=== PATIENT | male | born 1945 | race Hispanic/Latino ===

== ENCOUNTER 2018-06-22 05:44 | Emergency (ER) | payer MEDICARE ==
[2018-06-22] MEDS ORDERED: XYLOCAINE 1%/ EPI 1:100,000 INFILTRATI NR (07:00)
--- NOTE | 2018-06-22 07:22 | XRay Report ---
PROCEDURE: LEFT FOREARM TECHNIQUE: LEFT forearm radiographs, AP and lateral views. CPT 36489 HISTORY: Pain COMPARISONS: None . FINDINGS: Fracture (s) and/or Dislocation(s): None . Joint space(s): Normal . Soft tissues: There is generalized soft tissue swelling. . Bone mineralization: Normal . Foreign bodies: None . IMPRESSION: There is no fracture or malalignment. There is generalized soft tissue swelling. . This document is electronically signed by Francisco J Lugo MD., June 22 2018 07:20:38 AM ET
[2018-06-22] MEDS ORDERED: ZOFRAN ODT PO ONE (07:30)
[2018-06-22] MEDS ORDERED: ZOFRAN ODT ONE (07:33)
[2018-06-22] MEDS ORDERED: TRIPLE ANTIBIOTIC TP ONE ×2 (07:50→07:51)
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
[2018-06-22 09:03] VITALS: BP 101/56
== END 2018-06-22 09:05 | disposition home or self-care (01) ==
LOC: ED 05:44
DX: S61.522A Laceration with foreign body of left wrist, initial encounter (principal); I10 Essential (primary) hypertension; E11.9 Type 2 diabetes mellitus without complications; F17.200 Nicotine dependence, unspecified, uncomplicated; X99.1XXA Assault by knife, initial encounter; Y93.89 Activity, other specified; Y92.89 Other specified places as the place of occurrence of the external cause; Y99.8 Other external cause status
CPT/HCPCS: A6250; Q0162

== ENCOUNTER 2020-06-11 21:26 | Emergency (ER) | payer MEDICARE ==
[2020-06-11 22:38] VITALS: BP 155/77
== END 2020-06-11 22:36 | disposition left against medical advice (07) ==
LOC: ED 21:26
DX: Z53.21 Procedure and treatment not carried out due to patient leaving prior to being seen by health care provider (principal)

== ENCOUNTER 2021-11-16 12:05 | Inpatient (IN) | payer MEDICARE ==
--- NOTE | 2021-11-16 14:28 | XRay Report ---
CHEST 1 VIEW 11/16/2021 2:11 PM INDICATION / CLINICAL INFORMATION: Dyspnea. COMPARISON: 08/24/2012 FINDINGS: SUPPORT DEVICES: None. HEART / MEDIASTINUM: Cardiomediastinal silhouette is upper limits normal in size. LUNGS / PLEURA: Bibasilar opacities with mild interstitial prominence. No pneumothorax. ADDITIONAL FINDINGS: No significant additional findings. IMPRESSION: 1. Bibasilar opacities, which could represent pneumonia or atelectasis. 2. Mild interstitial prominence suggesting pulmonary edema. Signer Name: Cr Escobedo MD Signed: 11/16/2021 2:24 PM Workstation Name: [id number]
[2021-11-16] MEDS ORDERED: cefTRIAXone/NS 1 GM/50 ML 1 GM/50 ML BAG IV ONE (14:30)
[2021-11-16] MEDS ORDERED: AZITHROMYCIN/NS 500 MG/250 ML 500 MG/250 ML BAG IV ONE (14:30)
--- NOTE | 2021-11-16 14:37 | Emergency Department Report ---
ED Shortness of Breath HPI - General Chief Complaint: Dyspnea/Respdistress Stated Complaint: RAVINDER/CHEST PAIN Time Seen by Provider: 11/16/21 14:05 Source: patient, EMS, old records reviewed Mode of arrival: Stretcher Limitations: No Limitations - History of Present Illness Initial Comments: 76-year-old male with a past medical history of morbid obesity, hypertension, diabetes, and bipolar disorder presents to the hospital respiratory distress. Nurse reports a room air saturation of 80%. Patient required CPAP in route to the hospital with improvement in oxygenation. Patient apparently also complained of chest pain. At time my evaluation patient is currently on BiPAP and denies pain at this time. He denies home oxygen use EMS EKG reviewed and shows sinus tach with left anterior fascicular block. No STEMI - Related Data Home Medications Medication Instructions Recorded Confirmed Last Taken Aspirin EC [Halfprin EC] 81 mg PO QDAY 01/05/13 01/05/13 01/04/13 Buspirone HCl [busPIRone] 30 mg PO BID 01/05/13 01/05/13 01/04/13 atenoloL [Tenormin] 50 mg PO DAILY 01/05/13 01/05/13 01/04/13 hydroCHLOROthiazide [Hctz] 25 mg PO QDAY 01/05/13 01/05/13 01/04/13 verapamiL [Calan] 80 mg PO TID 01/05/13 01/05/13 01/04/13 Previous Rx's Medication Instructions Recorded Last Taken Type Naproxen [Naprosyn TAB] 500 mg PO BID #30 tablet 01/05/13 Unknown Rx methOCARBAMOL [Robaxin] 500 mg PO BID PRN #30 tab 01/05/13 Unknown Rx traMADoL [Ultram 50 MG tab] 50 mg PO Q6HR PRN #30 tablet 01/05/13 Unknown Rx Ibuprofen [Motrin] 800 mg PO Q8HR PRN #30 tablet 06/22/18 Unknown Rx Allergies Allergy/AdvReac Type Severity Reaction Status Date / Time Penicillins Allergy Unknown Verified 11/16/21 13:54 ED Review of Systems ROS: Stated complaint: RAVINDER/CHEST PAIN Other details as noted in HPI Comment: All other systems reviewed and negative ED Past Medical Hx - Past Medical History Hx Hypertension: Yes Hx Diabetes: Yes Hx Psychiatric Treatment: Yes (anxiety bipolar) - Social History Smoking Status: Never Smoker Substance Use Type: None - Medications Home Medications: Home Medications Medication Instructions Recorded Confirmed Last Taken Type Aspirin EC [Halfprin EC] 81 mg PO QDAY 01/05/13 01/05/13 01/04/13 History Buspirone HCl [busPIRone] 30 mg PO BID 01/05/13 01/05/13 01/04/13 History Naproxen [Naprosyn TAB] 500 mg PO BID #30 tablet 01/05/13 Unknown Rx atenoloL [Tenormin] 50 mg PO DAILY 01/05/13 01/05/13 01/04/13 History hydroCHLOROthiazide [Hctz] 25 mg PO QDAY 01/05/13 01/05/13 01/04/13 History methOCARBAMOL [Robaxin] 500 mg PO BID PRN #30 tab 01/05/13 Unknown Rx traMADoL [Ultram 50 MG tab] 50 mg PO Q6HR PRN #30 tablet 01/05/13 Unknown Rx verapamiL [Calan] 80 mg PO TID 01/05/13 01/05/13 01/04/13 History Ibuprofen [Motrin] 800 mg PO Q8HR PRN #30 tablet 06/22/18 Unknown Rx ED Physical Exam - General Limitations: No Limitations - Other Other exam information: General: Mild respiratory distress on BiPAP Head: Atraumatic Eyes: normal appearance ENT: Moist mucous membranes Neck: Normal appearance, no midline tenderness Chest: Tachypnea, diminished breath sounds bilateral CV: Regular rate and rhythm Abdomen: Soft, normal bowel sounds, nontender, nondistended, no rebound or guarding Back: Normal inspection Extremity: Significant bilateral lower extremity. Neuro: Alert, equal upper and lower extremities Psych: Appropriate behavior Skin: No rash ED Course Vital Signs 11/16/21 11/16/21 11/16/21 12:06 12:10 12:13 Temperature 98.4 F 99.4 F Pulse Rate 88 57 L 81 Respiratory 28 H 14 26 H Rate Blood Pressure 133/57 102/60 Blood Pressure 158/78 102/60 [Right] O2 Sat by Pulse 90 95 85 Oximetry 11/16/21 11/16/21 11/16/21 12:46 14:32 15:35 Temperature 97.6 F Pulse Rate 58 L 60 61 Respiratory 24 24 18 Rate Blood Pressure Blood Pressure 138/57 142/59 144/77 [Right] O2 Sat by Pulse 95 93 94 Oximetry ED Medical Decision Making - Lab Data Result diagrams: 11/16/21 15:30 11/16/21 15:30 Lab Results 11/16/21 11/16/21 11/16/21 Range/Units 14:40 15:30 15:30 WBC 15.7 H (4.5-11.0) K/mm3 RBC 4.72 (3.65-5.03) M/mm3 Hgb 13.9 (11.8-15.2) gm/dl Hct 44.1 (35.5-45.6) % MCV 94 (84-94) fl MCH 30 (28-32) pg MCHC 32 (32-34) % RDW 16.4 H (13.2-15.2) % Plt Count 252 (140-440) K/mm3 PT 13.6 (12.2-14.9) Sec. INR 0.92 (0.87-1.13) APTT 30.4 (24.2-36.6) Sec. ABG pH 7.200 L (7.350-7.450) pH Units ABG pCO2 95.2 mm Hg ABG pO2 69.5 L (80.0-90.0) mm Hg ABG HCO3 36.4 H (20.0-26.0) mmol/L ABG O2 Saturation 90.0 L (95.0-99.0) % ABG O2 Content 16.2 (0.0-44) ABG Base Excess 5.2 H (-2.0-3.0) mmol/L ABG Hemoglobin 13.1 L (14.0-18.0) gm/dl ABG Carboxyhemoglobin 1.9 (0.0-5.0) % ABG Methemoglobin 0.4 (0.0-1.5) % Oxyhemoglobin 87.9 L (95.0-99.0) % FiO2 45 % Sodium (137-145) mmol/L Potassium (3.6-5.0) mmol/L Chloride (98-107) mmol/L Carbon Dioxide (22-30) mmol/L Anion Gap mmol/L BUN (9-20) mg/dL Creatinine (0.8-1.3) mg/dL Estimated GFR ml/min BUN/Creatinine Ratio % Glucose (75-100) mg/dL Calcium (8.4-10.2) mg/dL Total Bilirubin (0.1-1.2) mg/dL AST (5-40) units/L ALT (7-56) units/L Alkaline Phosphatase (35-129) units/L Troponin T (0.00-0.029) ng/mL Total Protein (6.3-8.2) g/dL Albumin (3.9-5) g/dL Albumin/Globulin Ratio % 11/16/21 Range/Units 15:30 WBC (4.5-11.0) K/mm3 RBC (3.65-5.03) M/mm3 Hgb (11.8-15.2) gm/dl Hct (35.5-45.6) % MCV (84-94) fl MCH (28-32) pg MCHC (32-34) % RDW (13.2-15.2) % Plt Count (140-440) K/mm3 PT (12.2-14.9) Sec. INR (0.87-1.13) APTT (24.2-36.6) Sec. ABG pH (7.350-7.450) pH Units ABG pCO2 mm Hg ABG pO2 (80.0-90.0) mm Hg ABG HCO3 (20.0-26.0) mmol/L ABG O2 Saturation (95.0-99.0) % ABG O2 Content (0.0-44) ABG Base Excess (-2.0-3.0) mmol/L ABG Hemoglobin (14.0-18.0) gm/dl ABG Carboxyhemoglobin (0.0-5.0) % ABG Methemoglobin (0.0-1.5) % Oxyhemoglobin (95.0-99.0) % FiO2 % Sodium 133 L (137-145) mmol/L Potassium 5.1 H (3.6-5.0) mmol/L Chloride 92.1 L (98-107) mmol/L Carbon Dioxide 32 H (22-30) mmol/L Anion Gap 14 mmol/L BUN 15 (9-20) mg/dL Creatinine 0.8 (0.8-1.3) mg/dL Estimated GFR > 60 ml/min BUN/Creatinine Ratio 19 % Glucose 126 H (75-100) mg/dL Calcium 8.7 (8.4-10.2) mg/dL Total Bilirubin 0.20 (0.1-1.2) mg/dL AST 54 H (5-40) units/L ALT 43 (7-56) units/L Alkaline Phosphatase 79 (35-129) units/L Troponin T < 0.010 (0.00-0.029) ng/mL Total Protein 6.5 (6.3-8.2) g/dL Albumin 3.5 L (3.9-5) g/dL Albumin/Globulin Ratio 1.2 % - EKG Data -: EKG Interpreted by Me EKG shows normal: sinus rhythm, ST-T waves (no stemi, rbbb, lpfb) Rate: normal (67) - EKG Data When compared to previous EKG there are: previous EKG unavailable - Radiology Data Radiology results: report reviewed CHEST 1 VIEW 11/16/2021 2:11 PM INDICATION / CLINICAL INFORMATION: Dyspnea. COMPARISON: 08/24/2012 FINDINGS: SUPPORT DEVICES: None. HEART / MEDIASTINUM: Cardiomediastinal silhouette is upper limits normal in size. LUNGS / PLEURA: Bibasilar opacities with mild interstitial prominence. No pneumothorax. ADDITIONAL FINDINGS: No significant additional findings. IMPRESSION: 1. Bibasilar opacities, which could represent pneumonia or atelectasis. 2. Mild interstitial prominence suggesting pulmonary edema. - Medical Decision Making 42-[id number]-old male presents to the hospital respiratory distress requiring BiPAP support. Patient also had hypoxia and hypercapnia noted with respiratory acidosis on ABG results. Patient on BiPAP support. Pulmonology consult ordered. EKG without acute ST elevation [place]. Patient does have signs of a right bundle branch block without previous EKG for comparison. Troponin negative. Chest x-ray differential includes infiltrate versus pulmonary edema. Elevated BNP noted as well as leukocytosis. Blood cultures ordered. Patient treated with antibiotics for community-acquired pneumonia as well as IV Lasix for CHF. He will need admission to the hospital for further management. Case discussed with hospitalist Dr. Child Critical Care Time: Yes Critical care time in (mins) excluding proc time.: 65 Critical care attestation.: If time is entered above; I have spent that time in minutes in the direct care of this critically ill patient, excluding procedure time. Critical Care Time: 65 Minutes of critical care time excluding procedures were used in the care of the patient. Patient placed on BiPAP immediately upon ED arrival required continuous BiPAP support for acute respiratory failure with hypoxia and hypercapnia. I reviewed electronic record. Patient required multiple interventions and reassessments. ED Disposition Clinical Impression: Acute respiratory failure with hypoxia and hypercapnia, Opacities of both lungs present on chest x-ray Disposition: ADMITTED INPATIENT Is pt being admited?: Yes Condition: Stable Time of Disposition: 17:20
[2021-11-16 15:47] LABS: Hematocrit 44.1 % (35.5-45.6); Hemoglobin 13.9 gm/dl (11.8-15.2); Mean Corpuscular HGB Conc 32 % (32-34); Mean Corpuscular Volume 94 fl (84-94); Platelet Count 252 K/mm3 (140-440); Red Blood Count 4.72 M/mm3 (3.65-5.03); Red Cell Distribution Width 16.4 % (13.2-15.2)
[2021-11-16 15:56] LABS: INR 0.92 (0.87-1.13)
[2021-11-16 15:58] LABS: Partial Thromboplastin Time 30.4 Sec. (24.2-36.6)
[2021-11-16 16:55] LABS: ABG Base Excess 5.2 mmol/L (-2.0-3.0); ABG HCO3 36.4 mmol/L (20.0-26.0); ABG Methemoglobin 0.4 % (0.0-1.5); ABG PCO2 95.2 mm Hg; ABG PH 7.2 pH Units (7.350-7.450); ABG PO2 69.5 mm Hg (80.0-90.0)
[2021-11-16 17:11] LABS: Alanine Aminotransferase 43 units/L (7-56); Albumin 3.5 g/dL (3.9-5); BUN/Creatinine Ratio 19; Blood Urea Nitrogen 15 mg/dL (9-20); Calcium 8.7 mg/dL (8.4-10.2); Hemolysis Index 29
[2021-11-16] MEDS ORDERED: FUROSEMIDE 40 MG/4 ML INJ IV ONE (17:20)
[2021-11-16] MEDS ORDERED: oxyCODONE /ACETAMINOPHEN 5-325MG TAB PO PRN (17:41)
[2021-11-16] MEDS ORDERED: ONDANSETRON 4 MG/2 ML INJ IV PRN (17:41)
[2021-11-16] MEDS ORDERED: HYDROmorphone 0.5 MG/0.5 ML INJ IV PRN (17:41)
[2021-11-16] MEDS ORDERED: ACETAMINOPHEN 325 MG TAB PO PRN (17:41)
[2021-11-16] MEDS ORDERED: ALBUTEROL 2.5 MG/3 ML NEBU IH PRN (17:41)
--- NOTE | 2021-11-16 17:41 | History and Physical Report ---
History of Present Illness Chief complaint: I cannot breathe and my chest feels tight History of present illness: 76 YO Male with Vascular Dementia, Cerebral Atherosclerosis, HTN, DM, Obesity Hypoventilation Syndrome, Metabolic Syndrome, Bipolar Disorder presents ED for evaluation. Patient reports "it is hard to breathe and I do not feel well". Patient states that he has experienced generalized weakness, chest tightness, dry cough over the past 1 week with persistent and worsening symptoms over the same timeframe. Patient acknowledges increased nebulizer use without relief. EMS was notified and upon arrival the patient was found to be in distress and subsequent transported to [facility] for further care and evaluation of the aforementioned symptoms. Patient knowledges decreased exercise tolerance, dyspnea on exertion, dyspnea at rest, 9 pound weight gain over the past week, leg edema. The patient was seen and evaluated in the emergency department. All lab and imaging studies reviewed. Patient found to have a pulse oximetry of 80% on room air which is consistent with acute hypoxemic respiratory failure as well as clinical symptoms consistent with CHF decompensation. Chest x-ray reveals bilateral pneumonia. Patient admitted to telemetry due to increased risk of worsening symptoms and for medical stabilization. Patient initiated on pneumonia protocol as well as CHF protocol. Patient treated with supplemental oxygen and nebulizer therapy without significant improvement in symptoms. Patient subsequently placed on noninvasive positive pressure ventilation with mild improvement in symptoms. Patient denies fever, chills, skin rash, recent contact, known exposure to COVID-19. No prior admission for review. All medication listed at time of admission as reconciled. Advanced care planning c onducted in ED. Past History Past Medical History: diabetes, hypertension, other (See HPI) Past Surgical History: No surgical history, Other (Reviewed) Social history: . denies: smoking, alcohol abuse, prescription drug abuse Family history: diabetes, hypertension Medications and Allergies Allergies Allergy/AdvReac Type Severity Reaction Status Date / Time Penicillins Allergy Unknown Verified 11/16/21 13:54 Home Medications Medication Instructions Recorded Confirmed Last Taken Type Aspirin EC [Halfprin EC] 81 mg PO QDAY 01/05/13 01/05/13 01/04/13 History Buspirone HCl [busPIRone] 30 mg PO BID 01/05/13 01/05/13 01/04/13 History Naproxen [Naprosyn TAB] 500 mg PO BID #30 tablet 11/01/13 Unknown Rx atenoloL [Tenormin] 50 mg PO DAILY 01/05/13 01/05/13 01/04/13 History hydroCHLOROthiazide [Hctz] 25 mg PO QDAY 01/05/13 01/05/13 01/04/13 History methOCARBAMOL [Robaxin] 500 mg PO BID PRN #30 tab 01/05/13 Unknown Rx traMADoL [Ultram 50 MG tab] 50 mg PO Q6HR PRN #30 tablet 01/05/13 Unknown Rx verapamiL [Calan] 80 mg PO TID 01/05/13 01/05/13 01/04/13 History Ibuprofen [Motrin] 800 mg PO Q8HR PRN #30 tablet 06/22/18 Unknown Rx Review of Systems Constitutional: no weight loss, no weight gain, no fever, no chills Ears, nose, mouth and throat: no ear pain, no ear discharge, no decreased hearing, no nose pain, no nasal congestion Cardiovascular: orthopnea, edema, shortness of breath, dyspnea on exertion, paroxysmal nocturnal dyspnea, leg edema, decreased exercise tolerance, no chest pain Respiratory: cough, cough with sputum, shortness of breath Gastrointestinal: no abdominal pain, no nausea, no vomiting, no diarrhea Genitourinary Male: no hematuria, no flank pain, no discharge, no urinary frequency, no urinary hesitancy Musculoskeletal: no neck stiffness, no neck pain, no shooting arm pain, no arm numbness/tingling, no low back pain Integumentary: no rash, no pruritis, no redness, no sores Neurological: no head injury, no parathesias, no numbness, no seizures Psychiatric: no anxiety, no memory loss, no sleep disturbances, no hypersomnia, no change in appetite Endocrine: no cold intolerance, no heat intolerance, no polyphagia, no polyuria, no nocturia Hematologic/Lymphatic: no easy bruising Allergic/Immunologic: no urticaria, no allergic rhinitis, no wheezing Exam - Constitutional Vitals: Temp Pulse Resp BP Pulse Ox 97.6 F 61 18 144/77 94 11/16/21 14:32 11/16/21 15:35 11/16/21 15:35 11/16/21 15:35 11/16/21 15:35 General appearance: Present: mild distress, obese - EENT Eyes: Present: PERRL ENT: hearing intact, clear oral mucosa - Neck Neck: Present: supple, normal ROM - Respiratory Respiratory effort: normal Respiratory: bilateral: diminished, rales - Cardiovascular Heart Sounds: Present: S1 & S2. Absent: rub, click - Extremities Extremities: pulses symmetrical, No edema Peripheral Pulses: within normal limits - Abdominal General gastrointestinal: Present: soft, non-tender, non-distended, normal bowel sounds Male genitourinary: Present: normal - Integumentary Integumentary: Present: clear, warm, dry - Musculoskeletal Musculoskeletal: gait normal, strength equal bilaterally - Psychiatric Psychiatric: appropriate mood/affect, intact judgment & insight - Neurologic Neurologic: CNII-XII intact, moves all extremities HEART Score - HEART Score Troponin: Troponin T < 0.010 ng/mL (0.00-0.029) 11/16/21 15:30 Results - Labs CBC & Chem 7: 11/16/21 15:30 11/16/21 15:30 Labs: Abnormal lab results 11/16/21 11/16/21 11/16/21 Range/Units 14:40 15:30 15:30 WBC 15.7 H (4.5-11.0) K/mm3 RDW 16.4 H (13.2-15.2) % ABG pH 7.200 L (7.350-7.450) pH Units ABG pO2 69.5 L (80.0-90.0) mm Hg ABG HCO3 36.4 H (20.0-26.0) mmol/L ABG O2 Saturation 90.0 L (95.0-99.0) % ABG Base Excess 5.2 H (-2.0-3.0) mmol/L ABG Hemoglobin 13.1 L (14.0-18.0) gm/dl Oxyhemoglobin 87.9 L (95.0-99.0) % Sodium 133 L (137-145) mmol/L Potassium 5.1 H (3.6-5.0) mmol/L Chloride 92.1 L (98-107) mmol/L Carbon Dioxide 32 H (22-30) mmol/L Glucose 126 H (75-100) mg/dL AST 54 H (5-40) units/L NT-Pro-B Natriuret Pep (0-900) pg/mL Albumin 3.5 L (3.9-5) g/dL 11/16/21 Range/Units 15:30 WBC (4.5-11.0) K/mm3 RDW (13.2-15.2) % ABG pH (7.350-7.450) pH Units ABG pO2 (80.0-90.0) mm Hg ABG HCO3 (20.0-26.0) mmol/L ABG O2 Saturation (95.0-99.0) % ABG Base Excess (-2.0-3.0) mmol/L ABG Hemoglobin (14.0-18.0) gm/dl Oxyhemoglobin (95.0-99.0) % Sodium (137-145) mmol/L Potassium (3.6-5.0) mmol/L Chloride (98-107) mmol/L Carbon Dioxide (22-30) mmol/L Glucose (75-100) mg/dL AST (5-40) units/L NT-Pro-B Natriuret Pep 3063 H (0-900) pg/mL Albumin (3.9-5) g/dL Assessment and Plan - Patient Problems (1) Acute respiratory failure with hypoxia and hypercapnia Status: Acute Plan to address problem: Chest x-ray, supplemental oxygen, pulse oximetry, nebulizer therapy, noninvasive positive pressure ventilation as clinically indicated, pulmonary toilet, supportive care. (2) Pneumonia Status: Acute Plan to address problem: Chest x-ray, supplemental oxygen, pulse oximetry, nebulizer therapy plan, IV antibiotic therapy, (3) CHF (congestive heart failure) Status: Acute Qualifiers: Heart failure type: systolic Heart failure chronicity: acute on chronic Qualified Code(s): I50.23 - Acute on chronic systolic (congestive) heart failure Plan to address problem: CHF protocol: Strict I's/O, monitoring output every shift, daily weight, afterload reduction, blood pressure control, echocardiogram ordered and pending at time of admission, thyroid panel, magnesium level, diuresis with Lasix, cardiology team consulted. (4) SIRS (systemic inflammatory response syndrome) Status: Acute Plan to address problem: CBC, urinalysis, chest x-ray, IV antibiotic therapy, supportive care. Repeat CBC in AM. (5) Obesity hypoventilation syndrome Status: Acute Plan to address problem: Balanced diet, increase physical activity discharge, outpatient bariatric surgery evaluation. (6) Hypertension Status: Acute Qualifiers: Hypertension type: primary hypertension Qualified Code(s): I10 - Essential (primary) hypertension Plan to address problem: Monitor blood pressure every shift, continue medical management. (7) Diabetes Status: Acute Plan to address problem: Consistent carbohydrate diet, Accu-Chek, insulin protocol, hypoglycemia protocol. (8) Metabolic syndrome Status: Acute Plan to address problem: Risk factor reduction, balanced diet, weight reduction, blood glucose control, (9) Vascular dementia Status: Acute Qualifiers: Dementia behavioral disturbance: without behavioral disturbance Qualified Code(s): F01.50 - Vascular dementia without behavioral disturbance Plan to address problem: Verbal prompting, verbal redirection, benzodiazepine therapy as clinically indicated. (10) Cerebral atherosclerosis Status: Acute Plan to address problem: Antiplatelet therapy as clinically indicated, supportive care. (11) DVT prophylaxis Status: Acute Plan to address problem: SCD to bilateral lower extremities while in bed (12) Advance care planning Status: Acute Plan to address problem: Disease education data, care plan discussed, diagnoses discussed, prognosis discussed, patient is full code. Patient knowledges understanding and agreement with care plan, +30 minutes. (13) Preventative health care Status: Acute Plan to address problem: Patient counseled regarding risk factor reduction, meal planning, weight reduction, outpatient follow-up with primary care physician for all age and risk factor appropriate screening test. +30 minutes.
[2021-11-16 18:56] LABS: Basophils % (Manual) 0 % (0.0-1.8); Myelocytes # (Manual) 0.3 K/mm3; Platelet Estimate Consistent w Auto; Stomatocytes 1+; Target Cells 1+; Total Cells Counted 100
[2021-11-16] MEDS ORDERED: VERAPAMIL 80 MG TAB PO SCH (20:00)
[2021-11-16] MEDS ORDERED: BUSPIRONE HCL 30 MG PO SCH (22:00)
[2021-11-16] MEDS: FUROSEMIDE 20 MG/2 ML INJ IV SCH (23:28)
[2021-11-17 08:36] LABS: Hemoglobin 13.4 gm/dl (11.8-15.2); Mean Corpuscular HGB Conc 32 % (32-34); Mean Corpuscular Volume 94 fl (84-94); Platelet Count 219 K/mm3 (140-440); Red Blood Count 4.44 M/mm3 (3.65-5.03); Red Cell Distribution Width 16.2 % (13.2-15.2)
[2021-11-17 08:59] LABS: BUN/Creatinine Ratio 19; Blood Urea Nitrogen 15 mg/dL (9-20); Calcium 8.6 mg/dL (8.4-10.2); Hemolysis Index 9
[2021-11-17 09:18] LABS: Band Neutrophils # (Manual) 0.3 K/mm3; Basophils % (Manual) 0 % (0.0-1.8); Eosinophils % (Manual) 0 % (0.0-4.3); Platelet Estimate Consistent w Auto; RBC Morphology Normal; Total Cells Counted 100
[2021-11-17] MEDS: levoFLOXacin 750 MG TAB PO SCH (09:18)
[2021-11-17] MEDS: ASPIRIN EC 81 MG TAB PO SCH (09:19)
[2021-11-17] MEDS ORDERED: hydroCHLOROthiazide 25 MG TAB PO SCH (10:00)
[2021-11-17] MEDS: busPIRone 10 MG TAB PO SCH ×2 (11:11→21:56)
[2021-11-17] MEDS: NAPROXEN 500 MG TAB PO SCH ×2 (11:11→21:55)
[2021-11-17] MEDS ORDERED: METOPROLOL SUCCINATE XL 50 MG TAB PO SCH (12:00)
[2021-11-17] MEDS: FUROSEMIDE 20 MG/2 ML INJ IV SCH ×4 (12:15→18:29)
--- NOTE | 2021-11-17 12:41 | Consultation ---
History of Present Illness Consult date: 11/17/21 Requesting physician: SYBIL ELLISON Consult reason: congestive heart failure History of present illness: Patient is a 76-year-old male with a reported past medical history of hypertension, diabetes, obesity, and bipolar disorder presented to the ED in respiratory distress. History is taken from chart and patient as patient is a poor historian and when asked reports he is unsure why he came to the hospital. Per documentation patient had O2 sat of 80% on room air. Per documentation patient required CPAP with improved O2. At time of interview patient on room air and reporting that he has been having shortness of breath and dyspnea on exertion for at least a week. He reports that he has had weight gain over several months but states that he has been eating more and been eating more TV dinners. He also reports that he has been having some chills and fevers. In the ED patient was found to have leukocytosis, and CXR showed bilateral pneumonia versus atelectasis, patient was also found to have elevated BNP. Patient denies chest pain, nausea, vomiting, diaphoresis. Patient is previously unknown to our practice. Cardiology is consulted for CHF Past History Past Medical History: diabetes, hypertension, hyperlipidemia, other (See HPI) Past Surgical History: No surgical history, Other (Reviewed) Social history: . denies: smoking, alcohol abuse, prescription drug abuse Family history: diabetes, hypertension Medications and Allergies Allergies Allergy/AdvReac Type Severity Reaction Status Date / Time Penicillins Allergy Unknown Verified 11/16/21 13:54 Home Medications Medication Instructions Recorded Confirmed Last Taken Type Aspirin EC [Halfprin EC] 81 mg PO QDAY 01/05/13 01/05/13 01/04/13 History Buspirone HCl [busPIRone] 30 mg PO BID 01/05/13 01/05/13 01/04/13 History Naproxen [Naprosyn TAB] 500 mg PO BID #30 tablet 01/05/13 Unknown Rx atenoloL [Tenormin] 50 mg PO DAILY 01/05/13 01/05/13 01/04/13 History hydroCHLOROthiazide [Hctz] 25 mg PO QDAY 01/05/13 01/05/13 01/04/13 History methOCARBAMOL [Robaxin] 500 mg PO BID PRN #30 tab 01/05/13 Unknown Rx traMADoL [Ultram 50 MG tab] 50 mg PO Q6HR PRN #30 tablet 01/05/13 Unknown Rx verapamiL [Calan] 80 mg PO TID 01/05/13 01/05/13 01/04/13 History Ibuprofen [Motrin] 800 mg PO Q8HR PRN #30 tablet 06/22/18 Unknown Rx Active Meds: Active Medications Acetaminophen (Acetaminophen 325 Mg Tab) 650 mg PO Q4H PRN PRN Reason: Pain MILD(1-3)/Fever >100.5/VILLELA Albuterol (Albuterol 2.5 Mg/3 Ml Nebu) 2.5 mg IH Q4HRT PRN PRN Reason: Shortness Of Breath Aspirin (Aspirin Ec 81 Mg Tab) 81 mg PO QDAY [facility] Last Admin: 11/17/21 09:19 Dose: 81 mg Buspirone HCl (Buspirone 10 Mg Tab) 30 mg PO BID [facility] Last Admin: 11/17/21 11:11 Dose: 30 mg Furosemide (Furosemide 40 Mg Tab) 40 mg PO QDAY [facility] Furosemide (Furosemide 20 Mg/2 Ml Inj) 40 mg IV BID@0600,1800 [facility] Stop: 11/17/21 19:00 Last Admin: 11/17/21 12:19 Dose: 40 mg Hydrochlorothiazide (Hydrochlorothiazide 25 Mg Tab) 25 mg PO QDAY [facility] Hydromorphone HCl (Hydromorphone 0.5 Mg/0.5 Ml Inj) 0.5 mg IV Q13H PRN PRN Reason: Pain , Severe (7-10) Levofloxacin (Levofloxacin 750 Mg Tab) 750 mg PO Q24HR [facility]; Protocol Last Admin: 11/17/21 09:18 Dose: 750 mg Methocarbamol (Methocarbamol 500 Mg Tab) 500 mg PO BID PRN PRN Reason: Muscle Spasm Naproxen (Naproxen 500 Mg Tab) 500 mg PO BID [facility] Last Admin: 11/17/21 11:11 Dose: 500 mg Ondansetron HCl (Ondansetron 4 Mg/2 Ml Inj) 4 mg IV Q8H PRN PRN Reason: Nausea And Vomiting Oxycodone/Acetaminophen (Oxycodone /Acetaminophen 5-325mg Tab) 1 tab PO Q6H PRN PRN Reason: Pain, Moderate (4-6) Sodium Chloride (Sodium Chloride 0.9% 10 Ml Flush Syringe) 10 ml IV BID [facility] Last Admin: 11/17/21 09:20 Dose: 10 ml Sodium Chloride (Sodium Chloride 0.9% 10 Ml Flush Syringe) 10 ml IV PRN PRN PRN Reason: LINE FLUSH Verapamil HCl (Verapamil 80 Mg Tab) 80 mg PO Q8HR [facility] Review of Systems Constitutional: fever, chills Ears, nose, mouth and throat: no sinus pressure, no sinus pain Cardiovascular: edema, shortness of breath, dyspnea on exertion, no chest pain Respiratory: shortness of breath, dyspnea on exertion Gastrointestinal: no abdominal pain, no nausea, no vomiting Musculoskeletal: no neck stiffness, no neck pain Integumentary: no rash, no pruritis, no redness Neurological: no head injury, no transient paralysis Psychiatric: no anxiety, no memory loss Endocrine: no cold intolerance, no heat intolerance Physical Examination Vital Signs Temp Pulse Resp BP Pulse Ox 98.4 F 88 28 H 158/78 90 11/16/21 12:06 11/16/21 12:06 11/16/21 12:06 11/16/21 12:06 11/16/21 12:06 General appearance: no acute distress HEENT: Positive: PERRL Neck: Positive: trachea midline Cardiac: Positive: Reg Rate and Rhythm Lungs: Positive: Decreased Breath Sounds Neuro: Positive: Grossly Intact Abdomen: Positive: Soft Skin: Negative: Rash, Suspicious Lesions, Ulceration Extremities: Present: upper extr. pulses, pedal edema Results 11/17/21 08:28 11/17/21 08:28 Cardiac Enzymes 11/16/21 Range/Units 15:30 AST 54 H (5-40) units/L Coagulation 11/16/21 Range/Units 15:30 PT 13.6 (12.2-14.9) Sec. INR 0.92 (0.87-1.13) APTT 30.4 (24.2-36.6) Sec. CBC 11/16/21 11/17/21 Range/Units 15:30 08:28 WBC 15.7 H 14.9 H (4.5-11.0) K/mm3 RBC 4.72 4.44 (3.65-5.03) M/mm3 Hgb 13.9 13.4 (11.8-15.2) gm/dl Hct 44.1 42.0 (35.5-45.6) % Plt Count 252 219 (140-440) K/mm3 Comprehensive Metabolic Panel 11/16/21 11/17/21 Range/Units 15:30 08:28 Sodium 133 L 133 L (137-145) mmol/L Potassium 5.1 H 4.9 (3.6-5.0) mmol/L Chloride 92.1 L 93.0 L (98-107) mmol/L Carbon Dioxide 32 H 38 H (22-30) mmol/L BUN 15 15 (9-20) mg/dL Creatinine 0.8 0.8 (0.8-1.3) mg/dL Glucose 126 H 113 H (75-100) mg/dL Calcium 8.7 8.6 (8.4-10.2) mg/dL AST 54 H (5-40) units/L ALT 43 (7-56) units/L Alkaline Phosphatase 79 (35-129) units/L Total Protein 6.5 (6.3-8.2) g/dL Albumin 3.5 L (3.9-5) g/dL - Imaging and Cardiology Echo: report reviewed EKG: report reviewed, image reviewed EKG interpretations - Telemetry EKG Rhythm: Sinus Tachycardia - EKG Sinus rhythms and dysrhythmias: sinus tachycardia Repolarization changes or abnormalities: nonspecific abnormality, ST segment, an d/or T wave Assessment and Plan Patient is a 76-year-old male with a reported past medical history of hypertension, diabetes, obesity, and bipolar disorder presented to the ED in respiratory distress who reports SOB for at least 1 week Acute respiratory failure Acute HFpEF Obesity hypoventilation syndrome Pneumonia? Hypertension Morbid obesity Diabetes next Echo 11/16/2021- Technically difficult study. EF 50 to 55%. Right ventricular systolic function is normal. No aortic regurgitation is present. Mild mitral regurgitation noted. Plan: EKG shows sinus tach with nonspecific T abnormalities no acute ischemic changes. Troponins negative x2. Patient denies any complaint of chest pain. AMI ruled out BNP noted to be elevated and patient was short of breath while increased to one- time dose of Lasix 40 mg IV for this evening. Will convert to Lasix 40 mg p.o. daily in the a.m. Strict I&O's, daily weights, repeat BMP in the a.m. close monitoring renal function Echo results noted above Patient currently on hydrochlorothiazide, verapamil, Due to patient's size and weight unable to perform ischemic eval Patient seen in conjunction with Dr. Sage who agrees with this plan of care - Patient Problems (1) Acute heart failure with preserved ejection fraction (HFpEF) Current Visit: Yes Status: Acute (2) Acute respiratory failure with hypoxia and hypercapnia Current Visit: Yes Status: Acute (3) Opacities of both lungs present on chest x-ray Current Visit: Yes Status: Acute (4) Diabetes Current Visit: No Status: Acute (5) Hypertension Current Visit: No Status: Acute Qualifiers: Hypertension type: primary hypertension Qualified Code(s): I10 - Essential (primary) hypertension (6) Obesity hypoventilation syndrome Current Visit: No Status: Acute (7) Pneumonia Current Visit: No Status: Acute
--- NOTE | 2021-11-17 13:04 | Event Note ---
Date: 11/17/21 Full not to follow: Morbidly obese male admitted with hypoxic respiratory failure and chest pain. Per chart weaned to room air. Will see patient later this afternoon after clinic but request the following: If truly on room air please perform ABG Agree with diuresis Suggest walk test prior to discharge Needs outpatient PSG
--- NOTE | 2021-11-17 13:05 | Consultation ---
History of Present Illness Consult date: 11/17/21 Reason for consult: hypoxemia History of present illness: 76 y/o male admitted with hypercapnic, hypoxic respiratory failure. Current smoker, obese. Denies chest pain but has noticed significant weight gain and swelling. Past History Past Medical History: diabetes, hypertension, hyperlipidemia, other (See HPI) Past Surgical History: No surgical history, Other (Reviewed) Social history: , smoking (smoker, current and has smoked for approximeat syed 30 years). denies: alcohol abuse, prescription drug abuse Family history: diabetes, hypertension Medications and Allergies Allergies Allergy/AdvReac Type Severity Reaction Status Date / Time Penicillins Allergy Unknown Verified 11/16/21 13:54 Home Medications Medication Instructions Recorded Confirmed Last Taken Type Aspirin EC [Halfprin EC] 81 mg PO QDAY 01/05/13 01/05/13 01/04/13 History Buspirone HCl [busPIRone] 30 mg PO BID 01/05/13 01/05/13 01/04/13 History Naproxen [Naprosyn TAB] 500 mg PO BID #30 tablet 01/05/13 Unknown Rx atenoloL [Tenormin] 50 mg PO DAILY 01/05/13 01/05/13 01/04/13 History hydroCHLOROthiazide [Hctz] 25 mg PO QDAY 01/05/13 01/05/13 01/04/13 History methOCARBAMOL [Robaxin] 500 mg PO BID PRN #30 tab 01/05/13 Unknown Rx traMADoL [Ultram 50 MG tab] 50 mg PO Q6HR PRN #30 tablet 01/05/13 Unknown Rx verapamiL [Calan] 80 mg PO TID 01/05/13 01/05/13 01/04/13 History Ibuprofen [Motrin] 800 mg PO Q8HR PRN #30 tablet 06/22/18 Unknown Rx Active Meds: Active Medications Acetaminophen (Acetaminophen 325 Mg Tab) 650 mg PO Q4H PRN PRN Reason: Pain MILD(1-3)/Fever >100.5/VILLELA Albuterol (Albuterol 2.5 Mg/3 Ml Nebu) 2.5 mg IH Q4HRT PRN PRN Reason: Shortness Of Breath Aspirin (Aspirin Ec 81 Mg Tab) 81 mg PO QDAY [facility] Last Admin: 11/17/21 09:19 Dose: 81 mg Buspirone HCl (Buspirone 10 Mg Tab) 30 mg PO BID [facility] Last Admin: 11/17/21 11:11 Dose: 30 mg Furosemide (Furosemide 40 Mg Tab) 40 mg PO QDAY [facility] Furosemide (Furosemide 20 Mg/2 Ml Inj) 40 mg IV BID@0600,1800 [facility] Stop: 11/17/21 19:00 Last Admin: 11/17/21 12:19 Dose: 40 mg Hydrochlorothiazide (Hydrochlorothiazide 25 Mg Tab) 25 mg PO QDAY [facility] Hydromorphone HCl (Hydromorphone 0.5 Mg/0.5 Ml Inj) 0.5 mg IV Q13H PRN PRN Reason: Pain , Severe (7-10) Levofloxacin (Levofloxacin 750 Mg Tab) 750 mg PO Q24HR [facility]; Protocol Last Admin: 11/17/21 09:18 Dose: 750 mg Methocarbamol (Methocarbamol 500 Mg Tab) 500 mg PO BID PRN PRN Reason: Muscle Spasm Naproxen (Naproxen 500 Mg Tab) 500 mg PO BID [facility] Last Admin: 11/17/21 11:11 Dose: 500 mg Ondansetron HCl (Ondansetron 4 Mg/2 Ml Inj) 4 mg IV Q8H PRN PRN Reason: Nausea And Vomiting Oxycodone/Acetaminophen (Oxycodone /Acetaminophen 5-325mg Tab) 1 tab PO Q6H PRN PRN Reason: Pain, Moderate (4-6) Sodium Chloride (Sodium Chloride 0.9% 10 Ml Flush Syringe) 10 ml IV BID [facility] Last Admin: 11/17/21 09:20 Dose: 10 ml Sodium Chloride (Sodium Chloride 0.9% 10 Ml Flush Syringe) 10 ml IV PRN PRN PRN Reason: LINE FLUSH Verapamil HCl (Verapamil 80 Mg Tab) 80 mg PO Q8HR [facility] Review of Systems All systems: negative Physical Examination Vital signs: Vital Signs Temp Pulse Resp BP Pulse Ox 98.4 F 88 28 H 158/78 90 11/16/21 12:06 11/16/21 12:06 11/16/21 12:06 11/16/21 12:06 11/16/21 12:06 General appearance: alert, other (obese) Eyes: non-icteric ENT: oropharynx moist Neck: supple Effort: mildly labored Ascultation: Bilateral: rales Percussion: Bilateral: not dull Tactile fremitus: Bilateral: normal Cardiovascular: regular rate and rhythm Gastrointestinal: normoactive bowel sounds Extremities: edema, anasarca normal mental status, non-focal exam Results - Laboratory Findings CBC and BMP: 11/17/21 08:28 11/17/21 08:28 ABG ABG pH 7.200 pH Units (7.350-7.450) L 11/16/21 14:40 ABG pCO2 95.2 mm Hg 11/16/21 14:40 ABG pO2 69.5 mm Hg (80.0-90.0) L 11/16/21 14:40 ABG O2 Saturation 90.0 % (95.0-99.0) L 11/16/21 14:40 PT/INR, D-dimer PT 13.6 Sec. (12.2-14.9) 11/16/21 15:30 INR 0.92 (0.87-1.13) 11/16/21 15:30 Abnormal lab findings: Abnormal Labs 11/16/21 11/16/21 11/16/21 14:40 15:30 15:30 WBC 15.7 H RDW 16.4 H Seg Neuts % (Manual) 82.0 H Lymphocytes % (Manual) 12.0 L Seg Neutrophils # Man 12.9 H Lymphocytes # (Manual) ABG pH 7.200 L ABG pO2 69.5 L ABG HCO3 36.4 H ABG O2 Saturation 90.0 L ABG Base Excess 5.2 H ABG Hemoglobin 13.1 L Oxyhemoglobin 87.9 L Sodium 133 L Potassium 5.1 H Chloride 92.1 L Carbon Dioxide 32 H Glucose 126 H AST 54 H NT-Pro-B Natriuret Pep Albumin 3.5 L 11/16/21 11/17/21 11/17/21 15:30 08:28 08:28 WBC 14.9 H RDW 16.2 H Seg Neuts % (Manual) 88.0 H Lymphocytes % (Manual) 6.0 L Seg Neutrophils # Man 13.1 H Lymphocytes # (Manual) 0.9 L ABG pH ABG pO2 ABG HCO3 ABG O2 Saturation ABG Base Excess ABG Hemoglobin Oxyhemoglobin Sodium 133 L Potassium Chloride 93.0 L Carbon Dioxide 38 H Glucose 113 H AST NT-Pro-B Natriuret Pep 3063 H Albumin - Diagnostic Findings Chest x-ray: image reviewed Assessment and Plan 76 y/o male with obesity hypoventilation syndrome and acute respiratory failure likely from volume overload but could have component of COPD as well given smoking history. 1. Agree with diuresis 2. Hold on steroids 3. OBtain room air ABG 4. Likely will need oxygen and NIV therapy 5. Weight loss.
[2021-11-17] MEDS: VERAPAMIL 80 MG TAB PO SCH ×2 (14:46→21:56)
--- NOTE | 2021-11-17 14:54 | Progress Note ---
Assessment and Plan (1) Acute respiratory failure with hypoxia and hypercapnia Status: Acute Plan to address problem: Chest x-ray, supplemental oxygen, pulse oximetry, nebulizer therapy, noninvasive positive pressure ventilation as clinically indicated, pulmonary toilet, supportive care. (2) Pneumonia Status: Acute Plan to address problem: Chest x-ray, supplemental oxygen, pulse oximetry, nebulizer therapy plan, IV antibiotic therapy, (3) CHF (congestive heart failure) Status: Acute Qualifiers: Heart failure type: systolic Heart failure chronicity: acute on chronic Qualified Code(s): I50.23 - Acute on chronic systolic (congestive) heart failure Plan to address problem: CHF protocol: Strict I's/O, monitoring output every shift, daily weight, afterload reduction, blood pressure control, echocardiogram ordered and pending at time of admission, thyroid panel, magnesium level, diuresis with Lasix, cardiology team consulted. (4) SIRS (systemic inflammatory response syndrome) Status: Acute Plan to address problem: CBC, urinalysis, chest x-ray, IV antibiotic therapy, supportive care. Repeat CBC in AM. (5) Obesity hypoventilation syndrome Status: Acute Plan to address problem: Balanced diet, increase physical activity discharge, outpatient bariatric surgery evaluation. (6) Hypertension Status: Acute Qualifiers: Hypertension type: primary hypertension Qualified Code(s): I10 - Essential (primary) hypertension Plan to address problem: Monitor blood pressure every shift, continue medical management. (7) Diabetes Status: Acute Plan to address problem: Consistent carbohydrate diet, Accu-Chek, insulin protocol, hypoglycemia protocol. (8) Metabolic syndrome Status: Acute Plan to address problem: Risk factor reduction, balanced diet, weight reduction, blood glucose control, (9) Vascular dementia Status: Acute Qualifiers: Dementia behavioral disturbance: without behavioral disturbance Qualified Code(s): F01.50 - Vascular dementia without behavioral disturbance Plan to address problem: Verbal prompting, verbal redirection, benzodiazepine therapy as clinically indicated. (10) Cerebral atherosclerosis Status: Acute Plan to address problem: Antiplatelet therapy as clinically indicated, supportive care. (11) DVT prophylaxis Status: Acute Plan to address problem: SCD to bilateral lower extremities while in bed (12) Advance care planning Status: Acute Plan to address problem: Disease education data, care plan discussed, diagnoses discussed, prognosis discussed, patient is full code. Patient knowledges understanding and agreement with care plan, +30 minutes. (13) Preventative health care Status: Acute Plan to address problem: Patient counseled regarding risk factor reduction, meal planning, weight reduction, outpatient follow-up with primary care physician for all age and risk factor appropriate screening test. +30 minutes. Subjective Date of service: 11/17/21 Objective - Constitutional Vitals: Vital Signs - 12hr 11/17/21 11/17/21 11/17/21 04:32 08:00 08:16 Temperature 98.4 F Pulse Rate 71 65 Respiratory 24 Rate Blood Pressure 136/64 Blood Pressure [Right] O2 Sat by Pulse 98 96 96 Oximetry 11/17/21 11/17/21 11/17/21 09:05 09:49 09:50 Temperature Pulse Rate 94 H Respiratory 16 Rate Blood Pressure Blood Pressure [Right] O2 Sat by Pulse 96 95 93 Oximetry 11/17/21 11/17/21 11/17/21 10:00 10:10 10:20 Temperature Pulse Rate 93 H 92 H Respiratory 16 14 Rate Blood Pressure 143/91 144/100 130/89 Blood Pressure [Right] O2 Sat by Pulse 96 Oximetry 11/17/21 11/17/21 11/17/21 10:30 10:40 11:02 Temperature Pulse Rate 208 H Respiratory 25 H Rate Blood Pressure 130/85 135/92 126/85 Blood Pressure [Right] O2 Sat by Pulse 94 100 95 Oximetry 11/17/21 11/17/21 11/17/21 11:10 11:20 14:00 Temperature 98.1 F Pulse Rate 149 H 69 Respiratory 14 20 24 Rate Blood Pressure 130/87 125/86 Blood Pressure 103/52 [Right] O2 Sat by Pulse 95 96 90 Oximetry - Labs CBC & Chem 7: 11/17/21 08:28 11/17/21 08:28 Labs: Abnormal lab results 11/16/21 11/16/21 11/16/21 Range/Units 14:40 15:30 15:30 WBC 15.7 H (4.5-11.0) K/mm3 RDW 16.4 H (13.2-15.2) % Seg Neuts % (Manual) 82.0 H (40.0-70.0) % Lymphocytes % (Manual) 12.0 L (13.4-35.0) % Seg Neutrophils # Man 12.9 H (1.8-7.7) K/mm3 Lymphocytes # (Manual) (1.2-5.4) K/mm3 ABG pH 7.200 L (7.350-7.450) pH Units ABG pO2 69.5 L (80.0-90.0) mm Hg ABG HCO3 36.4 H (20.0-26.0) mmol/L ABG O2 Saturation 90.0 L (95.0-99.0) % ABG Base Excess 5.2 H (-2.0-3.0) mmol/L ABG Hemoglobin 13.1 L (14.0-18.0) gm/dl Oxyhemoglobin 87.9 L (95.0-99.0) % Sodium 133 L (137-145) mmol/L Potassium 5.1 H (3.6-5.0) mmol/L Chloride 92.1 L (98-107) mmol/L Carbon Dioxide 32 H (22-30) mmol/L Glucose 126 H (75-100) mg/dL AST 54 H (5-40) units/L NT-Pro-B Natriuret Pep (0-900) pg/mL Albumin 3.5 L (3.9-5) g/dL 11/16/21 11/17/21 11/17/21 Range/Units 15:30 08:28 08:28 WBC 14.9 H (4.5-11.0) K/mm3 RDW 16.2 H (13.2-15.2) % Seg Neuts % (Manual) 88.0 H (40.0-70.0) % Lymphocytes % (Manual) 6.0 L (13.4-35.0) % Seg Neutrophils # Man 13.1 H (1.8-7.7) K/mm3 Lymphocytes # (Manual) 0.9 L (1.2-5.4) K/mm3 ABG pH (7.350-7.450) pH Units ABG pO2 (80.0-90.0) mm Hg ABG HCO3 (20.0-26.0) mmol/L ABG O2 Saturation (95.0-99.0) % ABG Base Excess (-2.0-3.0) mmol/L ABG Hemoglobin (14.0-18.0) gm/dl Oxyhemoglobin (95.0-99.0) % Sodium 133 L (137-145) mmol/L Potassium (3.6-5.0) mmol/L Chloride 93.0 L (98-107) mmol/L Carbon Dioxide 38 H (22-30) mmol/L Glucose 113 H (75-100) mg/dL AST (5-40) units/L NT-Pro-B Natriuret Pep 3063 H (0-900) pg/mL Albumin (3.9-5) g/dL HEART Score - HEART Score Troponin: Troponin T < 0.010 ng/mL (0.00-0.029) 11/16/21 19:31
[2021-11-17 15:44] LABS: ABG Base Excess 10.5 mmol/L (-2.0-3.0); ABG HCO3 38.1 mmol/L (20.0-26.0); ABG Methemoglobin 0.6 % (0.0-1.5); ABG Oxygen Saturation 80.5 % (95.0-99.0); ABG PCO2 64.4 mm Hg; ABG PH 7.39 pH Units (7.350-7.450)
[2021-11-18] MEDS: VERAPAMIL 80 MG TAB PO SCH ×3 (05:35→22:12)
--- NOTE | 2021-11-18 09:40 | Electrocardiograph Report ---
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
[2021-11-18] MEDS: levoFLOXacin 750 MG TAB PO SCH (10:05)
[2021-11-18] MEDS: NAPROXEN 500 MG TAB PO SCH (10:05)
[2021-11-18] MEDS: hydroCHLOROthiazide 25 MG TAB PO SCH (10:05)
[2021-11-18] MEDS: ASPIRIN EC 81 MG TAB PO SCH (10:05)
[2021-11-18] MEDS: FUROSEMIDE 40 MG TAB PO SCH (10:05)
[2021-11-18] MEDS: busPIRone 10 MG TAB PO SCH ×3 (10:05→22:16)
--- NOTE | 2021-11-18 11:24 | Progress Note ---
Assessment and Plan Patient is a 76-year-old male with a reported past medical history of hypertension, diabetes, obesity, and bipolar disorder presented to the ED in respiratory distress who reports SOB for at least 1 week Acute respiratory failure Acute HFpEF Obesity hypoventilation syndrome Pneumonia? Hypertension Morbid obesity Diabetes next Echo 11/16/2021- Technically difficult study. EF 50 to 55%. Right ventricular systolic function is normal. No aortic regurgitation is present. Mild mitral regurgitation noted. Plan: EKG shows sinus tach with nonspecific T abnormalities no acute ischemic changes. Troponins negative x2. Patient denies any complaint of chest pain. AMI ruled out Continue Lasix 40 mg p.o. daily Strict I&O's, daily weights, repeat BMP in the a.m. close monitoring renal function Echo results noted above Patient currently on aspirin, hydrochlorothiazide, verapamil, Due to patient's size and weight unable to perform ischemic eval. May be considered as an outpatient Cardiac status otherwise stable for discharge Patient should follow with their primary care provider in 1 to 2 days discharge. Patient may also follow-up with our group, [facility] heart specialists, in 1 to 2 weeks after discharge. Phone #[phone] Patient seen in conjunction with Dr. Sage who agrees with this plan of care - Patient Problems (1) Acute heart failure with preserved ejection fraction (HFpEF) Current Visit: Yes Status: Acute (2) Acute respiratory failure with hypoxia and hypercapnia Current Visit: Yes Status: Acute (3) Opacities of both lungs present on chest x-ray Current Visit: Yes Status: Acute (4) Diabetes Current Visit: No Status: Acute (5) Hypertension Current Visit: No Status: Acute Qualifiers: Hypertension type: primary hypertension Qualified Code(s): I10 - Essential (primary) hypertension (6) Obesity hypoventilation syndrome Current Visit: No Status: Acute (7) Pneumonia Current Visit: No Status: Acute Subjective Date of service: 11/18/21 Principal diagnosis: Acute respiratory failure, obesity hypoventilation syndrome Interval history: Resting in bed in no acute distress Noncompliant with box person Objective Vital Signs Temp Pulse Resp BP BP Pulse Ox 11/18/21 08:05 98.0 F 61 16 144/70 87 11/18/21 05:35 52 L 11/18/21 00:40 52 L 16 98 11/18/21 00:18 97.5 F L 60 16 138/63 88 11/17/21 22:00 90 11/17/21 21:55 20 11/17/21 20:58 22 11/17/21 20:30 67 22 96 11/17/21 20:04 98.4 F 68 16 119/56 90 11/17/21 17:44 98.2 F 67 113/56 11/17/21 14:00 98.1 F 69 24 103/52 90 - Physical Examination General: No Apparent Distress HEENT: Positive: PERRL Neck: Positive: trachea midline Cardiac: Positive: Reg Rate and Rhythm Lungs: Positive: Decreased Breath Sounds Neuro: Positive: Grossly Intact Abdomen: Positive: Soft Skin: Negative: Rash, Suspicious Lesions, Ulceration Extremities: Present: upper extr. pulses, pedal edema - Imaging and Cardiology EKG: report reviewed, image reviewed Echo: report reviewed - EKG Sinus rhythms and dysrhythmias: sinus tachycardia Repolarization changes or abnormalities: nonspecific abnormality, ST segment, and/or T wave
--- NOTE | 2021-11-18 13:37 | Progress Note ---
Assessment and Plan 76 y/o male with obesity hypoventilation syndrome and acute respiratory failure likely from volume overload but could have component of COPD as well given smoking history. 1. May need to consider putting back on IV lasix 2. Will add BID Pulmicort and Brovana therapy 3. Hold on IV steroids unless oxygen requirement continues to increase 4. Patient is willing to use NIV at home. Spoke with CM. Will reach out to [facility]. Will also need home O2 based on room air ABG. 5. Patient requires volume ventilation and all other therapies including bipap have been considered and ruled out due to the severity of the disease state and life threatening conditions including CO2 retention. Due to increased probability of acute exacerbation, patient requires mouthpiece ventilation to be used during the day as needed in addition to QHS usage with facemask. Patient suffers from chronic respiratory failure secondary to Obesity Hypoventilation syndrome and likely COPD given his smoking history. Subjective Date of service: 11/18/21 Principal diagnosis: Acute respiratory failure, obesity hypoventilation syndrome Interval history: Sitting up on side of the bed. per patient weak and doesn't feel that he can take care of himself at home. His cousin, who is his roomate is in the hospital at [facility]. Also patient is now on oximizer at 9 liters. Comfortable. Has a full bag of urine in adam. Remainder negative. Objective Vital Signs - 12hr 11/18/21 11/18/21 11/18/21 05:35 08:05 10:24 Temperature 98.0 F Pulse Rate 52 L 61 Respiratory 16 22 Rate Blood Pressure 144/70 O2 Sat by Pulse 87 96 Oximetry 11/18/21 11:43 Temperature 98.0 F Pulse Rate 73 Respiratory 18 Rate Blood Pressure 136/60 O2 Sat by Pulse 98 Oximetry CBC and BMP: 11/17/21 08:28 11/17/21 08:28 ABG, PT/INR, D-dimer: ABG ABG pH 7.390 pH Units (7.350-7.450) 11/17/21 15:10 ABG pCO2 64.4 mm Hg 11/17/21 15:10 ABG pO2 42.0 mm Hg (80.0-90.0) L 11/17/21 15:10 ABG O2 Saturation 80.5 % (95.0-99.0) L 11/17/21 15:10 PT/INR, D-dimer PT 13.6 Sec. (12.2-14.9) 11/16/21 15:30 INR 0.92 (0.87-1.13) 11/16/21 15:30 Abnormal lab findings: Abnormal Labs 11/16/21 11/16/21 11/16/21 14:40 15:30 15:30 WBC 15.7 H RDW 16.4 H Seg Neuts % (Manual) 82.0 H Lymphocytes % (Manual) 12.0 L Seg Neutrophils # Man 12.9 H Lymphocytes # (Manual) ABG pH 7.200 L ABG pO2 69.5 L ABG HCO3 36.4 H ABG O2 Saturation 90.0 L ABG Base Excess 5.2 H ABG Hemoglobin 13.1 L Oxyhemoglobin 87.9 L Sodium 133 L Potassium 5.1 H Chloride 92.1 L Carbon Dioxide 32 H Glucose 126 H POC Glucose AST 54 H NT-Pro-B Natriuret Pep Albumin 3.5 L 11/16/21 11/17/21 11/17/21 15:30 08:28 08:28 WBC 14.9 H RDW 16.2 H Seg Neuts % (Manual) 88.0 H Lymphocytes % (Manual) 6.0 L Seg Neutrophils # Man 13.1 H Lymphocytes # (Manual) 0.9 L ABG pH ABG pO2 ABG HCO3 ABG O2 Saturation ABG Base Excess ABG Hemoglobin Oxyhemoglobin Sodium 133 L Potassium Chloride 93.0 L Carbon Dioxide 38 H Glucose 113 H POC Glucose AST NT-Pro-B Natriuret Pep 3063 H Albumin 11/17/21 11/18/21 15:10 11:43 WBC RDW Seg Neuts % (Manual) Lymphocytes % (Manual) Seg Neutrophils # Man Lymphocytes # (Manual) ABG pH ABG pO2 42.0 L ABG HCO3 38.1 H ABG O2 Saturation 80.5 L ABG Base Excess 10.5 H ABG Hemoglobin 13.9 L Oxyhemoglobin 78.6 L Sodium Potassium Chloride Carbon Dioxide Glucose POC Glucose 116 H AST NT-Pro-B Natriuret Pep Albumin
--- NOTE | 2021-11-18 14:43 | Progress Note ---
Assessment and Plan (1) Acute respiratory failure with hypoxia and hypercapnia Status: Acute Plan to address problem: Chest x-ray, supplemental oxygen, pulse oximetry, nebulizer therapy, noninvasive positive pressure ventilation as clinically indicated, pulmonary toilet, supportive care. Patient might have underlying COPD Today on 10 L [place] O2 BiPAP as needed Pulmonary following Clinically not stable for discharge (2) Pneumonia with mixed bacteria and COPD exacerbation Status: Acute Plan to address problem: Chest x-ray, supplemental oxygen, pulse oximetry, nebulizer therapy plan, IV antibiotic therapy, (3) CHF (congestive heart failure) Status: Acute Qualifiers: Heart failure type: systolic Heart failure chronicity: acute on chronic Qualified Code(s): I50.23 - Acute on chronic systolic (congestive) heart failure Plan to address problem: CHF protocol: Strict I's/O, monitoring output every shift, daily weight, afterload reduction, blood pressure control, echocardiogram ordered and pending at time of admission, thyroid panel, magnesium level, diuresis with Lasix, cardiology team consulted. (4) SIRS (systemic inflammatory response syndrome) Status: Acute Plan to address problem: CBC, urinalysis, chest x-ray, IV antibiotic therapy, supportive care. Repeat CBC in AM. (5) Obesity hypoventilation syndrome Status: Acute Plan to address problem: Balanced diet, increase physical activity discharge, outpatient bariatric surgery evaluation. (6) Hypertension Status: Acute Qualifiers: Hypertension type: primary hypertension Qualified Code(s): I10 - Essential (primary) hypertension Plan to address problem: Monitor blood pressure every shift, continue medical management. (7) Diabetes Status: Acute Plan to address problem: Consistent carbohydrate diet, Accu-Chek, insulin protocol, hypoglycemia protocol. (8) Metabolic syndrome Status: Acute Plan to address problem: Risk factor reduction, balanced diet, weight reduction, blood glucose control, (9) Vascular dementia Status: Acute Qualifiers: Dementia behavioral disturbance: without behavioral disturbance Qualified Code(s): F01.50 - Vascular dementia without behavioral disturbance Plan to address problem: Verbal prompting, verbal redirection, benzodiazepine therapy as clinically indicated. (10) Cerebral atherosclerosis Status: Acute Plan to address problem: Antiplatelet therapy as clinically indicated, supportive care. (11) DVT prophylaxis Status: Acute Plan to address problem: SCD to bilateral lower extremities while in bed (12) Advance care planning Status: Acute Plan to address problem: Disease education data, care plan discussed, diagnoses discussed, prognosis discussed, patient is full code. Patient knowledges understanding and agreement with care plan, +30 minutes. (13) Preventative health care Status: Acute Plan to address problem: Patient counseled regarding risk factor reduction, meal planning, weight reduction, outpatient follow-up with primary care physician for all age and risk factor appropriate screening test. +30 minutes. Subjective Date of service: 11/18/21 Principal diagnosis: Acute respiratory failure, obesity hypoventilation syndrome Objective - Constitutional Vitals: Vital Signs - 12hr 11/18/21 11/18/21 11/18/21 05:35 08:05 10:24 Temperature 98.0 F Pulse Rate 52 L 61 Respiratory 16 22 Rate Blood Pressure 144/70 O2 Sat by Pulse 87 96 Oximetry 11/18/21 11:43 Temperature 98.0 F Pulse Rate 73 Respiratory 18 Rate Blood Pressure 136/60 O2 Sat by Pulse 98 Oximetry - Labs CBC & Chem 7: 11/17/21 08:28 11/18/21 14:36 Labs: Abnormal lab results 11/17/21 11/18/21 Range/Units 15:10 11:43 ABG pO2 42.0 L (80.0-90.0) mm Hg ABG HCO3 38.1 H (20.0-26.0) mmol/L ABG O2 Saturation 80.5 L (95.0-99.0) % ABG Base Excess 10.5 H (-2.0-3.0) mmol/L ABG Hemoglobin 13.9 L (14.0-18.0) gm/dl Oxyhemoglobin 78.6 L (95.0-99.0) % POC Glucose 116 H (70-105) mg/dL HEART Score - HEART Score Troponin: Troponin T < 0.010 ng/mL (0.00-0.029) 11/16/21 19:31
[2021-11-18 16:34] LABS: BUN/Creatinine Ratio 24; Blood Urea Nitrogen 19 mg/dL (9-20); Calcium 8.3 mg/dL (8.4-10.2); Hemolysis Index 14
[2021-11-18] MEDS: ARFORMOTEROL 15 MCG/2 ML NEBU IH SCH (20:59)
[2021-11-18] MEDS: BUDESONIDE 0.5 MG/2 ML NEBU IH SCH (20:59)
[2021-11-19] MEDS: VERAPAMIL 80 MG TAB PO SCH ×3 (05:45→21:53)
[2021-11-19] MEDS: BUDESONIDE 0.5 MG/2 ML NEBU IH SCH ×2 (08:51→21:23)
[2021-11-19] MEDS: ARFORMOTEROL 15 MCG/2 ML NEBU IH SCH ×2 (08:51→21:23)
[2021-11-19] MEDS: FUROSEMIDE 40 MG TAB PO SCH (10:31)
[2021-11-19] MEDS: ASPIRIN EC 81 MG TAB PO SCH (10:31)
[2021-11-19] MEDS: busPIRone 10 MG TAB PO SCH ×2 (10:31→21:53)
[2021-11-19] MEDS: hydroCHLOROthiazide 25 MG TAB PO SCH (10:31)
[2021-11-19] MEDS: levoFLOXacin 750 MG TAB PO SCH (10:31)
--- NOTE | 2021-11-19 11:11 | Progress Note ---
Assessment and Plan 76 y/o male with obesity hypoventilation syndrome and acute respiratory failure likely from volume overload but could have component of COPD as well given smoking history. 11/19/21: Continue supplemental O2, will need walk test prior to discharge. Bipap has been tried and failed in this patient, this is the reason I am seeking help from [facility] to prevent recurrent hospitalizations. 1. May need to consider putting back on IV lasix 2. Will add BID Pulmicort and Brovana therapy 3. Hold on IV steroids unless oxygen requirement continues to increase 4. Patient is willing to use NIV at home. Spoke with CM. Will reach out to [facility] [place] [facility]. Will also need home O2 based on room air ABG. 5. Patient requires volume ventilation and all other therapies including bipap have been considered and ruled out due to the severity of the disease state and life threatening conditions including CO2 retention. Due to increased probability of acute exacerbation, patient requires mouthpiece ventilation to be used during the day as needed in addition to QHS usage with facemask. Patient suffers from chronic respiratory failure secondary to Obesity Hypoventilation syndrome and likely COPD given his smoking history. Subjective Date of service: 11/19/21 Principal diagnosis: Acute respiratory failure, obesity hypoventilation syndrome Interval history: No acute events. Now on 4 liters NC. Objective Vital Signs - 12hr 11/18/21 11/19/21 11/19/21 23:37 00:56 04:40 Temperature 97.9 F 97.7 F Pulse Rate 76 84 78 Pulse Rate [ Throughout] Respiratory 16 20 16 Rate Respiratory Rate [ Throughout] Blood Pressure 128/68 133/59 Blood Pressure [Right] O2 Sat by Pulse 95 97 91 Oximetry 11/19/21 11/19/21 11/19/21 04:50 07:50 08:51 Temperature 98.2 F Pulse Rate 75 Pulse Rate [ 82 Throughout] Respiratory 16 Rate Respiratory 20 Rate [ Throughout] Blood Pressure Blood Pressure 123/63 [Right] O2 Sat by Pulse 90 89 Oximetry 11/19/21 08:56 Temperature Pulse Rate Pulse Rate [ Throughout] Respiratory Rate Respiratory Rate [ Throughout] Blood Pressure Blood Pressure [Right] O2 Sat by Pulse 95 Oximetry Constitutional: alert, other (obese) Eyes: non-icteric ENT: oropharynx moist Neck: supple Effort: mildly labored Ascultation: Bilateral: rales Percussion: Bilateral: not dull Tactile fremitus: Bilateral: normal Cardiovascular: regular rate and rhythm Gastrointestinal: normoactive bowel sounds Extremities: edema, anasarca Neurologic: normal mental status, non-focal exam CBC and BMP: 11/17/21 08:28 11/18/21 14:36 ABG, PT/INR, D-dimer: ABG ABG pH 7.390 pH Units (7.350-7.450) 11/17/21 15:10 ABG pCO2 64.4 mm Hg 11/17/21 15:10 ABG pO2 42.0 mm Hg (80.0-90.0) L 11/17/21 15:10 ABG O2 Saturation 80.5 % (95.0-99.0) L 11/17/21 15:10 PT/INR, D-dimer PT 13.6 Sec. (12.2-14.9) 11/16/21 15:30 INR 0.92 (0.87-1.13) 11/16/21 15:30 Abnormal lab findings: Abnormal Labs 11/16/21 11/16/21 11/16/21 14:40 15:30 15:30 WBC 15.7 H RDW 16.4 H Seg Neuts % (Manual) 82.0 H Lymphocytes % (Manual) 12.0 L Seg Neutrophils # Man 12.9 H Lymphocytes # (Manual) ABG pH 7.200 L ABG pO2 69.5 L ABG HCO3 36.4 H ABG O2 Saturation 90.0 L ABG Base Excess 5.2 H ABG Hemoglobin 13.1 L Oxyhemoglobin 87.9 L Sodium 133 L Potassium 5.1 H Chloride 92.1 L Carbon Dioxide 32 H Glucose 126 H POC Glucose Calcium AST 54 H NT-Pro-B Natriuret Pep Albumin 3.5 L 11/16/21 11/17/21 11/17/21 15:30 08:28 08:28 WBC 14.9 H RDW 16.2 H Seg Neuts % (Manual) 88.0 H Lymphocytes % (Manual) 6.0 L Seg Neutrophils # Man 13.1 H Lymphocytes # (Manual) 0.9 L ABG pH ABG pO2 ABG HCO3 ABG O2 Saturation ABG Base Excess ABG Hemoglobin Oxyhemoglobin Sodium 133 L Potassium Chloride 93.0 L Carbon Dioxide 38 H Glucose 113 H POC Glucose Calcium AST NT-Pro-B Natriuret Pep 3063 H Albumin 11/17/21 11/18/21 11/18/21 15:10 11:43 14:36 WBC RDW Seg Neuts % (Manual) Lymphocytes % (Manual) Seg Neutrophils # Man Lymphocytes # (Manual) ABG pH ABG pO2 42.0 L ABG HCO3 38.1 H ABG O2 Saturation 80.5 L ABG Base Excess 10.5 H ABG Hemoglobin 13.9 L Oxyhemoglobin 78.6 L Sodium 135 L Potassium Chloride 85.9 L Carbon Dioxide 40 H Glucose 115 H POC Glucose 116 H Calcium 8.3 L AST NT-Pro-B Natriuret Pep Albumin 11/18/21 14:54 WBC RDW Seg Neuts % (Manual) Lymphocytes % (Manual) Seg Neutrophils # Man Lymphocytes # (Manual) ABG pH ABG pO2 ABG HCO3 ABG O2 Saturation ABG Base Excess ABG Hemoglobin Oxyhemoglobin Sodium Potassium Chloride Carbon Dioxide Glucose POC Glucose 145 H Calcium AST NT-Pro-B Natriuret Pep Albumin
[2021-11-19 17:25] LABS: BUN/Creatinine Ratio 17; Blood Urea Nitrogen 15 mg/dL (9-20); Calcium 8.5 mg/dL (8.4-10.2); Hemolysis Index 106
--- NOTE | 2021-11-19 23:51 | Progress Note ---
Assessment and Plan (1) Acute on possibly chronic respiratory failure with hypoxia and hypercapnia Status: Acute Plan to address problem: Chest x-ray, supplemental oxygen, pulse oximetry, nebulizer therapy, noninvasive positive pressure ventilation as clinically indicated, pulmonary toilet, supportive care. Patient might have underlying COPD Today on 10 L salter O2 BiPAP as needed Pulmonary following Clinically not stable for discharge (2) Pneumonia with mixed bacteria and COPD exacerbation Status: Acute Plan to address problem: Chest x-ray, supplemental oxygen, pulse oximetry, nebulizer therapy plan, IV antibiotic therapy, (3) CHF (congestive heart failure) with preserved EF Status: Acute Qualifiers: Heart failure type: systolic Heart failure chronicity: acute on chronic Qualified Code(s): I50.23 - Acute on chronic systolic (congestive) heart failure Plan to address problem: CHF protocol: Strict I's/O, monitoring output every shift, daily weight, after load reduction, blood pressure control, echocardiogram ordered and pending at time of admission, thyroid panel, magnesium level, diuresis with Lasix, cardiology team consulted. (4) SIRS (systemic inflammatory response syndrome) Status: Acute Plan to address problem: CBC, urinalysis, chest x-ray, IV antibiotic therapy, supportive care. Repeat CBC in AM. (5) Obesity hypoventilation syndrome Status: Acute Plan to address problem: Balanced diet, increase physical activity discharge, outpatient bariatric surgery evaluation. (6) Hypertension Status: Acute Qualifiers: Hypertension type: primary hypertension Qualified Code(s): I10 - Essential (primary) hypertension Plan to address problem: Monitor blood pressure every shift, continue medical management. (7) Diabetes Status: Acute Plan to address problem: Consistent carbohydrate diet, Accu-Chek, insulin protocol, hypoglycemia protocol. (8) Metabolic syndrome Status: Acute Plan to address problem: Risk factor reduction, balanced diet, weight reduction, blood glucose control, (9) Vascular dementia Status: Acute Qualifiers: Dementia behavioral disturbance: without behavioral disturbance Qualified Code(s): F01.50 - Vascular dementia without behavioral disturbance Plan to address problem: Verbal prompting, verbal redirection, benzodiazepine therapy as clinically indicated. (10) Cerebral atherosclerosis Status: Acute Plan to address problem: Antiplatelet therapy as clinically indicated, supportive care. (11) DVT prophylaxis Status: Acute Plan to address problem: SCD to bilateral lower extremities while in bed (12) Advance care planning Status: Acute Plan to address problem: Disease education data, care plan discussed, diagnoses discussed, prognosis discussed, patient is full code. Patient knowledges understanding and agreement with care plan, +30 minutes. (13) Preventative health care Status: Acute Plan to address problem: Patient counseled regarding risk factor reduction, meal planning, weight reduction, outpatient follow-up with primary care physician for all age and risk factor appropriate screening test. +30 minutes. Subjective Date of service: 11/19/21 Principal diagnosis: Acute respiratory failure, obesity hypoventilation syndrome Objective - Constitutional Vitals: Vital Signs - 12hr 11/19/21 11/19/21 11/19/21 14:53 16:09 19:32 Temperature 98.0 F 98.1 F Pulse Rate 79 88 Pulse Rate [ Throughout] Respiratory 19 18 Rate Respiratory Rate [ Throughout] Blood Pressure 137/108 132/48 157/62 O2 Sat by Pulse 86 91 Oximetry 11/19/21 11/19/21 11/19/21 21:26 21:28 21:53 Temperature Pulse Rate 88 Pulse Rate [ 79 Throughout] Respiratory Rate Respiratory 20 Rate [ Throughout] Blood Pressure 157/62 O2 Sat by Pulse 91 91 Oximetry - Labs CBC & Chem 7: 11/17/21 08:28 11/19/21 16:31 Labs: Abnormal lab results 11/19/21 Range/Units 16:31 Sodium 135 L (137-145) mmol/L Chloride 88.1 L (98-107) mmol/L Carbon Dioxide 38 H (22-30) mmol/L Glucose 150 H (75-100) mg/dL HEART Score - HEART Score Troponin: Troponin T < 0.010 ng/mL (0.00-0.029) 11/16/21 19:31
[2021-11-20] MEDS: VERAPAMIL 80 MG TAB PO SCH ×3 (05:25→21:00)
[2021-11-20] MEDS: BUDESONIDE 0.5 MG/2 ML NEBU IH SCH ×2 (08:57→21:43)
[2021-11-20] MEDS: ARFORMOTEROL 15 MCG/2 ML NEBU IH SCH ×2 (08:57→21:43)
[2021-11-20] MEDS: hydroCHLOROthiazide 25 MG TAB PO SCH (10:42)
[2021-11-20] MEDS: busPIRone 10 MG TAB PO SCH ×2 (10:42→21:01)
[2021-11-20] MEDS: levoFLOXacin 750 MG TAB PO SCH (10:42)
[2021-11-20] MEDS: ASPIRIN EC 81 MG TAB PO SCH (10:42)
[2021-11-20] MEDS: FUROSEMIDE 40 MG TAB PO SCH (10:42)
--- NOTE | 2021-11-20 12:51 | Progress Note ---
Assessment and Plan (1) Acute on possibly chronic respiratory failure with hypoxia and hypercapnia Status: Acute Plan to address problem: Chest x-ray, supplemental oxygen, pulse oximetry, nebulizer therapy, noninvasive positive pressure ventilation as clinically indicated, pulmonary toilet, supportive care. Patient might have underlying COPD Today on 10 L sal[place] O2 BiPAP as needed Pulmonary following Clinically not stable for discharge (2) Pneumonia with mixed bacteria and COPD exacerbation Status: Acute Plan to address problem: Chest x-ray, supplemental oxygen, pulse oximetry, nebulizer therapy plan, IV antibiotic therapy, (3) CHF (congestive heart failure) with preserved EF Status: Acute Qualifiers: Heart failure type: systolic Heart failure chronicity: acute on chronic Qualified Code(s): I50.23 - Acute on chronic systolic (congestive) heart failure Plan to address problem: CHF protocol: Strict I's/O, monitoring output every shift, daily weight, after load reduction, blood pressure control, echocardiogram ordered and pending at time of admission, thyroid panel, magnesium level, diuresis with Lasix, cardiology team consulted. (4) SIRS (systemic inflammatory response syndrome) Status: Acute Plan to address problem: CBC, urinalysis, chest x-ray, IV antibiotic therapy, supportive care. Repeat CBC in AM. (5) Obesity hypoventilation syndrome Status: Acute Plan to address problem: Balanced diet, increase physical activity discharge, outpatient bariatric surgery evaluation. (6) Hypertension Status: Acute Qualifiers: Hypertension type: primary hypertension Qualified Code(s): I10 - Essential (primary) hypertension Plan to address problem: Monitor blood pressure every shift, continue medical management. (7) Diabetes Status: Acute Plan to address problem: Consistent carbohydrate diet, Accu-Chek, insulin protocol, hypoglycemia protocol. (8) Metabolic syndrome Status: Acute Plan to address problem: Risk factor reduction, balanced diet, weight reduction, blood glucose control, (9) Vascular dementia Status: Acute Qualifiers: Dementia behavioral disturbance: without behavioral disturbance Qualified Code(s): F01.50 - Vascular dementia without behavioral disturbance Plan to address problem: Verbal prompting, verbal redirection, benzodiazepine therapy as clinically indicated. (10) Cerebral atherosclerosis Status: Acute Plan to address problem: Antiplatelet therapy as clinically indicated, supportive care. (11) DVT prophylaxis Status: Acute Plan to address problem: SCD to bilateral lower extremities while in bed (12) Advance care planning Status: Acute Plan to address problem: Disease education data, care plan discussed, diagnoses discussed, prognosis discussed, patient is full code. Patient knowledges understanding and agreement with care plan, +30 minutes. (13) Preventative health care Status: Acute Plan to address problem: Patient counseled regarding risk factor reduction, meal planning, weight reduction, outpatient follow-up with primary care physician for all age and risk factor appropriate screening test. +30 minutes. Subjective Date of service: 11/20/21 Principal diagnosis: Acute respiratory failure, obesity hypoventilation syndrome Objective - Constitutional Vitals: Vital Signs - 12hr 11/20/21 11/20/21 11/20/21 03:56 05:25 08:36 Temperature 97.7 F 98.0 F Pulse Rate 78 88 86 Pulse Rate [ Anterior Bilateral Throughout] Respiratory 22 18 Rate Respiratory Rate [Anterior Bilateral Throughout] Blood Pressure 134/58 134/58 122/50 O2 Sat by Pulse 90 92 Oximetry 11/20/21 11/20/21 08:57 10:00 Temperature Pulse Rate Pulse Rate [ 91 H Anterior Bilateral Throughout] Respiratory Rate Respiratory 18 Rate [Anterior Bilateral Throughout] Blood Pressure O2 Sat by Pulse 95 Oximetry - Labs CBC & Chem 7: 11/17/21 08:28 11/19/21 16:31 Labs: Abnormal lab results 11/19/21 Range/Units 16:31 Sodium 135 L (137-145) mmol/L Chloride 88.1 L (98-107) mmol/L Carbon Dioxide 38 H (22-30) mmol/L Glucose 150 H (75-100) mg/dL HEART Score - HEART Score Troponin: Troponin T < 0.010 ng/mL (0.00-0.029) 11/16/21 19:31
--- NOTE | 2021-11-20 14:04 | Progress Note ---
Assessment and Plan 76 y/o male with obesity hypoventilation syndrome and acute respiratory failure likely from volume overload but could have component of COPD as well given smoking history. 11/20/21: Continue scheduled nebs. NIV therapy at night and PRN during the day. Weight loss. Will need full PFT and outpatient PSG at discharge 11/19/21: Continue supplemental O2, will need walk test prior to discharge. Bipap has been tried and failed in this patient, this is the reason I am seeking help from [facility] to prevent recurrent hospitalizations. 1. May need to consider putting back on IV lasix 2. Will add BID Pulmicort and Brovana therapy 3. Hold on IV steroids unless oxygen requirement continues to increase 4. Patient is willing to use NIV at home. Spoke with CM. Will reach out to [facility]. Will also need home O2 based on room air ABG. 5. Patient requires volume ventilation and all other therapies including bipap have been considered and ruled out due to the severity of the disease state and life threatening conditions including CO2 retention. Due to increased probability of acute exacerbation, patient requires mouthpiece ventilation to be used during the day as needed in addition to QHS usage with facemask. Patient suffers from chronic respiratory failure secondary to Obesity Hypoventilation syndrome and likely COPD given his smoking history. Subjective Date of service: 11/20/21 Principal diagnosis: Acute respiratory failure, obesity hypoventilation syndrome Interval history: No acute events. On 3 liters. No new documentation in regards to NIV therapy from Objective Vital Signs - 12hr 11/20/21 11/20/21 11/20/21 03:56 05:25 08:36 Temperature 97.7 F 98.0 F Pulse Rate 78 88 86 Pulse Rate [ Anterior Bilateral Throughout] Respiratory 22 18 Rate Respiratory Rate [Anterior Bilateral Throughout] Blood Pressure 134/58 134/58 122/50 O2 Sat by Pulse 90 92 Oximetry 11/20/21 11/20/21 08:57 10:00 Temperature Pulse Rate Pulse Rate [ 91 H Anterior Bilateral Throughout] Respiratory Rate Respiratory 18 Rate [Anterior Bilateral Throughout] Blood Pressure O2 Sat by Pulse 95 Oximetry Constitutional: alert, other (obese) Eyes: non-icteric ENT: oropharynx moist Neck: supple Effort: mildly labored Ascultation: Bilateral: rales Percussion: Bilateral: not dull Tactile fremitus: Bilateral: normal Cardiovascular: regular rate and rhythm Gastrointestinal: normoactive bowel sounds Extremities: edema, anasarca Neurologic: normal mental status, non-focal exam CBC and BMP: 11/17/21 08:28 11/19/21 16:31 ABG, PT/INR, D-dimer: ABG ABG pH 7.390 pH Units (7.350-7.450) 11/17/21 15:10 ABG pCO2 64.4 mm Hg 11/17/21 15:10 ABG pO2 42.0 mm Hg (80.0-90.0) L 11/17/21 15:10 ABG O2 Saturation 80.5 % (95.0-99.0) L 11/17/21 15:10 PT/INR, D-dimer PT 13.6 Sec. (12.2-14.9) 11/16/21 15:30 INR 0.92 (0.87-1.13) 11/16/21 15:30 Abnormal lab findings: Abnormal Labs 11/16/21 11/16/21 11/16/21 14:40 15:30 15:30 WBC 15.7 H RDW 16.4 H Seg Neuts % (Manual) 82.0 H Lymphocytes % (Manual) 12.0 L Seg Neutrophils # Man 12.9 H Lymphocytes # (Manual) ABG pH 7.200 L ABG pO2 69.5 L ABG HCO3 36.4 H ABG O2 Saturation 90.0 L ABG Base Excess 5.2 H ABG Hemoglobin 13.1 L Oxyhemoglobin 87.9 L Sodium 133 L Potassium 5.1 H Chloride 92.1 L Carbon Dioxide 32 H Glucose 126 H POC Glucose Calcium AST 54 H NT-Pro-B Natriuret Pep Albumin 3.5 L 11/16/21 11/17/21 11/17/21 15:30 08:28 08:28 WBC 14.9 H RDW 16.2 H Seg Neuts % (Manual) 88.0 H Lymphocytes % (Manual) 6.0 L Seg Neutrophils # Man 13.1 H Lymphocytes # (Manual) 0.9 L ABG pH ABG pO2 ABG HCO3 ABG O2 Saturation ABG Base Excess ABG Hemoglobin Oxyhemoglobin Sodium 133 L Potassium Chloride 93.0 L Carbon Dioxide 38 H Glucose 113 H POC Glucose Calcium AST NT-Pro-B Natriuret Pep 3063 H Albumin 11/17/21 11/18/21 11/18/21 15:10 11:43 14:36 WBC RDW Seg Neuts % (Manual) Lymphocytes % (Manual) Seg Neutrophils # Man Lymphocytes # (Manual) ABG pH ABG pO2 42.0 L ABG HCO3 38.1 H ABG O2 Saturation 80.5 L ABG Base Excess 10.5 H ABG Hemoglobin 13.9 L Oxyhemoglobin 78.6 L Sodium 135 L Potassium Chloride 85.9 L Carbon Dioxide 40 H Glucose 115 H POC Glucose 116 H Calcium 8.3 L AST NT-Pro-B Natriuret Pep Albumin 11/18/21 11/19/21 14:54 16:31 WBC RDW Seg Neuts % (Manual) Lymphocytes % (Manual) Seg Neutrophils # Man Lymphocytes # (Manual) ABG pH ABG pO2 ABG HCO3 ABG O2 Saturation ABG Base Excess ABG Hemoglobin Oxyhemoglobin Sodium 135 L Potassium Chloride 88.1 L Carbon Dioxide 38 H Glucose 150 H POC Glucose 145 H Calcium AST NT-Pro-B Natriuret Pep Albumin
[2021-11-20] MEDS ORDERED: ZOLPIDEM 5 MG TAB PO PRN (14:09)
[2021-11-20] MEDS ORDERED: NON-FORMULARY EACH (Buspirone Hcl [Buspirone] 15 MG Tablet) PO SCH (20:00)
[2021-11-21] MEDS ORDERED: ADENOSINE 6 MG/2 ML INJ ONE ×3 (03:00→13:21)
[2021-11-21] MEDS ORDERED: ADENOSINE 6 MG/2 ML INJ IV ONE ×3 (03:29→03:30)
[2021-11-21] MEDS ORDERED: dilTIAZem/NaCl 125 MG/125 ML BAG IV ONE (03:37)
--- NOTE | 2021-11-21 03:46 | Event Note ---
Date: 11/21/21 Code met called on patient who went into SVT . He was tried on Vasalva [place] and also given multiple rounds of adenosine- 6mg, 12mg and 12mg without any improvement. He is transferred into ICU for close monitoring. Patient will be started on cardizem drip. Cardiology following.
[2021-11-21] MEDS ORDERED: dilTIAZem/NaCl 125 MG/125 ML BAG IV SCH (04:00)
[2021-11-21] MEDS: VERAPAMIL 80 MG TAB PO SCH ×3 (05:42→22:13)
[2021-11-21] MEDS: ARFORMOTEROL 15 MCG/2 ML NEBU IH SCH ×2 (08:28→21:58)
[2021-11-21] MEDS: BUDESONIDE 0.5 MG/2 ML NEBU IH SCH ×2 (08:28→21:58)
[2021-11-21] MEDS: levoFLOXacin 750 MG TAB PO SCH (09:35)
[2021-11-21] MEDS: hydroCHLOROthiazide 25 MG TAB PO SCH (09:35)
[2021-11-21] MEDS: FUROSEMIDE 40 MG TAB PO SCH (09:35)
[2021-11-21] MEDS: ASPIRIN EC 81 MG TAB PO SCH (09:36)
--- NOTE | 2021-11-21 09:48 | Progress Note ---
Assessment and Plan - Patient Problems (1) Acute heart failure with preserved ejection fraction (HFpEF) Current Visit: Yes Status: Acute (2) Acute respiratory failure with hypoxia and hypercapnia Current Visit: Yes Status: Acute (3) Opacities of both lungs present on chest x-ray Current Visit: Yes Status: Acute (4) Diabetes Current Visit: No Status: Acute (5) Hypertension Current Visit: No Status: Acute Qualifiers: Hypertension type: primary hypertension Qualified Code(s): I10 - Essential (primary) hypertension (6) Obesity hypoventilation syndrome Current Visit: Yes Status: Chronic (7) Vascular dementia Current Visit: No Status: Acute Qualifiers: Dementia behavioral disturbance: without behavioral disturbance Qualified Code(s): F01.50 - Vascular dementia without behavioral disturbance Subjective Date of service: 11/21/21 Principal diagnosis: Acute respiratory failure, obesity hypoventilation syndrome Interval history: Patient has seen by Dr. Ellsworth. Not seeing the patient. Dr. Ellsworth continue follow. Objective Vital Signs - 12hr 11/20/21 11/20/21 11/20/21 22:00 22:26 23:27 Temperature 98.0 F Pulse Rate 101 H Pulse Rate [ Anterior Bilateral Throughout] Pulse Rate [ From Monitor] Respiratory 22 Rate Respiratory Rate [Anterior Bilateral Throughout] Blood Pressure 158/91 Blood Pressure [Right] O2 Sat by Pulse 92 91 87 Oximetry 11/21/21 11/21/21 11/21/21 03:00 03:06 03:28 Temperature Pulse Rate 179 H 127 H 152 H Pulse Rate [ Anterior Bilateral Throughout] Pulse Rate [ From Monitor] Respiratory 19 Rate Respiratory Rate [Anterior Bilateral Throughout] Blood Pressure Blood Pressure 131/70 152/97 [Right] O2 Sat by Pulse 90 92 Oximetry 11/21/21 11/21/21 11/21/21 03:30 03:40 03:50 Temperature Pulse Rate 148 H 130 H 90 Pulse Rate [ Anterior Bilateral Throughout] Pulse Rate [ From Monitor] Respiratory 17 37 H 23 Rate Respiratory Rate [Anterior Bilateral Throughout] Blood Pressure 113/64 113/64 126/69 Blood Pressure [Right] O2 Sat by Pulse 88 91 92 Oximetry 11/21/21 11/21/21 11/21/21 04:00 04:10 04:20 Temperature 98.6 F Pulse Rate 87 85 88 Pulse Rate [ Anterior Bilateral Throughout] Pulse Rate [ 148 H From Monitor] Respiratory 20 24 23 Rate Respiratory Rate [Anterior Bilateral Throughout] Blood Pressure 125/65 125/65 125/62 Blood Pressure [Right] O2 Sat by Pulse 92 97 97 Oximetry 11/21/21 11/21/21 11/21/21 04:30 04:41 04:51 Temperature Pulse Rate 89 85 83 Pulse Rate [ Anterior Bilateral Throughout] Pulse Rate [ From Monitor] Respiratory 23 23 20 Rate Respiratory Rate [Anterior Bilateral Throughout] Blood Pressure 119/59 125/62 111/59 Blood Pressure [Right] O2 Sat by Pulse 96 96 97 Oximetry 11/21/21 11/21/21 11/21/21 05:00 05:11 05:21 Temperature Pulse Rate 87 83 93 H Pulse Rate [ Anterior Bilateral Throughout] Pulse Rate [ From Monitor] Respiratory 22 25 H 24 Rate Respiratory Rate [Anterior Bilateral Throughout] Blood Pressure 127/58 127/58 127/65 Blood Pressure [Right] O2 Sat by Pulse 97 97 88 Oximetry 11/21/21 11/21/21 11/21/21 05:30 05:41 05:42 Temperature Pulse Rate 81 78 78 Pulse Rate [ Anterior Bilateral Throughout] Pulse Rate [ From Monitor] Respiratory 26 H 22 Rate Respiratory Rate [Anterior Bilateral Throughout] Blood Pressure 110/48 110/48 110/48 Blood Pressure [Right] O2 Sat by Pulse 94 95 Oximetry 11/21/21 11/21/21 11/21/21 05:51 06:00 06:11 Temperature Pulse Rate 72 74 74 Pulse Rate [ Anterior Bilateral Throughout] Pulse Rate [ From Monitor] Respiratory 22 22 23 Rate Respiratory Rate [Anterior Bilateral Throughout] Blood Pressure 111/49 110/48 110/48 Blood Pressure [Right] O2 Sat by Pulse 95 96 96 Oximetry 11/21/21 11/21/21 11/21/21 06:21 06:30 06:41 Temperature Pulse Rate 72 72 71 Pulse Rate [ Anterior Bilateral Throughout] Pulse Rate [ From Monitor] Respiratory 21 23 26 H Rate Respiratory Rate [Anterior Bilateral Throughout] Blood Pressure 116/54 98/45 98/45 Blood Pressure [Right] O2 Sat by Pulse 94 100 86 Oximetry 11/21/21 11/21/21 11/21/21 06:51 07:00 07:11 Temperature Pulse Rate 75 66 65 Pulse Rate [ Anterior Bilateral Throughout] Pulse Rate [ From Monitor] Respiratory 24 24 27 H Rate Respiratory Rate [Anterior Bilateral Throughout] Blood Pressure 109/35 111/34 111/34 Blood Pressure [Right] O2 Sat by Pulse 80 L 92 96 Oximetry 11/21/21 11/21/21 11/21/21 07:21 07:31 07:34 Temperature 98.5 F Pulse Rate 79 93 H Pulse Rate [ Anterior Bilateral Throughout] Pulse Rate [ 75 From Monitor] Respiratory 16 15 28 H Rate Respiratory Rate [Anterior Bilateral Throughout] Blood Pressure 125/60 125/60 Blood Pressure [Right] O2 Sat by Pulse 96 91 93 Oximetry 11/21/21 11/21/21 11/21/21 07:41 07:51 08:00 Temperature Pulse Rate 69 66 67 Pulse Rate [ Anterior Bilateral Throughout] Pulse Rate [ From Monitor] Respiratory 21 24 20 Rate Respiratory Rate [Anterior Bilateral Throughout] Blood Pressure 125/60 115/55 127/58 Blood Pressure [Right] O2 Sat by Pulse 96 98 98 Oximetry 11/21/21 11/21/21 11/21/21 08:11 08:21 08:30 Temperature Pulse Rate 69 70 81 Pulse Rate [ Anterior Bilateral Throughout] Pulse Rate [ From Monitor] Respiratory 20 21 32 H Rate Respiratory Rate [Anterior Bilateral Throughout] Blood Pressure 127/58 118/62 137/64 Blood Pressure [Right] O2 Sat by Pulse 98 98 95 Oximetry 11/21/21 11/21/21 11/21/21 08:32 08:33 08:36 Temperature Pulse Rate Pulse Rate [ 82 Anterior Bilateral Throughout] Pulse Rate [ From Monitor] Respiratory Rate Respiratory 24 Rate [Anterior Bilateral Throughout] Blood Pressure Blood Pressure [Right] O2 Sat by Pulse 98 99 Oximetry 11/21/21 11/21/21 11/21/21 08:41 08:51 09:00 Temperature Pulse Rate 72 75 74 Pulse Rate [ Anterior Bilateral Throughout] Pulse Rate [ From Monitor] Respiratory 18 27 H 27 H Rate Respiratory Rate [Anterior Bilateral Throughout] Blood Pressure 137/64 129/59 125/52 Blood Pressure [Right] O2 Sat by Pulse 100 99 97 Oximetry 11/21/21 09:11 Temperature Pulse Rate 86 Pulse Rate [ Anterior Bilateral Throughout] Pulse Rate [ From Monitor] Respiratory 14 Rate Respiratory Rate [Anterior Bilateral Throughout] Blood Pressure 125/52 Blood Pressure [Right] O2 Sat by Pulse 93 Oximetry Cardiovascular: regular rate and rhythm Gastrointestinal: normoactive bowel sounds CBC and BMP: 11/21/21 08:20 11/21/21 08:20 ABG, PT/INR, D-dimer: ABG ABG pH 7.390 pH Units (7.350-7.450) 11/17/21 15:10 ABG pCO2 64.4 mm Hg 11/17/21 15:10 ABG pO2 42.0 mm Hg (80.0-90.0) L 11/17/21 15:10 ABG O2 Saturation 80.5 % (95.0-99.0) L 11/17/21 15:10 PT/INR, D-dimer PT 13.6 Sec. (12.2-14.9) 11/16/21 15:30 INR 0.92 (0.87-1.13) 11/16/21 15:30 Abnormal lab findings: Abnormal Labs 11/16/21 11/16/21 11/16/21 14:40 15:30 15:30 WBC 15.7 H RDW 16.4 H Seg Neuts % (Manual) 82.0 H Lymphocytes % (Manual) 12.0 L Seg Neutrophils # Man 12.9 H Lymphocytes # (Manual) ABG pH 7.200 L ABG pO2 69.5 L ABG HCO3 36.4 H ABG O2 Saturation 90.0 L ABG Base Excess 5.2 H ABG Hemoglobin 13.1 L Oxyhemoglobin 87.9 L Sodium 133 L Potassium 5.1 H Chloride 92.1 L Carbon Dioxide 32 H Glucose 126 H POC Glucose Calcium AST 54 H NT-Pro-B Natriuret Pep Albumin 3.5 L 11/16/21 11/17/21 11/17/21 15:30 08:28 08:28 WBC 14.9 H RDW 16.2 H Seg Neuts % (Manual) 88.0 H Lymphocytes % (Manual) 6.0 L Seg Neutrophils # Man 13.1 H Lymphocytes # (Manual) 0.9 L ABG pH ABG pO2 ABG HCO3 ABG O2 Saturation ABG Base Excess ABG Hemoglobin Oxyhemoglobin Sodium 133 L Potassium Chloride 93.0 L Carbon Dioxide 38 H Glucose 113 H POC Glucose Calcium AST NT-Pro-B Natriuret Pep 3063 H Albumin 11/17/21 11/18/21 11/18/21 15:10 11:43 14:36 WBC RDW Seg Neuts % (Manual) Lymphocytes % (Manual) Seg Neutrophils # Man Lymphocytes # (Manual) ABG pH ABG pO2 42.0 L ABG HCO3 38.1 H ABG O2 Saturation 80.5 L ABG Base Excess 10.5 H ABG Hemoglobin 13.9 L Oxyhemoglobin 78.6 L Sodium 135 L Potassium Chloride 85.9 L Carbon Dioxide 40 H Glucose 115 H POC Glucose 116 H Calcium 8.3 L AST NT-Pro-B Natriuret Pep Albumin 11/18/21 11/19/21 11/21/21 14:54 16:31 02:57 WBC RDW Seg Neuts % (Manual) Lymphocytes % (Manual) Seg Neutrophils # Man Lymphocytes # (Manual) ABG pH ABG pO2 ABG HCO3 ABG O2 Saturation ABG Base Excess ABG Hemoglobin Oxyhemoglobin Sodium 135 L Potassium Chloride 88.1 L Carbon Dioxide 38 H Glucose 150 H POC Glucose 145 H 167 H Calcium AST NT-Pro-B Natriuret Pep Albumin Additional Studies: CHEST 1 VIEW 11/16/2021 2:11 PM INDICATION / CLINICAL INFORMATION: Dyspnea. COMPARISON: 08/24/2012 FINDINGS: SUPPORT DEVICES: None. HEART / MEDIASTINUM: Cardiomediastinal silhouette is upper limits normal in size. LUNGS / PLEURA: Bibasilar opacities with mild interstitial prominence. No pneu mothorax. ADDITIONAL FINDINGS: No significant additional findings. IMPRESSION: 1. Bibasilar opacities, which could represent pneumonia or atelectasis. 2. Mild interstitial prominence suggesting pulmonary edema.
[2021-11-21] MEDS: METOPROLOL TARTRATE 25 MG TAB PO SCH ×2 (10:19→22:15)
--- NOTE | 2021-11-21 10:19 | Progress Note ---
<CORNELIO HIGGINS - Last Filed: 11/21/21 17:22> Assessment and Plan Assessment and plan: This is a 76-year-old male with known past medical history of HTN, DM, morbid obesity, and bipolar disorder initially admitted to the floor for acute hypoxic and hypercapnic respiratory failure. Patient was transferred to the ICU overn [facility] on 11/21 due to SVT, HR in the 170, unresponsive to IV adenosine. ICU Course to Date: 11/21: Patient was placed on cardizem gtt in the ICU. Patient converted to SR, HR in the 70-80s. Cardizem gtt is off this morning, VSS. Low dose BB added, Cardiology reconsulted. Continue PO lasix, stat labs ordered. Wean O2 supplementation as tolerated for SPO2 above 88%, Bipap at night. Pulmonary is also following. If patient remains stable by this afternoon, okay to transfer to [facility]. Assessment and Plan #Supraventricular Tachycardia (SVT) #CHF (Congestive Heart Failure) with Preserved EF #Hypertension - Code met overnight due to SVT, HR in the 170 s/p X3 dose of adenosine with no response - S/p Cardizem gtt, Converted to SR - Low dose BB added. patient remains on ASA, PO lasix, HTZ, and Verapamil - Cardiology reconsulted - Continue blood pressure monitor per protocol - Maintain MAP above 65 - Strict and I&Os and Daily weight - Close monitoring of renal function, stat labs pending #Acute Hypoxic and Hypercapneic Respiratory Failure #Pneumonia with Mixed Bacteria and COPD Exacerbation #Obesity Hypoventilation Syndrome - Currently on 10L [place] - Completed X5days course of IV Antiobiotics - Pulmonary is following - Continue gentle diurese and Nebx treatment per Pulmo - Bipap at night - Continue O2 supplementation and wean as tolerated - Continue SPO2 monitoring for SPO2 goal above 92% - Weight loss and increase physical activity discharge - Follow up with Pulmonary outpatient for PFT and sleep apnea eval #Type 2 Diabetes Mellitus - Consistent carbohydrate diet - BG check and SSI ACHS - Avoid Hypoglycemia - Hypoglycemic protocol #Bipolar Disorder - Continue supportive measures - Home meds resumed #GI/DVT Prophylaxis - PPI- Pepcid - SCD to bilateral lower extremities while in bed #Advance Care Planning - Disease education data, care plan, diagnoses, and prognosis were discussed with the patient at the bedside. Patient is a FULL code. Patient acknowledged understanding and agreed with current care plan. The high probability of a clinically significant, sudden or life threatening deterioration of the [multiple] system(s) required my full and direct attention, intervention and personal management. The aggregate critical care time was [60] minutes. This time is in addition to time spent performing reported procedures but includes the following: [x] Data Review and interpretation [x] Patient assessment and monitoring of vital signs [x] Documentation [x] Medication orders and management Disposition Plan: ICU Total Time Spent with Patient (Minutes): 60 History Interval history: Patient seen and examined at the bedside. Fully AAO, on 10L [place], denied any pain nor any discomfort at this time. Off cardizem gtt and back to SR this morning, HR in the 70-80s, BP stable. Hospitalist Physical - Constitutional Vitals: Temp Pulse Resp BP Pulse Ox 98.5 F 68 26 H 96/39 93 11/21/21 07:34 11/21/21 10:00 11/21/21 10:00 11/21/21 10:00 11/21/21 10:00 General appearance: Present: no acute distress, well-nourished, obese - EENT Eyes: Present: PERRL, EOM intact ENT: hearing intact - Neck Neck: Present: normal ROM - Respiratory Respiratory effort: normal Respiratory: bilateral: diminished - Cardiovascular Rhythm: regular Heart Sounds: Present: S1 & S2 - Extremities Extremities: no ischemia, pulses intact, pulses symmetrical Extremity abnormal: edema, erythema (BLE swelling and discoloration) - Peripheral Assessment Bilateral Lower Extremity Edema Type: Pitting Edema Degree: 3+ Capillary Refill: < 3 seconds Skin Temperature: Warm Generalized Edema Type: Non-pitting Edema Degree: 3+ Capillary Refill: < 3 seconds Skin Temperature: Warm Peripheral Pulses: within normal limits - Abdominal General gastrointestinal: soft, non-distended, normal bowel sounds, other (Obese) - Integumentary Integumentary: Present: warm, dry, erythema (BLE) - Psychiatric Psychiatric: appropriate mood/affect, cooperative - Neurologic Neurologic: CNII-XII intact, moves all extremities - Allied Health Allied health notes reviewed: nursing, case management HEART Score - HEART Score Troponin: Troponin T < 0.010 ng/mL (0.00-0.029) 11/16/21 19:31 Results - Labs CBC & Chem 7: 11/21/21 08:20 11/21/21 08:20 Labs: Laboratory Last Values WBC 14.9 K/mm3 (4.5-11.0) H 11/17/21 08:28 RBC 4.44 M/mm3 (3.65-5.03) 11/17/21 08:28 Hgb 13.4 gm/dl (11.8-15.2) 11/17/21 08:28 Hct 42.0 % (35.5-45.6) 11/17/21 08:28 MCV 94 fl (84-94) 11/17/21 08:28 MCH 30 pg (28-32) 11/17/21 08:28 MCHC 32 % (32-34) 11/17/21 08:28 RDW 16.2 % (13.2-15.2) H 11/17/21 08:28 Plt Count 219 K/mm3 (140-440) 11/17/21 08:28 Add Manual Diff Complete 11/17/21 08:28 Total Counted 100 11/17/21 08:28 Seg Neuts % (Manual) 88.0 % (40.0-70.0) H 11/17/21 08:28 Band Neutrophils % 2.0 % 11/17/21 08:28 Lymphocytes % (Manual) 6.0 % (13.4-35.0) L 11/17/21 08:28 Reactive Lymphs % (Man) 0 % 11/17/21 08:28 Monocytes % (Manual) 4.0 % (0.0-7.3) 11/17/21 08:28 Eosinophils % (Manual) 0 % (0.0-4.3) 11/17/21 08:28 Basophils % (Manual) 0 % (0.0-1.8) 11/17/21 08:28 Metamyelocytes % 0 % 11/17/21 08:28 Myelocytes % 0 % 11/17/21 08:28 Promyelocytes % 0 % 11/17/21 08:28 Blast Cells % 0 % 11/17/21 08:28 Nucleated RBC % Not Reportable 11/17/21 08:28 Seg Neutrophils # Man 13.1 K/mm3 (1.8-7.7) H 11/17/21 08:28 Band Neutrophils # 0.3 K/mm3 11/17/21 08:28 Lymphocytes # (Manual) 0.9 K/mm3 (1.2-5.4) L 11/17/21 08:28 Abs React Lymphs (Man) 0.0 K/mm3 11/17/21 08:28 Monocytes # (Manual) 0.6 K/mm3 (0.0-0.8) 11/17/21 08:28 Eosinophils # (Manual) 0.0 K/mm3 (0.0-0.4) 11/17/21 08:28 Basophils # (Manual) 0.0 K/mm3 (0.0-0.1) 11/17/21 08:28 Metamyelocytes # 0.0 K/mm3 11/17/21 08:28 Myelocytes # 0.0 K/mm3 11/17/21 08:28 Promyelocytes # 0.0 K/mm3 11/17/21 08:28 Blast Cells # 0.0 K/mm3 11/17/21 08:28 WBC Morphology Not Reportable 11/17/21 08:28 Hypersegmented Neuts Not Reportable 11/17/21 08:28 Hyposegmented Neuts Not Reportable 11/17/21 08:28 Hypogranular Neuts Not Reportable 11/17/21 08:28 Smudge Cells Not Reportable 11/17/21 08:28 Toxic Granulation Not Reportable 11/17/21 08:28 Toxic Vacuolation Not Reportable 11/17/21 08:28 Dohle Bodies Not Reportable 11/17/21 08:28 Pelger-Huet Anomaly Not Reportable 11/17/21 08:28 Riya Rods Not Reportable 11/17/21 08:28 Platelet Estimate Consistent w auto 11/17/21 08:28 Clumped Platelets Not Reportable 11/17/21 08:28 Plt Clumps, EDTA Not Reportable 11/17/21 08:28 Large Platelets Not Reportable 11/17/21 08:28 Giant Platelets Not Reportable 11/17/21 08:28 Platelet Satelliting Not Reportable 11/17/21 08:28 Plt Morphology Comment Not Reportable 11/17/21 08:28 RBC Morphology Normal 11/17/21 08:28 Dimorphic RBCs Not Reportable 11/17/21 08:28 Polychromasia Not Reportable 11/17/21 08:28 Hypochromasia Not Reportable 11/17/21 08:28 Poikilocytosis Not Reportable 11/17/21 08:28 Anisocytosis Not Reportable 11/17/21 08:28 Microcytosis Not Reportable 11/17/21 08:28 Macrocytosis Not Reportable 11/17/21 08:28 Spherocytes Not Reportable 11/17/21 08:28 Pappenheimer Bodies Not Reportable 11/17/21 08:28 Sickle Cells Not Reportable 11/17/21 08:28 Target Cells Not Reportable 11/17/21 08:28 Tear Drop Cells Not Reportable 11/17/21 08:28 Ovalocytes Not Reportable 11/17/21 08:28 Stomatocytes 1+ 11/16/21 15:30 Helmet Cells Not Reportable 11/17/21 08:28 Ybarra-Paauilo Bodies Not Reportable 11/17/21 08:28 [place] Rings Not Reportable 11/17/21 08:28 [place] Cells Not Reportable 11/17/21 08:28 Bite Cells Not Reportable 11/17/21 08:28 Crenated Cell Not Reportable 11/17/21 08:28 Elliptocytes Not Reportable 11/17/21 08:28 Acanthocytes (Spur) Not Reportable 11/17/21 08:28 Rouleaux Not Reportable 11/17/21 08:28 Hemoglobin C Crystals Not Reportable 11/17/21 08:28 Schistocytes Not Reportable 11/17/21 08:28 Malaria parasites Not Reportable 11/17/21 08:28 Miguel Bodies Not Reportable 11/17/21 08:28 Hem Pathologist Commnt No 11/17/21 08:28 PT 13.6 Sec. (12.2-14.9) 11/16/21 15:30 INR 0.92 (0.87-1.13) 11/16/21 15:30 APTT 30.4 Sec. (24.2-36.6) 11/16/21 15:30 ABG pH 7.390 pH Units (7.350-7.450) 11/17/21 15:10 ABG pCO2 64.4 mm Hg 11/17/21 15:10 ABG pO2 42.0 mm Hg (80.0-90.0) L 11/17/21 15:10 ABG HCO3 38.1 mmol/L (20.0-26.0) H 11/17/21 15:10 ABG O2 Saturation 80.5 % (95.0-99.0) L 11/17/21 15:10 ABG O2 Content 15.3 (0.0-44) 11/17/21 15:10 ABG Base Excess 10.5 mmol/L (-2.0-3.0) H 11/17/21 15:10 ABG Hemoglobin 13.9 gm/dl (14.0-18.0) L 11/17/21 15:10 ABG Carboxyhemoglobin 1.8 % (0.0-5.0) 11/17/21 15:10 ABG Methemoglobin 0.6 % (0.0-1.5) 11/17/21 15:10 Oxyhemoglobin 78.6 % (95.0-99.0) L 11/17/21 15:10 FiO2 21 % 11/17/21 15:10 Sodium 135 mmol/L (137-145) L 11/19/21 16:31 Potassium 4.5 mmol/L (3.6-5.0) 11/19/21 16:31 Chloride 88.1 mmol/L (98-107) L 11/19/21 16:31 Carbon Dioxide 38 mmol/L (22-30) H 11/19/21 16:31 Anion Gap 13 mmol/L 11/19/21 16:31 BUN 15 mg/dL (9-20) 11/19/21 16:31 Creatinine 0.9 mg/dL (0.8-1.3) 11/19/21 16:31 Estimated GFR > 60 ml/min 11/19/21 16:31 BUN/Creatinine Ratio 17 % 11/19/21 16:31 Glucose 150 mg/dL (75-100) H 11/19/21 16:31 POC Glucose 167 mg/dL (70-105) H 11/21/21 02:57 Calcium 8.5 mg/dL (8.4-10.2) 11/19/21 16:31 Total Bilirubin 0.20 mg/dL (0.1-1.2) 11/16/21 15:30 AST 54 units/L (5-40) H 11/16/21 15:30 ALT 43 units/L (7-56) 11/16/21 15:30 Alkaline Phosphatase 79 units/L (35-129) 11/16/21 15:30 Troponin T < 0.010 ng/mL (0.00-0.029) 11/16/21 19:31 NT-Pro-B Natriuret Pep 3063 pg/mL (0-900) H 11/16/21 15:30 Total Protein 6.5 g/dL (6.3-8.2) 11/16/21 15:30 Albumin 3.5 g/dL (3.9-5) L 11/16/21 15:30 Albumin/Globulin Ratio 1.2 % 11/16/21 15:30 Microbiology: Microbiology 11/16/21 15:30 Peripheral/Venous Blood Culture - Preliminary NO GROWTH AFTER 4 DAYS 11/16/21 15:30 Peripheral/Venous Blood Culture - Preliminary NO GROWTH AFTER 4 DAYS Hammond/IV: Voiding Method Toilet Active Medications - Current Medications Current Medications: Generic Name Dose Route Start Last Admin Trade Name Freq PRN Reason Stop Dose Admin Acetaminophen 650 mg 11/16/21 17:41 Acetaminophen 325 Mg Tab PO Q4H PRN Pain MILD(1-3)/Fever >100.5/VILLELA Albuterol 2.5 mg 11/16/21 17:41 Albuterol 2.5 Mg/3 Ml Nebu IH Q4HRT PRN Shortness Of Breath Arformoterol Tartrate 15 mcg 11/18/21 20:00 11/21/21 08:28 Arformoterol 15 Mcg/2 Ml Nebu IH 15 mcg Q12HRT JENNIFER Administration Aspirin 81 mg 11/17/21 10:00 11/21/21 09:36 Aspirin Ec 81 Mg Tab PO 81 mg QDAY JENNIFER Administration Budesonide 0.5 mg 11/18/21 20:00 11/21/21 08:28 Budesonide 0.5 Mg/2 Ml Nebu IH 0.5 mg Q12HRT JENNIFER Administration Buspirone HCl 30 mg 11/16/21 22:00 11/20/21 21:01 Buspirone 10 Mg Tab PO 30 mg BID JENNIFER Administration Furosemide 40 mg 11/18/21 10:00 11/21/21 09:35 Furosemide 40 Mg Tab PO 40 mg QDAY JENNIFER Administration Hydrochlorothiazide 25 mg 11/18/21 10:00 11/21/21 09:35 Hydrochlorothiazide 25 Mg Tab PO 25 mg QDAY JENNIFER Administration Hydromorphone HCl 0.5 mg 11/16/21 17:41 Hydromorphone 0.5 Mg/0.5 Ml Inj IV Q13H PRN Pain , Severe (7-10) Melatonin 5 mg 11/21/21 22:00 Melatonin 5 Mg Tab PO QHS JENNIFER Methocarbamol 500 mg 11/16/21 17:44 11/20/21 21:01 Methocarbamol 500 Mg Tab PO 500 mg BID PRN Administration Muscle Spasm Metoprolol Tartrate 12.5 mg 11/21/21 10:00 Metoprolol Tartrate 25 Mg Tab PO BID JENNIFER Ondansetron HCl 4 mg 11/16/21 17:41 Ondansetron 4 Mg/2 Ml Inj IV Q8H PRN Nausea And Vomiting Oxycodone/Acetaminophen 1 tab 11/16/21 17:41 11/17/21 20:58 Oxycodone /Acetaminophen 5-325mg Tab PO 1 tab Q6H PRN Administration Pain, Moderate (4-6) Sodium Chloride 10 ml 11/16/21 22:00 11/21/21 09:36 Sodium Chloride 0.9% 10 Ml Flush Syringe IV 10 ml BID JENNIFER Administration Sodium Chloride 10 ml 11/16/21 17:41 Sodium Chloride 0.9% 10 Ml Flush Syringe IV PRN PRN LINE FLUSH Trazodone HCl 50 mg 11/21/21 22:00 Trazodone 50 Mg Tab PO QHS PRN Insomnia Verapamil HCl 80 mg 11/17/21 14:00 11/21/21 05:42 Verapamil 80 Mg Tab PO Not Given Q8HR [facility] <TRUNG WHITESIDE - Last Filed: 11/22/21 12:32> Assessment and Plan Assessment and plan: I saw and evaluated the patient. I agree with the findings and the plan of care as documented in the Nurse Practitioner's~note, with the following corrections and additions. Hospitalist Physical - Constitutional Vitals: Temp Pulse Resp BP Pulse Ox 98.1 F 88 23 143/69 95 11/22/21 11:46 11/22/21 12:00 11/22/21 12:00 11/22/21 12:00 11/22/21 12:00 HEART Score - HEART Score Troponin: Troponin T < 0.010 ng/mL (0.00-0.029) 11/16/21 19:31 Results - Labs CBC & Chem 7: 11/21/21 08:20 11/21/21 08:20 Labs: Laboratory Last Values WBC 8.5 K/mm3 (4.5-11.0) 11/21/21 08:20 RBC 4.31 M/mm3 (3.65-5.03) 11/21/21 08:20 Hgb 13.0 gm/dl (11.8-15.2) 11/21/21 08:20 Hct 40.7 % (35.5-45.6) 11/21/21 08:20 MCV 94 fl (84-94) 11/21/21 08:20 MCH 30 pg (28-32) 11/21/21 08:20 MCHC 32 % (32-34) 11/21/21 08:20 RDW 16.3 % (13.2-15.2) H 11/21/21 08:20 Plt Count 206 K/mm3 (140-440) 11/21/21 08:20 Add Manual Diff Complete 11/17/21 08:28 Total Counted 100 11/17/21 08:28 Seg Neuts % (Manual) 88.0 % (40.0-70.0) H 11/17/21 08:28 Band Neutrophils % 2.0 % 11/17/21 08:28 Lymphocytes % (Manual) 6.0 % (13.4-35.0) L 11/17/21 08:28 Reactive Lymphs % (Man) 0 % 11/17/21 08:28 Monocytes % (Manual) 4.0 % (0.0-7.3) 11/17/21 08:28 Eosinophils % (Manual) 0 % (0.0-4.3) 11/17/21 08:28 Basophils % (Manual) 0 % (0.0-1.8) 11/17/21 08:28 Metamyelocytes % 0 % 11/17/21 08:28 Myelocytes % 0 % 11/17/21 08:28 Promyelocytes % 0 % 11/17/21 08:28 Blast Cells % 0 % 11/17/21 08:28 Nucleated RBC % Not Reportable 11/17/21 08:28 Seg Neutrophils # Man 13.1 K/mm3 (1.8-7.7) H 11/17/21 08:28 Band Neutrophils # 0.3 K/mm3 11/17/21 08:28 Lymphocytes # (Manual) 0.9 K/mm3 (1.2-5.4) L 11/17/21 08:28 Abs React Lymphs (Man) 0.0 K/mm3 11/17/21 08:28 Monocytes # (Manual) 0.6 K/mm3 (0.0-0.8) 11/17/21 08:28 Eosinophils # (Manual) 0.0 K/mm3 (0.0-0.4) 11/17/21 08:28 Basophils # (Manual) 0.0 K/mm3 (0.0-0.1) 11/17/21 08:28 Metamyelocytes # 0.0 K/mm3 11/17/21 08:28 Myelocytes # 0.0 K/mm3 11/17/21 08:28 Promyelocytes # 0.0 K/mm3 11/17/21 08:28 Blast Cells # 0.0 K/mm3 11/17/21 08:28 WBC Morphology Not Reportable 11/17/21 08:28 Hypersegmented Neuts Not Reportable 11/17/21 08:28 Hyposegmented Neuts Not Reportable 11/17/21 08:28 Hypogranular Neuts Not Reportable 11/17/21 08:28 Smudge Cells Not Reportable 11/17/21 08:28 Toxic Granulation Not Reportable 11/17/21 08:28 Toxic Vacuolation Not Reportable 11/17/21 08:28 Dohle Bodies Not Reportable 11/17/21 08:28 Pelger-Huet Anomaly Not Reportable 11/17/21 08:28 Riya Rods Not Reportable 11/17/21 08:28 Platelet Estimate Consistent w auto 11/17/21 08:28 Clumped Platelets Not Reportable 11/17/21 08:28 Plt Clumps, EDTA Not Reportable 11/17/21 08:28 Large Platelets Not Reportable 11/17/21 08:28 Giant Platelets Not Reportable 11/17/21 08:28 Platelet Satelliting Not Reportable 11/17/21 08:28 Plt Morphology Comment Not Reportable 11/17/21 08:28 RBC Morphology Normal 11/17/21 08:28 Dimorphic RBCs Not Reportable 11/17/21 08:28 Polychromasia Not Reportable 11/17/21 08:28 Hypochromasia Not Reportable 11/17/21 08:28 Poikilocytosis Not Reportable 11/17/21 08:28 Anisocytosis Not Reportable 11/17/21 08:28 Microcytosis Not Reportable 11/17/21 08:28 Macrocytosis Not Reportable 11/17/21 08:28 Spherocytes Not Reportable 11/17/21 08:28 Pappenheimer Bodies Not Reportable 11/17/21 08:28 Sickle Cells Not Reportable 11/17/21 08:28 Target Cells Not Reportable 11/17/21 08:28 Tear Drop Cells Not Reportable 11/17/21 08:28 Ovalocytes Not Reportable 11/17/21 08:28 Stomatocytes 1+ 11/16/21 15:30 Helmet Cells Not Reportable 11/17/21 08:28 Ybarra-Paauilo Bodies Not Reportable 11/17/21 08:28 [place] Rings Not Reportable 11/17/21 08:28 [place] Cells Not Reportable 11/17/21 08:28 Bite Cells Not Reportable 11/17/21 08:28 Crenated Cell Not Reportable 11/17/21 08:28 Elliptocytes Not Reportable 11/17/21 08:28 Acanthocytes (Spur) Not Reportable 11/17/21 08:28 Rouleaux Not Reportable 11/17/21 08:28 Hemoglobin C Crystals Not Reportable 11/17/21 08:28 Schistocytes Not Reportable 11/17/21 08:28 Malaria parasites Not Reportable 11/17/21 08:28 Miguel Bodies Not Reportable 11/17/21 08:28 Hem Pathologist Commnt No 11/17/21 08:28 PT 13.6 Sec. (12.2-14.9) 11/16/21 15:30 INR 0.92 (0.87-1.13) 11/16/21 15:30 APTT 30.4 Sec. (24.2-36.6) 11/16/21 15:30 ABG pH 7.390 pH Units (7.350-7.450) 11/17/21 15:10 ABG pCO2 64.4 mm Hg 11/17/21 15:10 ABG pO2 42.0 mm Hg (80.0-90.0) L 11/17/21 15:10 ABG HCO3 38.1 mmol/L (20.0-26.0) H 11/17/21 15:10 ABG O2 Saturation 80.5 % (95.0-99.0) L 11/17/21 15:10 ABG O2 Content 15.3 (0.0-44) 11/17/21 15:10 ABG Base Excess 10.5 mmol/L (-2.0-3.0) H 11/17/21 15:10 ABG Hemoglobin 13.9 gm/dl (14.0-18.0) L 11/17/21 15:10 ABG Carboxyhemoglobin 1.8 % (0.0-5.0) 11/17/21 15:10 ABG Methemoglobin 0.6 % (0.0-1.5) 11/17/21 15:10 Oxyhemoglobin 78.6 % (95.0-99.0) L 11/17/21 15:10 FiO2 21 % 11/17/21 15:10 Sodium 139 mmol/L (137-145) 11/21/21 08:20 Potassium 3.9 mmol/L (3.6-5.0) 11/21/21 08:20 Chloride 93.6 mmol/L (98-107) L 11/21/21 08:20 Carbon Dioxide 40 mmol/L (22-30) H 11/21/21 08:20 Anion Gap 9 mmol/L 11/21/21 08:20 BUN 10 mg/dL (9-20) 11/21/21 08:20 Creatinine 0.8 mg/dL (0.8-1.3) 11/21/21 08:20 Estimated GFR > 60 ml/min 11/21/21 08:20 BUN/Creatinine Ratio 13 % 11/21/21 08:20 Glucose 167 mg/dL (75-100) H 11/21/21 08:20 POC Glucose 130 mg/dL (70-105) H 11/22/21 07:44 Calcium 8.6 mg/dL (8.4-10.2) 11/21/21 08:20 Phosphorus 3.50 mg/dL (2.5-4.5) 11/21/21 08:20 Magnesium 2.00 mg/dL (1.7-2.3) 11/21/21 08:20 Total Bilirubin 0.20 mg/dL (0.1-1.2) 11/16/21 15:30 AST 54 units/L (5-40) H 11/16/21 15:30 ALT 43 units/L (7-56) 11/16/21 15:30 Alkaline Phosphatase 79 units/L (35-129) 11/16/21 15:30 Troponin T < 0.010 ng/mL (0.00-0.029) 11/16/21 19:31 NT-Pro-B Natriuret Pep 3063 pg/mL (0-900) H 11/16/21 15:30 Total Protein 6.5 g/dL (6.3-8.2) 11/16/21 15:30 Albumin 3.5 g/dL (3.9-5) L 11/16/21 15:30 Albumin/Globulin Ratio 1.2 % 11/16/21 15:30 Microbiology: Microbiology 11/16/21 15:30 Peripheral/Venous Blood Culture - Final NO GROWTH AFTER 5 DAYS 11/16/21 15:30 Peripheral/Venous Blood Culture - Final NO GROWTH AFTER 5 DAYS Hammond/IV: Voiding Method Condom Catheter Active Medications - Current Medications Current Medications: Generic Name Dose Route Start Last Admin Trade Name Freq PRN Reason Stop Dose Admin Acetaminophen 650 mg 11/16/21 17:41 Acetaminophen 325 Mg Tab PO Q4H PRN Pain MILD(1-3)/Fever >100.5/VILLELA Albuterol 2.5 mg 11/16/21 17:41 Albuterol 2.5 Mg/3 Ml Nebu IH Q4HRT PRN Shortness Of Breath Arformoterol Tartrate 15 mcg 11/18/21 20:00 11/22/21 10:25 Arformoterol 15 Mcg/2 Ml Nebu IH 15 mcg Q12HRT JENNIFER Administration Aspirin 81 mg 11/17/21 10:00 11/22/21 10:50 Aspirin Ec 81 Mg Tab PO 81 mg QDAY JENNIFER Administration Budesonide 0.5 mg 11/18/21 20:00 11/22/21 10:30 Budesonide 0.5 Mg/2 Ml Nebu IH 0.5 mg Q12HRT JENNIFER Administration Buspirone HCl 30 mg 11/16/21 22:00 11/22/21 11:58 Buspirone 10 Mg Tab PO 30 mg BID JENNIFER Administration Dextrose 50 ml 11/21/21 11:30 Dextrose 50% In Water (25gm) 50 Ml Syringe IV Q30MIN PRN Hypoglycemia Protocol Famotidine 20 mg 11/21/21 22:00 11/21/21 22:13 Famotidine 20 Mg Tab PO 20 mg QHS JENNIFER Administration Furosemide 20 mg 11/21/21 18:00 11/22/21 06:56 Furosemide 20 Mg/2 Ml Inj IV 20 mg 0600,1800 JENNIFER Administration Hydromorphone HCl 0.5 mg 11/16/21 17:41 Hydromorphone 0.5 Mg/0.5 Ml Inj IV Q13H PRN Pain , Severe (7-10) Insulin Human Lispro 0 unit 11/21/21 11:30 11/22/21 12:00 Insulin Lispro 100 Unit/Ml SUB-Q 2 unit ACHS JENNIFER Administration Protocol Melatonin 5 mg 11/21/21 22:00 11/21/21 22:14 Melatonin 5 Mg Tab PO 5 mg QHS JENNIFER Administration Methocarbamol 500 mg 11/16/21 17:44 11/21/21 22:14 Methocarbamol 500 Mg Tab PO 500 mg BID PRN Administration Muscle Spasm Metoprolol Tartrate 12.5 mg 11/21/21 10:00 11/22/21 10:50 Metoprolol Tartrate 25 Mg Tab PO 12.5 mg BID JENNIFER Administration Ondansetron HCl 4 mg 11/16/21 17:41 Ondansetron 4 Mg/2 Ml Inj IV Q8H PRN Nausea And Vomiting Oxycodone/Acetaminophen 1 tab 11/16/21 17:41 11/17/21 20:58 Oxycodone /Acetaminophen 5-325mg Tab PO 1 tab Q6H PRN Administration Pain, Moderate (4-6) Sodium Chloride 10 ml 11/16/21 22:00 11/22/21 10:51 Sodium Chloride 0.9% 10 Ml Flush Syringe IV 10 ml BID JENNIFER Administration Sodium Chloride 10 ml 11/16/21 17:41 Sodium Chloride 0.9% 10 Ml Flush Syringe IV PRN PRN LINE FLUSH Trazodone HCl 50 mg 11/21/21 22:00 11/21/21 22:14 Trazodone 50 Mg Tab PO 50 mg QHS PRN Administration Insomnia Verapamil HCl 80 mg 11/17/21 14:00 11/22/21 06:56 Verapamil 80 Mg Tab PO 80 mg Q8HR JENNIFRE Administration Nutrition/Malnutrition Assess - Dietary Evaluation Nutrition/Malnutrition Findings: Nutrition Notes Start: 11/21/21 13:21 Freq: Status: Active Protocol: Document 11/21/21 13:21 TW (Rec: 11/21/21 13:25 TW [email or web address]) Nutrition Notes Need for Assessment generated from: MD Order,Education Initial or Follow up Brief Note Current Diagnosis Diabetes,Hypertension,Heart Failure Other Pertinent Diagnosis vascular dementia, cerebral atherosclerosis, metbaolic syndrome Current Diet Cardiac Labs/Tests Glucose:167 Pertinent Medications D50w 50ml [id number] Height 5 ft 8 in Weight 161 kg [place] Body Weight (kg) 70.00 BMI 53.9 Weight Status Morbidly Obese Subjective/Other Information RD consulted for diet education. Pt presents with weakness, difficulty breathing , leg edema. HX of metabolic syndrome, obesity hyperventilation, bipolar disorder. Ignacio score of 14. Pt not a candidate for diet education at this time. Burn Absent Trauma Absent Minimum of two criteria No Nutrition Intervention Anticipated Discharge Needs: Unable to identify at this time Follow-Up By: 11/23/21 Additional Comments F/U for PO intake, glucose levels, need for diet education
[2021-11-21] MEDS: busPIRone 10 MG TAB PO SCH ×2 (10:50→22:14)
--- NOTE | 2021-11-21 10:56 | XRay Report ---
CHEST 1 VIEW 11/21/2021 8:58 AM INDICATION / CLINICAL INFORMATION: Follow up respiratory failure. COMPARISON: 11-16-21 FINDINGS: SUPPORT DEVICES: Monitoring leads overlie the patient. Defibrillator pad now overlies the left chest, obscuring visualization of portions of the left hemithorax. HEART / MEDIASTINUM: Similar borderline cardiomegaly with limited evaluation, patient rotated to the right. LUNGS / PLEURA: Increasing diffuse reticular interstitial opacities concerning for slightly increasin g edema and/or pneumonitis. Basilar atelectasis and/or small effusions appear similar. No pneumothora x. ADDITIONAL FINDINGS: No significant additional findings. IMPRESSION: 1. Slight worsening radiographic cardiopulmonary appearances, overall evaluation limited by technique . Signer Name: Benjamin Gimenez MD Signed: 11/21/2021 10:52 AM Workstation Name: [employer]
[2021-11-21] MEDS: INSULIN LISPRO 100 UNIT/ML SUB-Q SCH ×3 (11:09→22:21)
[2021-11-21 11:15] LABS: BUN/Creatinine Ratio 13; Blood Urea Nitrogen 10 mg/dL (9-20); Calcium 8.6 mg/dL (8.4-10.2); Hemolysis Index 0
[2021-11-21 11:26] LABS: Hematocrit 40.7 % (35.5-45.6); Mean Corpuscular HGB Conc 32 % (32-34); Mean Corpuscular Volume 94 fl (84-94); Platelet Count 206 K/mm3 (140-440); Red Blood Count 4.31 M/mm3 (3.65-5.03); Red Cell Distribution Width 16.3 % (13.2-15.2)
[2021-11-21] MEDS ORDERED: DEXTROSE 50% IN WATER (25GM) 50 ML SYRINGE IV PRN (11:30)
--- NOTE | 2021-11-21 12:12 | Progress Note ---
Assessment and Plan 76 y/o male with obesity hypoventilation syndrome and acute respiratory failure likely from volume overload but could have component of COPD as well given smoking history. 11/21/2021: Patient was transferred to ICU due to SVT. Being managed by cardiology. Back in normal sinus rhythm now. Mildly short of breath remain on oxygen at 10 L salter. Saturations and low to mid 90s. Has significant obesity hypoventilation syndrome with chronic hypoxic hypercapnic respiratory failure. Will require PSG and full pulmonary evaluation as outpatient. 11/20/21: Continue scheduled nebs. NIV therapy at night and PRN during the day. Weight loss. Will need full PFT and outpatient PSG at discharge 11/19/21: Continue supplemental O2, will need walk test prior to discharge. Bipap has been tried and failed in this patient, this is the reason I am seeking help from [facility] to prevent recurrent hospitalizations. 1. May need to consider putting back on IV lasix 2. Will add BID Pulmicort and Brovana therapy 3. Hold on IV steroids unless oxygen requirement continues to increase 4. Patient is willing to use NIV at home. Spoke with CM. Will reach out to [facility]. Will also need home O2 based on room air ABG. 5. Patient requires volume ventilation and all other therapies including bipap have been considered and ruled out due to the severity of the disease state and life threatening conditions including CO2 retention. Due to increased probability of acute exacerbation, patient requires mouthpiece ventilation to be used during the day as needed in addition to QHS usage with facemask. Patient suffers from chronic respiratory failure secondary to Obesity Hypoventilation syndrome and likely COPD given his smoking history. 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 He is now back in normal rhythm. Doing reasonably well. On 10L O2 salter Objective Vital Signs - 12hr 11/21/21 11/21/21 11/21/21 03:00 03:06 03:28 Temperature Pulse Rate 179 H 127 H 152 H Pulse Rate [ Anterior Bilateral Throughout] Pulse Rate [ From Monitor] Respiratory 19 Rate Respiratory Rate [Anterior Bilateral Throughout] Blood Pressure Blood Pressure 131/70 152/97 [Right] O2 Sat by Pulse 90 92 Oximetry 11/21/21 11/21/21 11/21/21 03:30 03:40 03:50 Temperature Pulse Rate 148 H 130 H 90 Pulse Rate [ Anterior Bilateral Throughout] Pulse Rate [ From Monitor] Respiratory 17 37 H 23 Rate Respiratory Rate [Anterior Bilateral Throughout] Blood Pressure 113/64 113/64 126/69 Blood Pressure [Right] O2 Sat by Pulse 88 91 92 Oximetry 11/21/21 11/21/21 11/21/21 04:00 04:10 04:20 Temperature 98.6 F Pulse Rate 87 85 88 Pulse Rate [ Anterior Bilateral Throughout] Pulse Rate [ 148 H From Monitor] Respiratory 20 24 23 Rate Respiratory Rate [Anterior Bilateral Throughout] Blood Pressure 125/65 125/65 125/62 Blood Pressure [Right] O2 Sat by Pulse 92 97 97 Oximetry 11/21/21 11/21/21 11/21/21 04:30 04:41 04:51 Temperature Pulse Rate 89 85 83 Pulse Rate [ Anterior Bilateral Throughout] Pulse Rate [ From Monitor] Respiratory 23 23 20 Rate Respiratory Rate [Anterior Bilateral Throughout] Blood Pressure 119/59 125/62 111/59 Blood Pressure [Right] O2 Sat by Pulse 96 96 97 Oximetry 11/21/21 11/21/21 11/21/21 05:00 05:11 05:21 Temperature Pulse Rate 87 83 93 H Pulse Rate [ Anterior Bilateral Throughout] Pulse Rate [ From Monitor] Respiratory 22 25 H 24 Rate Respiratory Rate [Anterior Bilateral Throughout] Blood Pressure 127/58 127/58 127/65 Blood Pressure [Right] O2 Sat by Pulse 97 97 88 Oximetry 11/21/21 11/21/21 11/21/21 05:30 05:41 05:42 Temperature Pulse Rate 81 78 78 Pulse Rate [ Anterior Bilateral Throughout] Pulse Rate [ From Monitor] Respiratory 26 H 22 Rate Respiratory Rate [Anterior Bilateral Throughout] Blood Pressure 110/48 110/48 110/48 Blood Pressure [Right] O2 Sat by Pulse 94 95 Oximetry 11/21/21 11/21/21 11/21/21 05:51 06:00 06:11 Temperature Pulse Rate 72 74 74 Pulse Rate [ Anterior Bilateral Throughout] Pulse Rate [ From Monitor] Respiratory 22 22 23 Rate Respiratory Rate [Anterior Bilateral Throughout] Blood Pressure 111/49 110/48 110/48 Blood Pressure [Right] O2 Sat by Pulse 95 96 96 Oximetry 11/21/21 11/21/21 11/21/21 06:21 06:30 06:41 Temperature Pulse Rate 72 72 71 Pulse Rate [ Anterior Bilateral Throughout] Pulse Rate [ From Monitor] Respiratory 21 23 26 H Rate Respiratory Rate [Anterior Bilateral Throughout] Blood Pressure 116/54 98/45 98/45 Blood Pressure [Right] O2 Sat by Pulse 94 100 86 Oximetry 11/21/21 11/21/21 11/21/21 06:51 07:00 07:11 Temperature Pulse Rate 75 66 65 Pulse Rate [ Anterior Bilateral Throughout] Pulse Rate [ From Monitor] Respiratory 24 24 27 H Rate Respiratory Rate [Anterior Bilateral Throughout] Blood Pressure 109/35 111/34 111/34 Blood Pressure [Right] O2 Sat by Pulse 80 L 92 96 Oximetry 11/21/21 11/21/21 11/21/21 07:21 07:31 07:34 Temperature 98.5 F Pulse Rate 79 93 H Pulse Rate [ Anterior Bilateral Throughout] Pulse Rate [ 75 From Monitor] Respiratory 16 15 28 H Rate Respiratory Rate [Anterior Bilateral Throughout] Blood Pressure 125/60 125/60 Blood Pressure [Right] O2 Sat by Pulse 96 91 93 Oximetry 11/21/21 11/21/21 11/21/21 07:41 07:51 08:00 Temperature Pulse Rate 69 66 67 Pulse Rate [ Anterior Bilateral Throughout] Pulse Rate [ From Monitor] Respiratory 21 24 20 Rate Respiratory Rate [Anterior Bilateral Throughout] Blood Pressure 125/60 115/55 127/58 Blood Pressure [Right] O2 Sat by Pulse 96 98 98 Oximetry 11/21/21 11/21/21 11/21/21 08:11 08:21 08:30 Temperature Pulse Rate 69 70 81 Pulse Rate [ Anterior Bilateral Throughout] Pulse Rate [ From Monitor] Respiratory 20 21 32 H Rate Respiratory Rate [Anterior Bilateral Throughout] Blood Pressure 127/58 118/62 137/64 Blood Pressure [Right] O2 Sat by Pulse 98 98 95 Oximetry 11/21/21 11/21/21 11/21/21 08:32 08:33 08:36 Temperature Pulse Rate Pulse Rate [ 82 Anterior Bilateral Throughout] Pulse Rate [ From Monitor] Respiratory Rate Respiratory 24 Rate [Anterior Bilateral Throughout] Blood Pressure Blood Pressure [Right] O2 Sat by Pulse 98 99 Oximetry 11/21/21 11/21/21 11/21/21 08:41 08:51 09:00 Temperature Pulse Rate 72 75 74 Pulse Rate [ Anterior Bilateral Throughout] Pulse Rate [ From Monitor] Respiratory 18 27 H 27 H Rate Respiratory Rate [Anterior Bilateral Throughout] Blood Pressure 137/64 129/59 125/52 Blood Pressure [Right] O2 Sat by Pulse 100 99 97 Oximetry 11/21/21 11/21/21 11/21/21 09:11 09:21 09:31 Temperature Pulse Rate 86 87 82 Pulse Rate [ Anterior Bilateral Throughout] Pulse Rate [ From Monitor] Respiratory 14 11 L 12 Rate Respiratory Rate [Anterior Bilateral Throughout] Blood Pressure 125/52 131/61 131/61 Blood Pressure [Right] O2 Sat by Pulse 93 92 92 Oximetry 11/21/21 11/21/21 11/21/21 09:41 09:51 10:00 Temperature Pulse Rate 77 77 68 Pulse Rate [ Anterior Bilateral Throughout] Pulse Rate [ From Monitor] Respiratory 14 10 L 26 H Rate Respiratory Rate [Anterior Bilateral Throughout] Blood Pressure 120/54 120/54 96/39 Blood Pressure [Right] O2 Sat by Pulse 91 91 93 Oximetry 11/21/21 11/21/21 11/21/21 10:07 10:09 10:11 Temperature Pulse Rate 67 80 76 Pulse Rate [ Anterior Bilateral Throughout] Pulse Rate [ From Monitor] Respiratory 21 10 L 20 Rate Respiratory Rate [Anterior Bilateral Throughout] Blood Pressure 96/39 96/39 96/39 Blood Pressure [Right] O2 Sat by Pulse 97 95 94 Oximetry 11/21/21 11/21/21 11/21/21 10:13 10:15 10:16 Temperature Pulse Rate 76 74 76 Pulse Rate [ Anterior Bilateral Throughout] Pulse Rate [ From Monitor] Respiratory 31 H 26 H 25 H Rate Respiratory Rate [Anterior Bilateral Throughout] Blood Pressure 96/39 106/39 106/39 Blood Pressure [Right] O2 Sat by Pulse 93 93 93 Oximetry 11/21/21 11/21/21 11/21/21 10:17 10:18 10:19 Temperature Pulse Rate 71 75 72 Pulse Rate [ Anterior Bilateral Throughout] Pulse Rate [ From Monitor] Respiratory 23 9 L 16 Rate Respiratory Rate [Anterior Bilateral Throughout] Blood Pressure 109/38 105/41 105/41 Blood Pressure [Right] O2 Sat by Pulse 92 92 92 Oximetry 11/21/21 11/21/21 11/21/21 10:21 10:23 10:25 Temperature Pulse Rate 69 78 69 Pulse Rate [ Anterior Bilateral Throughout] Pulse Rate [ From Monitor] Respiratory 25 H 20 20 Rate Respiratory Rate [Anterior Bilateral Throughout] Blood Pressure 105/41 105/41 105/41 Blood Pressure [Right] O2 Sat by Pulse 93 92 93 Oximetry 11/21/21 11/21/21 11/21/21 10:27 10:29 10:31 Temperature Pulse Rate 68 75 67 Pulse Rate [ Anterior Bilateral Throughout] Pulse Rate [ From Monitor] Respiratory 30 H 24 12 Rate Respiratory Rate [Anterior Bilateral Throughout] Blood Pressure 105/41 105/41 119/12 Blood Pressure [Right] O2 Sat by Pulse 94 92 92 Oximetry 11/21/21 11/21/21 11/21/21 10:33 10:35 10:37 Temperature Pulse Rate 86 66 80 Pulse Rate [ Anterior Bilateral Throughout] Pulse Rate [ From Monitor] Respiratory 21 28 H 17 Rate Respiratory Rate [Anterior Bilateral Throughout] Blood Pressure 119/12 104/36 104/36 Blood Pressure [Right] O2 Sat by Pulse 96 94 92 Oximetry 11/21/21 11/21/21 11/21/21 10:39 10:41 10:43 Temperature Pulse Rate 68 69 69 Pulse Rate [ Anterior Bilateral Throughout] Pulse Rate [ From Monitor] Respiratory 25 H 27 H 20 Rate Respiratory Rate [Anterior Bilateral Throughout] Blood Pressure 104/36 104/36 104/36 Blood Pressure [Right] O2 Sat by Pulse 92 97 94 Oximetry 11/21/21 11/21/21 11/21/21 10:45 10:46 10:47 Temperature Pulse Rate 71 67 70 Pulse Rate [ Anterior Bilateral Throughout] Pulse Rate [ From Monitor] Respiratory 27 H 29 H 13 Rate Respiratory Rate [Anterior Bilateral Throughout] Blood Pressure 115/47 115/47 115/47 Blood Pressure [Right] O2 Sat by Pulse 93 91 95 Oximetry 11/21/21 11/21/21 11/21/21 10:49 10:51 10:53 Temperature Pulse Rate 65 73 91 H Pulse Rate [ Anterior Bilateral Throughout] Pulse Rate [ From Monitor] Respiratory 24 26 H 20 Rate Respiratory Rate [Anterior Bilateral Throughout] Blood Pressure 115/47 115/47 115/47 Blood Pressure [Right] O2 Sat by Pulse 92 94 95 Oximetry 11/21/21 11/21/21 11/21/21 10:55 10:57 10:59 Temperature Pulse Rate 77 71 68 Pulse Rate [ Anterior Bilateral Throughout] Pulse Rate [ From Monitor] Respiratory 17 33 H 30 H Rate Respiratory Rate [Anterior Bilateral Throughout] Blood Pressure 115/47 115/47 115/47 Blood Pressure [Right] O2 Sat by Pulse 93 92 90 Oximetry 11/21/21 11/21/21 11/21/21 11:01 11:02 11:03 Temperature Pulse Rate 66 69 74 Pulse Rate [ Anterior Bilateral Throughout] Pulse Rate [ From Monitor] Respiratory 25 H 20 16 Rate Respiratory Rate [Anterior Bilateral Throughout] Blood Pressure 101/34 127/52 127/52 Blood Pressure [Right] O2 Sat by Pulse 93 93 92 Oximetry 11/21/21 11/21/21 11/21/21 11:05 11:07 11:09 Temperature Pulse Rate 75 67 70 Pulse Rate [ Anterior Bilateral Throughout] Pulse Rate [ From Monitor] Respiratory 29 H 27 H 24 Rate Respiratory Rate [Anterior Bilateral Throughout] Blood Pressure 127/52 127/52 127/52 Blood Pressure [Right] O2 Sat by Pulse 93 Oximetry 11/21/21 11/21/21 11/21/21 11:11 11:13 11:15 Temperature Pulse Rate 65 65 64 Pulse Rate [ Anterior Bilateral Throughout] Pulse Rate [ From Monitor] Respiratory 22 22 26 H Rate Respiratory Rate [Anterior Bilateral Throughout] Blood Pressure 127/52 127/52 118/46 Blood Pressure [Right] O2 Sat by Pulse 94 94 94 Oximetry 11/21/21 11/21/21 11/21/21 11:17 11:19 11:21 Temperature Pulse Rate 65 68 62 Pulse Rate [ Anterior Bilateral Throughout] Pulse Rate [ From Monitor] Respiratory 23 19 22 Rate Respiratory Rate [Anterior Bilateral Throughout] Blood Pressure 118/46 118/46 118/46 Blood Pressure [Right] O2 Sat by Pulse 94 94 95 Oximetry 11/21/21 11/21/21 11/21/21 11:23 11:25 11:27 Temperature Pulse Rate 72 77 79 Pulse Rate [ Anterior Bilateral Throughout] Pulse Rate [ From Monitor] Respiratory 30 H 24 22 Rate Respiratory Rate [Anterior Bilateral Throughout] Blood Pressure 118/46 118/46 118/46 Blood Pressure [Right] O2 Sat by Pulse 94 92 Oximetry 11/21/21 11/21/21 11/21/21 11:29 11:30 11:31 Temperature Pulse Rate 69 75 76 Pulse Rate [ Anterior Bilateral Throughout] Pulse Rate [ From Monitor] Respiratory 9 L 10 L 9 L Rate Respiratory Rate [Anterior Bilateral Throughout] Blood Pressure 118/46 93/71 93/71 Blood Pressure [Right] O2 Sat by Pulse 91 96 94 Oximetry 09/11/21/21 11/21/21 11:33 11:35 11:37 Temperature Pulse Rate 69 64 65 Pulse Rate [ Anterior Bilateral Throughout] Pulse Rate [ From Monitor] Respiratory 30 H 24 24 Rate Respiratory Rate [Anterior Bilateral Throughout] Blood Pressure 93/71 93/71 93/71 Blood Pressure [Right] O2 Sat by Pulse 92 94 92 Oximetry 11/21/21 11/21/21 11/21/21 11:39 11:41 11:43 Temperature Pulse Rate 66 69 62 Pulse Rate [ Anterior Bilateral Throughout] Pulse Rate [ From Monitor] Respiratory 25 H 20 20 Rate Respiratory Rate [Anterior Bilateral Throughout] Blood Pressure 93/71 93/71 93/71 Blood Pressure [Right] O2 Sat by Pulse 93 94 96 Oximetry 11/21/21 11/21/21 11/21/21 11:45 11:47 11:52 Temperature Pulse Rate 63 68 82 Pulse Rate [ Anterior Bilateral Throughout] Pulse Rate [ From Monitor] Respiratory 21 26 H 10 L Rate Respiratory Rate [Anterior Bilateral Throughout] Blood Pressure 117/44 117/44 117/44 Blood Pressure [Right] O2 Sat by Pulse 94 93 95 Oximetry Constitutional: alert, other (obese) Eyes: non-icteric ENT: oropharynx moist Neck: supple Effort: mildly labored Ascultation: Bilateral: rales Percussion: Bilateral: not dull Tactile fremitus: Bilateral: normal Cardiovascular: regular rate and rhythm Gastrointestinal: normoactive bowel sounds Extremities: edema, anasarca Neurologic: normal mental status, non-focal exam CBC and BMP: 11/21/21 08:20 11/21/21 08:20 ABG, PT/INR, D-dimer: ABG ABG pH 7.390 pH Units (7.350-7.450) 11/17/21 15:10 ABG pCO2 64.4 mm Hg 11/17/21 15:10 ABG pO2 42.0 mm Hg (80.0-90.0) L 11/17/21 15:10 ABG O2 Saturation 80.5 % (95.0-99.0) L 11/17/21 15:10 PT/INR, D-dimer PT 13.6 Sec. (12.2-14.9) 11/16/21 15:30 INR 0.92 (0.87-1.13) 11/16/21 15:30 Abnormal lab findings: Abnormal Labs 11/16/21 11/16/21 11/16/21 14:40 15:30 15:30 WBC 15.7 H RDW 16.4 H Seg Neuts % (Manual) 82.0 H Lymphocytes % (Manual) 12.0 L Seg Neutrophils # Man 12.9 H Lymphocytes # (Manual) ABG pH 7.200 L ABG pO2 69.5 L ABG HCO3 36.4 H ABG O2 Saturation 90.0 L ABG Base Excess 5.2 H ABG Hemoglobin 13.1 L Oxyhemoglobin 87.9 L Sodium 133 L Potassium 5.1 H Chloride 92.1 L Carbon Dioxide 32 H Glucose 126 H POC Glucose Calcium AST 54 H NT-Pro-B Natriuret Pep Albumin 3.5 L 11/16/21 11/17/21 11/17/21 15:30 08:28 08:28 WBC 14.9 H RDW 16.2 H Seg Neuts % (Manual) 88.0 H Lymphocytes % (Manual) 6.0 L Seg Neutrophils # Man 13.1 H Lymphocytes # (Manual) 0.9 L ABG pH ABG pO2 ABG HCO3 ABG O2 Saturation ABG Base Excess ABG Hemoglobin Oxyhemoglobin Sodium 133 L Potassium Chloride 93.0 L Carbon Dioxide 38 H Glucose 113 H POC Glucose Calcium AST NT-Pro-B Natriuret Pep 3063 H Albumin 11/17/21 11/18/21 11/18/21 15:10 11:43 14:36 WBC RDW Seg Neuts % (Manual) Lymphocytes % (Manual) Seg Neutrophils # Man Lymphocytes # (Manual) ABG pH ABG pO2 42.0 L ABG HCO3 38.1 H ABG O2 Saturation 80.5 L ABG Base Excess 10.5 H ABG Hemoglobin 13.9 L Oxyhemoglobin 78.6 L Sodium 135 L Potassium Chloride 85.9 L Carbon Dioxide 40 H Glucose 115 H POC Glucose 116 H Calcium 8.3 L AST NT-Pro-B Natriuret Pep Albumin 11/18/21 11/19/21 11/21/21 14:54 16:31 02:57 WBC RDW Seg Neuts % (Manual) Lymphocytes % (Manual) Seg Neutrophils # Man Lymphocytes # (Manual) ABG pH ABG pO2 ABG HCO3 ABG O2 Saturation ABG Base Excess ABG Hemoglobin Oxyhemoglobin Sodium 135 L Potassium Chloride 88.1 L Carbon Dioxide 38 H Glucose 150 H POC Glucose 145 H 167 H Calcium AST NT-Pro-B Natriuret Pep Albumin 11/21/21 11/21/21 08:20 08:20 WBC RDW 16.3 H Seg Neuts % (Manual) Lymphocytes % (Manual) Seg Neutrophils # Man Lymphocytes # (Manual) ABG pH ABG pO2 ABG HCO3 ABG O2 Saturation ABG Base Excess ABG Hemoglobin Oxyhemoglobin Sodium Potassium Chloride 93.6 L Carbon Dioxide 40 H Glucose 167 H POC Glucose Calcium AST NT-Pro-B Natriuret Pep Albumin
--- NOTE | 2021-11-21 14:15 | Progress Note ---
Assessment and Plan Assessment: Atrial Tachycardia vs Atrial Flutter Acute Respiratory Failure Acute HFpEF Morbid Obesity/OHS/?BRAYAN ?COPD HTN DM2 H/o Tobacco Abuse Echo 11/16/2021: Technically difficult study. EF 50 to 55%. Right ventricular systolic function is normal. No aortic regurgitation is present. Mild mitral regurgitation noted. Plan: Tele strips reviewed with EP. Rhythm favors AT vs AFlutter. Hold off on anticoagulation for now given short duration. If any recurrence, will revisit. Agree with addition of low dose BB. Continue Verapamil 80mg q8h. Switch PO Lasix to IV Lasix. Will order 20mg BID for the time being given borderline low BP after Cardizem gtt. Discontinue HCTZ. Pt seen in conjunction with Dr. Guerra, who agrees with the assessment and plan of care. - Patient Problems (1) Atrial tachycardia Current Visit: Yes Status: Acute (2) (HFpEF) heart failure with preserved ejection fraction Current Visit: Yes Status: Acute (3) Morbid obesity Current Visit: Yes Status: Chronic (4) Obesity hypoventilation syndrome Current Visit: Yes Status: Chronic Subjective Date of service: 11/21/21 Principal diagnosis: SVT Interval history: Called back to see pt for SVT. He went into ?SVT 170s around 3am. Converted to SR s/p IV Cardizem. Maintaining SR 80s on tele today. Pt reports "feeling my heart pound in my head" during the event. No chest pain, syncope, or pre- syncope. Pt denies SOB but is notably on 10L O2. Objective Vital Signs Temp Pulse Pulse Pulse Resp Resp BP 11/21/21 14:07 71 29 H 118/44 11/21/21 14:05 70 24 118/44 11/21/21 14:03 70 17 118/44 11/21/21 14:01 71 29 H 118/44 11/21/21 14:00 70 25 H 118/44 11/21/21 13:59 71 27 H 126/51 11/21/21 13:57 74 30 H 126/51 11/21/21 13:55 75 32 H 126/51 11/21/21 13:53 100 H 16 126/51 11/21/21 13:51 75 11 L 126/51 11/21/21 13:49 76 27 H 126/51 11/21/21 13:47 77 22 126/51 11/21/21 13:45 82 15 126/51 11/21/21 13:43 77 15 79/57 11/21/21 13:41 77 11 L 79/57 11/21/21 13:39 82 15 79/57 11/21/21 13:37 86 17 79/57 11/21/21 13:35 75 16 79/57 11/21/21 13:33 77 15 79/57 11/21/21 13:32 81 19 79/57 11/21/21 13:31 79 15 79/57 11/21/21 13:29 80 12 116/48 11/21/21 13:27 83 13 116/48 11/21/21 13:25 91 H 15 116/48 11/21/21 13:23 76 11 L 116/48 11/21/21 13:21 78 17 116/48 11/21/21 13:19 79 9 L 116/48 11/21/21 13:17 75 9 L 116/48 11/21/21 13:15 75 14 116/48 11/21/21 13:13 77 37 H 139/100 11/21/21 13:11 76 21 139/100 11/21/21 13:09 80 19 139/100 11/21/21 13:07 80 18 139/100 11/21/21 13:05 79 9 L 139/100 11/21/21 13:03 80 10 L 139/100 11/21/21 13:01 83 14 139/100 11/21/21 13:00 94 H 23 139/100 11/21/21 12:59 86 20 121/75 11/21/21 12:57 81 12 121/75 11/21/21 12:55 90 15 125/53 11/21/21 12:53 87 18 125/53 11/21/21 12:51 83 12 125/53 11/21/21 12:49 86 10 L 125/53 11/21/21 12:47 88 13 125/53 11/21/21 12:46 89 12 125/53 11/21/21 12:45 85 13 125/53 11/21/21 12:43 88 11 L 129/75 11/21/21 12:41 88 16 129/75 11/21/21 12:39 86 13 129/75 11/21/21 12:37 82 10 L 129/75 11/21/21 12:19 100 H 19 121/75 11/21/21 12:17 101 H 20 121/75 11/21/21 12:15 98 H 28 H 121/75 11/21/21 12:13 99 H 22 11/21/21 12:00 97.8 F 99 H 14 11/21/21 11:52 82 10 L 117/44 11/21/21 11:47 68 26 H 117/44 11/21/21 11:45 63 21 117/44 11/21/21 11:43 62 20 93/71 11/21/21 11:41 69 20 93/71 11/21/21 11:39 66 25 H 93/71 11/21/21 11:37 65 24 93/71 11/21/21 11:35 64 24 93/71 11/21/21 11:33 69 30 H 93/71 11/21/21 11:31 76 9 L 93/71 11/21/21 11:30 75 10 L 93/71 11/21/21 11:29 69 9 L 118/46 11/21/21 11:27 79 22 118/46 11/21/21 11:25 77 24 118/46 11/21/21 11:23 72 30 H 118/46 11/21/21 11:21 62 22 118/46 11/21/21 11:19 68 19 118/46 11/21/21 11:17 65 23 118/46 11/21/21 11:15 64 26 H 118/46 11/21/21 11:13 65 22 127/52 11/21/21 11:11 65 22 127/52 11/21/21 11:09 70 24 127/52 11/21/21 11:07 67 27 H 127/52 11/21/21 11:05 75 29 H 127/52 11/21/21 11:03 74 16 127/52 11/21/21 11:02 69 20 127/52 11/21/21 11:01 66 25 H 101/34 11/21/21 10:59 68 30 H 115/47 11/21/21 10:57 71 33 H 115/47 11/21/21 10:55 77 17 115/47 11/21/21 10:53 91 H 20 115/47 11/21/21 10:51 73 26 H 115/47 11/21/21 10:49 65 24 115/47 11/21/21 10:47 70 13 115/47 11/21/21 10:46 67 29 H 115/47 11/21/21 10:45 71 27 H 115/47 11/21/21 10:43 69 20 104/36 11/21/21 10:41 69 27 H 104/36 11/21/21 10:39 68 25 H 104/36 11/21/21 10:37 80 17 104/36 11/21/21 10:35 66 28 H 104/36 11/21/21 10:33 86 21 119/12 11/21/21 10:31 67 12 119/12 11/21/21 10:29 75 24 105/41 11/21/21 10:27 68 30 H 105/41 11/21/21 10:25 69 20 105/41 11/21/21 10:23 78 20 105/41 11/21/21 10:21 69 25 H 105/41 11/21/21 10:19 72 16 105/41 11/21/21 10:18 75 9 L 105/41 11/21/21 10:17 71 23 109/38 11/21/21 10:16 76 25 H 106/39 11/21/21 10:15 74 26 H 106/39 11/21/21 10:13 76 31 H 96/39 11/21/21 10:11 76 20 96/39 11/21/21 10:09 80 10 L 96/39 11/21/21 10:07 67 21 96/39 11/21/21 10:00 68 26 H 96/39 11/21/21 09:51 77 10 L 120/54 11/21/21 09:41 77 14 120/54 11/21/21 09:31 82 12 131/61 11/21/21 09:21 87 11 L 131/61 11/21/21 09:11 86 14 125/52 11/21/21 09:00 74 27 H 125/52 11/21/21 08:51 75 27 H 129/59 11/21/21 08:41 72 18 137/64 11/21/21 08:36 11/21/21 08:33 11/21/21 08:32 82 24 11/21/21 08:30 81 32 H 137/64 11/21/21 08:21 70 21 118/62 11/21/21 08:11 69 20 127/58 11/21/21 08:00 67 20 127/58 11/21/21 07:51 66 24 115/55 11/21/21 07:41 69 21 125/60 11/21/21 07:34 98.5 F 75 28 H 11/21/21 07:31 93 H 15 125/60 11/21/21 07:21 79 16 125/60 11/21/21 07:11 65 27 H 111/34 11/21/21 07:00 66 24 111/34 11/21/21 06:51 75 24 109/35 11/21/21 06:41 71 26 H 98/45 11/21/21 06:30 72 23 98/45 11/21/21 06:21 72 21 116/54 11/21/21 06:11 74 23 110/48 11/21/21 06:00 74 22 110/48 11/21/21 05:51 72 22 111/49 11/21/21 05:42 78 110/48 11/21/21 05:41 78 22 110/48 11/21/21 05:30 81 26 H 110/48 11/21/21 05:21 93 H 24 127/65 11/21/21 05:11 83 25 H 127/58 11/21/21 05:00 87 22 127/58 11/21/21 04:51 83 20 111/59 11/21/21 04:41 85 23 125/62 11/21/21 04:30 89 23 119/59 11/21/21 04:20 88 23 125/62 11/21/21 04:10 85 24 125/65 11/21/21 04:00 98.6 F 87 148 H 20 125/65 11/21/21 03:50 90 23 126/69 11/21/21 03:40 130 H 37 H 113/64 11/21/21 03:30 148 H 17 113/64 11/21/21 03:28 152 H 19 11/21/21 03:06 127 H 11/21/21 03:00 179 H 11/20/21 23:27 98.0 F 101 H 22 158/91 11/20/21 22:26 11/20/21 22:00 09/16/22 21:00 98 H 108/57 11/20/21 20:53 74 74 26 H 26 H 11/20/21 19:59 97.8 F 100 H 19 108/57 11/20/21 16:34 98.0 F 92 H 19 122/54 11/20/21 15:48 76 132/47 BP Pulse Ox 11/21/21 14:07 91 11/21/21 14:05 89 11/21/21 14:03 90 11/21/21 14:01 90 11/21/21 14:00 93 11/21/21 13:59 90 11/21/21 13:57 11/21/21 13:55 11/21/21 13:53 94 11/21/21 13:51 97 11/21/21 13:49 95 11/21/21 13:47 94 11/21/21 13:45 90 11/21/21 13:43 93 11/21/21 13:41 94 11/21/21 13:39 94 11/21/21 13:37 91 11/21/21 13:35 92 11/21/21 13:33 92 11/21/21 13:32 91 11/21/21 13:31 91 11/21/21 13:29 68 L 11/21/21 13:27 92 11/21/21 13:25 92 11/21/21 13:23 94 11/21/21 13:21 94 11/21/21 13:19 95 11/21/21 13:17 11/21/21 13:15 11/21/21 13:13 95 11/21/21 13:11 95 11/21/21 13:09 94 11/21/21 13:07 95 11/21/21 13:05 95 11/21/21 13:03 89 11/21/21 13:01 95 11/21/21 13:00 96 11/21/21 12:59 96 11/21/21 12:57 96 11/21/21 12:55 97 11/21/21 12:53 94 11/21/21 12:51 95 11/21/21 12:49 95 11/21/21 12:47 94 11/21/21 12:46 95 11/21/21 12:45 95 11/21/21 12:43 95 11/21/21 12:41 95 11/21/21 12:39 93 11/21/21 12:37 93 11/21/21 12:19 96 11/21/21 12:17 94 11/21/21 12:15 95 11/21/21 12:13 96 11/21/21 12:00 96 11/21/21 11:52 95 11/21/21 11:47 93 11/21/21 11:45 94 11/21/21 11:43 96 11/21/21 11:41 94 11/21/21 11:39 93 11/21/21 11:37 92 11/21/21 11:35 94 11/21/21 11:33 92 11/21/21 11:31 94 11/21/21 11:30 96 11/21/21 11:29 91 11/21/21 11:27 11/21/21 11:25 92 11/21/21 11:23 94 11/21/21 11:21 95 11/21/21 11:19 94 11/21/21 11:17 94 11/21/21 11:15 94 11/21/21 11:13 94 11/21/21 11:11 94 11/21/21 11:09 93 11/21/21 11:07 11/21/21 11:05 11/21/21 11:03 92 11/21/21 11:02 93 11/21/21 11:01 93 11/21/21 10:59 90 11/21/21 10:57 92 11/21/21 10:55 93 11/21/21 10:53 95 11/21/21 10:51 94 11/21/21 10:49 92 11/21/21 10:47 95 11/21/21 10:46 91 11/21/21 10:45 93 11/21/21 10:43 94 11/21/21 10:41 97 11/21/21 10:39 92 11/21/21 10:37 92 11/21/21 10:35 94 11/21/21 10:33 96 11/21/21 10:31 92 11/21/21 10:29 92 11/21/21 10:27 94 11/21/21 10:25 93 11/21/21 10:23 92 11/21/21 10:21 93 11/21/21 10:19 92 11/21/21 10:18 92 11/21/21 10:17 92 11/21/21 10:16 93 11/21/21 10:15 93 11/21/21 10:13 93 11/21/21 10:11 94 11/21/21 10:09 95 11/21/21 10:07 97 11/21/21 10:00 93 11/21/21 09:51 91 11/21/21 09:41 91 11/21/21 09:31 92 11/21/21 09:21 92 11/21/21 09:11 93 11/21/21 09:00 97 11/21/21 08:51 99 11/21/21 08:41 100 11/21/21 08:36 99 11/21/21 08:33 98 11/21/21 08:32 11/21/21 08:30 95 11/21/21 08:21 98 11/21/21 08:11 98 11/21/21 08:00 98 11/21/21 07:51 98 11/21/21 07:41 96 11/21/21 07:34 93 11/21/21 07:31 91 11/21/21 07:21 96 11/21/21 07:11 96 11/21/21 07:00 92 11/21/21 06:51 80 L 11/21/21 06:41 86 11/21/21 06:30 100 11/21/21 06:21 94 11/21/21 06:11 96 11/21/21 06:00 96 11/21/21 05:51 95 11/21/21 05:42 11/21/21 05:41 95 11/21/21 05:30 94 11/21/21 05:21 88 11/21/21 05:11 97 11/21/21 05:00 97 11/21/21 04:51 97 11/21/21 04:41 96 11/21/21 04:30 96 11/21/21 04:20 97 11/21/21 04:10 97 11/21/21 04:00 92 11/21/21 03:50 92 11/21/21 03:40 91 11/21/21 03:30 88 11/21/21 03:28 11/21/21 03:06 152/97 92 11/21/21 03:00 131/70 90 11/20/21 23:27 87 11/20/21 22:26 91 11/20/21 22:00 92 11/20/21 21:00 11/20/21 20:53 91 11/20/21 19:59 92 11/20/21 16:34 85 11/20/21 15:48 - Physical Examination General: No Apparent Distress HEENT: Positive: EOMI, Normocephaly Neck: Negative: JVD/HJR Cardiac: Positive: Reg Rate and Rhythm, S1/S2 Lungs: Positive: Decreased Breath Sounds, Rhonchi Neuro: Positive: Grossly Intact Abdomen: Positive: Soft Skin: Negative: Rash Extremities: Present: +2 Edema, warm - Labs and Meds CBC 11/21/21 Range/Units 08:20 WBC 8.5 (4.5-11.0) K/mm3 RBC 4.31 (3.65-5.03) M/mm3 Hgb 13.0 (11.8-15.2) gm/dl Hct 40.7 (35.5-45.6) % Plt Count 206 (140-440) K/mm3 Comprehensive Metabolic Panel 11/21/21 Range/Units 08:20 Sodium 139 (137-145) mmol/L Potassium 3.9 (3.6-5.0) mmol/L Chloride 93.6 L (98-107) mmol/L Carbon Dioxide 40 H (22-30) mmol/L BUN 10 (9-20) mg/dL Creatinine 0.8 (0.8-1.3) mg/dL Glucose 167 H (75-100) mg/dL Calcium 8.6 (8.4-10.2) mg/dL - Imaging and Cardiology EKG: report reviewed, image reviewed Echo: report reviewed - Telemetry EKG Rhythm: Sinus Rhythm - EKG Sinus rhythms and dysrhythmias: sinus tachycardia Repolarization changes or abnormalities: nonspecific abnormality, ST segment, and/or T wave - Allied health notes Allied health notes reviewed: nursing
[2021-11-21] MEDS: FUROSEMIDE 20 MG/2 ML INJ IV SCH (17:18)
[2021-11-21] MEDS ORDERED: traZODone 50 MG TAB PO PRN (22:00)
[2021-11-21] MEDS: FAMOTIDINE 20 MG TAB PO SCH (22:13)
[2021-11-21] MEDS: MELATONIN 5 MG TAB PO SCH (22:14)
[2021-11-22] MEDS: VERAPAMIL 80 MG TAB PO SCH ×3 (06:56→21:27)
[2021-11-22] MEDS: FUROSEMIDE 20 MG/2 ML INJ IV SCH ×2 (06:56→17:07)
--- NOTE | 2021-11-22 09:57 | Progress Note ---
Assessment and Plan Assessment and plan: This is a 76-year-old male with known past medical history of HTN, DM, morbid obesity, and bipolar disorder initially admitted to the floor for acute hypoxic and hypercapnic respiratory failure. Patient was transferred to the ICU overnight on 11/21 due to SVT, HR in the 170, unresponsive to IV adenosine. ICU Course to Date: 11/21: Patient was placed on cardizem gtt in the ICU. Patient converted to SR, HR in the 70-80s. Cardizem gtt is off this morning, VSS. Low dose BB added, Cardiology reconsulted. Continue PO lasix, stat labs ordered. Wean O2 supplementation as tolerated for SPO2 above 88%, Bipap at night. Pulmonary is also following. If patient remains stable by this afternoon, okay to transfer to [facility]. 11/22: Patient seen and examined, continue support care, 6L salter, denied any pain nor any discomfort at this time. Off cardizem gtt and back to SR this time. Will transfer to Telemetry floor, Continue diuresis and anticipte discharge in a day or two Assessment and Plan #Supraventricular Tachycardia (SVT) #CHF (Congestive Heart Failure) with Preserved EF #Hypertension - Code met overnight due to SVT, HR in the 170 s/p X3 dose of adenosine with no response - S/p Cardizem gtt, Converted to SR - Low dose BB added. patient remains on ASA, PO lasix, HTZ, and Verapamil - Cardiology reconsulted - Continue blood pressure monitor per protocol - Maintain MAP above 65 - Strict and I&Os and Daily weight - Close monitoring of renal function, stat labs pending #Acute Hypoxic and Hypercapneic Respiratory Failure #Pneumonia with Mixed Bacteria and COPD Exacerbation #Obesity Hypoventilation Syndrome - Currently on 10L [place] - Completed X5days course of IV Antiobiotics - Pulmonary is following - Continue gentle diurese and Nebx treatment per Pulmo - Bipap at night - Continue O2 supplementation and wean as tolerated - Continue SPO2 monitoring for SPO2 goal above 92% - Weight loss and increase physical activity discharge - Follow up with Pulmonary outpatient for PFT and sleep apnea eval #Type 2 Diabetes Mellitus - Consistent carbohydrate diet - BG check and SSI ACHS - Avoid Hypoglycemia - Hypoglycemic protocol #Bipolar Disorder - Continue supportive measures - Home meds resumed #GI/DVT Prophylaxis - PPI- Pepcid - SCD to bilateral lower extremities while in bed #Advance Care Planning - Disease education data, care plan, diagnoses, and prognosis were discussed with the patient at the bedside. Patient is a FULL code. Patient acknowledged understanding and agreed with current care plan. History Interval history: Patient seen and examined today, resting comfortable, no new complaints. Discussed importance of weight loss. Hospitalist Physical - Physical exam Narrative exam: General appearance: Present: no acute distress, well-nourished, obese - EENT Eyes: Present: PERRL, EOM intact ENT: hearing intact - Neck Neck: Present: normal ROM - Respiratory Respiratory effort: normal Respiratory: bilateral: diminished - Cardiovascular Rhythm: regular Heart Sounds: Present: S1 & S2 - Extremities Extremities: no ischemia, pulses intact, pulses symmetrical Extremity abnormal: edema, erythema (BLE swelling and discoloration) - Peripheral Assessment Bilateral Lower Extremity Edema Type: Pitting Edema Degree: 3+ Capillary Refill: < 3 seconds Skin Temperature: Warm Generalized Edema Type: Non-pitting Edema Degree: 3+ Capillary Refill: < 3 seconds Skin Temperature: Warm Peripheral Pulses: within normal limits - Abdominal General gastrointestinal: soft, non-distended, normal bowel sounds, other (Obese) - Integumentary Integumentary: Present: warm, dry, erythema (BLE) - Psychiatric Psychiatric: appropriate mood/affect, cooperative - Neurologic Neurologic: CNII-XII intact, moves all extremities - Allied Health Allied health notes reviewed: nursing, case management - Constitutional Vitals: Temp Pulse Resp BP Pulse Ox 99.9 F H 67 16 124/61 85 11/22/21 07:22 11/22/21 08:10 11/22/21 08:00 11/22/21 08:00 11/22/21 08:00 General appearance: Present: no acute distress, well-nourished, obese HEART Score - HEART Score Troponin: Troponin T < 0.010 ng/mL (0.00-0.029) 11/16/21 19:31 Results - Labs CBC & Chem 7: 11/21/21 08:20 11/21/21 08:20 Labs: Laboratory Last Values WBC 8.5 K/mm3 (4.5-11.0) 11/21/21 08:20 RBC 4.31 M/mm3 (3.65-5.03) 11/21/21 08:20 Hgb 13.0 gm/dl (11.8-15.2) 11/21/21 08:20 Hct 40.7 % (35.5-45.6) 11/21/21 08:20 MCV 94 fl (84-94) 11/21/21 08:20 MCH 30 pg (28-32) 11/21/21 08:20 MCHC 32 % (32-34) 11/21/21 08:20 RDW 16.3 % (13.2-15.2) H 11/21/21 08:20 Plt Count 206 K/mm3 (140-440) 11/21/21 08:20 Add Manual Diff Complete 11/17/21 08:28 Total Counted 100 11/17/21 08:28 Seg Neuts % (Manual) 88.0 % (40.0-70.0) H 11/17/21 08:28 Band Neutrophils % 2.0 % 11/17/21 08:28 Lymphocytes % (Manual) 6.0 % (13.4-35.0) L 11/17/21 08:28 Reactive Lymphs % (Man) 0 % 11/17/21 08:28 Monocytes % (Manual) 4.0 % (0.0-7.3) 11/17/21 08:28 Eosinophils % (Manual) 0 % (0.0-4.3) 11/17/21 08:28 Basophils % (Manual) 0 % (0.0-1.8) 11/17/21 08:28 Metamyelocytes % 0 % 11/17/21 08:28 Myelocytes % 0 % 11/17/21 08:28 Promyelocytes % 0 % 11/17/21 08:28 Blast Cells % 0 % 11/17/21 08:28 Nucleated RBC % Not Reportable 11/17/21 08:28 Seg Neutrophils # Man 13.1 K/mm3 (1.8-7.7) H 11/17/21 08:28 Band Neutrophils # 0.3 K/mm3 11/17/21 08:28 Lymphocytes # (Manual) 0.9 K/mm3 (1.2-5.4) L 11/17/21 08:28 Abs React Lymphs (Man) 0.0 K/mm3 11/17/21 08:28 Monocytes # (Manual) 0.6 K/mm3 (0.0-0.8) 11/17/21 08:28 Eosinophils # (Manual) 0.0 K/mm3 (0.0-0.4) 11/17/21 08:28 Basophils # (Manual) 0.0 K/mm3 (0.0-0.1) 11/17/21 08:28 Metamyelocytes # 0.0 K/mm3 11/17/21 08:28 Myelocytes # 0.0 K/mm3 11/17/21 08:28 Promyelocytes # 0.0 K/mm3 11/17/21 08:28 Blast Cells # 0.0 K/mm3 11/17/21 08:28 WBC Morphology Not Reportable 11/17/21 08:28 Hypersegmented Neuts Not Reportable 11/17/21 08:28 Hyposegmented Neuts Not Reportable 11/17/21 08:28 Hypogranular Neuts Not Reportable 11/17/21 08:28 Smudge Cells Not Reportable 11/17/21 08:28 Toxic Granulation Not Reportable 11/17/21 08:28 Toxic Vacuolation Not Reportable 11/17/21 08:28 Dohle Bodies Not Reportable 11/17/21 08:28 Pelger-Huet Anomaly Not Reportable 11/17/21 08:28 Riya Rods Not Reportable 11/17/21 08:28 Platelet Estimate Consistent w auto 11/17/21 08:28 Clumped Platelets Not Reportable 11/17/21 08:28 Plt Clumps, EDTA Not Reportable 11/17/21 08:28 Large Platelets Not Reportable 11/17/21 08:28 Giant Platelets Not Reportable 11/17/21 08:28 Platelet Satelliting Not Reportable 11/17/21 08:28 Plt Morphology Comment Not Reportable 11/17/21 08:28 RBC Morphology Normal 11/17/21 08:28 Dimorphic RBCs Not Reportable 11/17/21 08:28 Polychromasia Not Reportable 11/17/21 08:28 Hypochromasia Not Reportable 11/17/21 08:28 Poikilocytosis Not Reportable 11/17/21 08:28 Anisocytosis Not Reportable 11/17/21 08:28 Microcytosis Not Reportable 11/17/21 08:28 Macrocytosis Not Reportable 11/17/21 08:28 Spherocytes Not Reportable 11/17/21 08:28 Pappenheimer Bodies Not Reportable 11/17/21 08:28 Sickle Cells Not Reportable 11/17/21 08:28 Target Cells Not Reportable 11/17/21 08:28 Tear Drop Cells Not Reportable 11/17/21 08:28 Ovalocytes Not Reportable 11/17/21 08:28 Stomatocytes 1+ 11/16/21 15:30 Helmet Cells Not Reportable 11/17/21 08:28 [place] Bodies Not Reportable 11/17/21 08:28 [place] Rings Not Reportable 11/17/21 08:28 Faviola Cells Not Reportable 11/17/21 08:28 Bite Cells Not Reportable 11/17/21 08:28 Crenated Cell Not Reportable 11/17/21 08:28 Elliptocytes Not Reportable 11/17/21 08:28 Acanthocytes (Spur) Not Reportable 11/17/21 08:28 Rouleaux Not Reportable 11/17/21 08:28 Hemoglobin C Crystals Not Reportable 11/17/21 08:28 Schistocytes Not Reportable 11/17/21 08:28 Malaria parasites Not Reportable 11/17/21 08:28 Miguel Bodies Not Reportable 11/17/21 08:28 Hem Pathologist Commnt No 11/17/21 08:28 PT 13.6 Sec. (12.2-14.9) 11/16/21 15:30 INR 0.92 (0.87-1.13) 11/16/21 15:30 APTT 30.4 Sec. (24.2-36.6) 11/16/21 15:30 ABG pH 7.390 pH Units (7.350-7.450) 11/17/21 15:10 ABG pCO2 64.4 mm Hg 11/17/21 15:10 ABG pO2 42.0 mm Hg (80.0-90.0) L 11/17/21 15:10 ABG HCO3 38.1 mmol/L (20.0-26.0) H 11/17/21 15:10 ABG O2 Saturation 80.5 % (95.0-99.0) L 11/17/21 15:10 ABG O2 Content 15.3 (0.0-44) 11/17/21 15:10 ABG Base Excess 10.5 mmol/L (-2.0-3.0) H 11/17/21 15:10 ABG Hemoglobin 13.9 gm/dl (14.0-18.0) L 11/17/21 15:10 ABG Carboxyhemoglobin 1.8 % (0.0-5.0) 11/17/21 15:10 ABG Methemoglobin 0.6 % (0.0-1.5) 11/17/21 15:10 Oxyhemoglobin 78.6 % (95.0-99.0) L 11/17/21 15:10 FiO2 21 % 11/17/21 15:10 Sodium 139 mmol/L (137-145) 11/21/21 08:20 Potassium 3.9 mmol/L (3.6-5.0) 11/21/21 08:20 Chloride 93.6 mmol/L (98-107) L 11/21/21 08:20 Carbon Dioxide 40 mmol/L (22-30) H 11/21/21 08:20 Anion Gap 9 mmol/L 11/21/21 08:20 BUN 10 mg/dL (9-20) 11/21/21 08:20 Creatinine 0.8 mg/dL (0.8-1.3) 11/21/21 08:20 Estimated GFR > 60 ml/min 11/21/21 08:20 BUN/Creatinine Ratio 13 % 11/21/21 08:20 Glucose 167 mg/dL (75-100) H 11/21/21 08:20 POC Glucose 130 mg/dL (70-105) H 11/22/21 07:44 Calcium 8.6 mg/dL (8.4-10.2) 11/21/21 08:20 Phosphorus 3.50 mg/dL (2.5-4.5) 11/21/21 08:20 Magnesium 2.00 mg/dL (1.7-2.3) 11/21/21 08:20 Total Bilirubin 0.20 mg/dL (0.1-1.2) 11/16/21 15:30 AST 54 units/L (5-40) H 11/16/21 15:30 ALT 43 units/L (7-56) 11/16/21 15:30 Alkaline Phosphatase 79 units/L (35-129) 11/16/21 15:30 Troponin T < 0.010 ng/mL (0.00-0.029) 11/16/21 19:31 NT-Pro-B Natriuret Pep 3063 pg/mL (0-900) H 11/16/21 15:30 Total Protein 6.5 g/dL (6.3-8.2) 11/16/21 15:30 Albumin 3.5 g/dL (3.9-5) L 11/16/21 15:30 Albumin/Globulin Ratio 1.2 % 11/16/21 15:30 Microbiology: Microbiology 11/16/21 15:30 Peripheral/Venous Blood Culture - Final NO GROWTH AFTER 5 DAYS 11/16/21 15:30 Peripheral/Venous Blood Culture - Final NO GROWTH AFTER 5 DAYS [place]/IV: Voiding Method Condom Catheter Active Medications - Current Medications Current Medications: Generic Name Dose Route Start Last Admin Trade Name Freq PRN Reason Stop Dose Admin Acetaminophen 650 mg 11/16/21 17:41 Acetaminophen 325 Mg Tab PO Q4H PRN Pain MILD(1-3)/Fever >100.5/VILLELA Albuterol 2.5 mg 11/16/21 17:41 Albuterol 2.5 Mg/3 Ml Nebu IH Q4HRT PRN Shortness Of Breath Arformoterol Tartrate 15 mcg 11/18/21 20:00 11/21/21 21:58 Arformoterol 15 Mcg/2 Ml Nebu IH 15 mcg Q12HRT JENNIFER Administration Aspirin 81 mg 11/17/21 10:00 11/21/21 09:36 Aspirin Ec 81 Mg Tab PO 81 mg QDAY JENNIFER Administration Budesonide 0.5 mg 11/18/21 20:00 11/21/21 21:58 Budesonide 0.5 Mg/2 Ml Nebu IH 0.5 mg Q12HRT JENNIFER Administration Buspirone HCl 30 mg 11/16/21 22:00 11/21/21 22:14 Buspirone 10 Mg Tab PO 30 mg BID JENNIFER Administration Dextrose 50 ml 11/21/21 11:30 Dextrose 50% In Water (25gm) 50 Ml Syringe IV Q30MIN PRN Hypoglycemia Protocol Famotidine 20 mg 11/21/21 22:00 11/21/21 22:13 Famotidine 20 Mg Tab PO 20 mg QHS JENNIFER Administration Furosemide 20 mg 11/21/21 18:00 11/22/21 06:56 Furosemide 20 Mg/2 Ml Inj IV 20 mg 0600,1800 JENNIFER Administration Hydromorphone HCl 0.5 mg 11/16/21 17:41 Hydromorphone 0.5 Mg/0.5 Ml Inj IV Q13H PRN Pain , Severe (7-10) Insulin Human Lispro 0 unit 11/21/21 11:30 11/21/21 22:21 Insulin Lispro 100 Unit/Ml SUB-Q 1 unit ACHS JENNIFER Administration Protocol Melatonin 5 mg 11/21/21 22:00 11/21/21 22:14 Melatonin 5 Mg Tab PO 5 mg QHS JENNIFER Administration Methocarbamol 500 mg 11/16/21 17:44 11/21/21 22:14 Methocarbamol 500 Mg Tab PO 500 mg BID PRN Administration Muscle Spasm Metoprolol Tartrate 12.5 mg 11/21/21 10:00 11/21/21 22:15 Metoprolol Tartrate 25 Mg Tab PO 12.5 mg BID JENNIFER Administration Ondansetron HCl 4 mg 11/16/21 17:41 Ondansetron 4 Mg/2 Ml Inj IV Q8H PRN Nausea And Vomiting Oxycodone/Acetaminophen 1 tab 11/16/21 17:41 11/17/21 20:58 Oxycodone /Acetaminophen 5-325mg Tab PO 1 tab Q6H PRN Administration Pain, Moderate (4-6) Sodium Chloride 10 ml 11/16/21 22:00 11/21/21 22:16 Sodium Chloride 0.9% 10 Ml Flush Syringe IV 10 ml BID JENNIFER Administration Sodium Chloride 10 ml 11/16/21 17:41 Sodium Chloride 0.9% 10 Ml Flush Syringe IV PRN PRN LINE FLUSH Trazodone HCl 50 mg 11/21/21 22:00 11/21/21 22:14 Trazodone 50 Mg Tab PO 50 mg QHS PRN Administration Insomnia Verapamil HCl 80 mg 11/17/21 14:00 11/22/21 06:56 Verapamil 80 Mg Tab PO 80 mg Q8HR JENNIFER Administration Nutrition/Malnutrition Assess - Dietary Evaluation Nutrition/Malnutrition Findings: Nutrition Notes Start: 11/21/21 13:21 Freq: Status: Active Protocol: Document 11/21/21 13:21 TW (Rec: 11/21/21 13:25 TW [id number]) Nutrition Notes Need for Assessment generated from: MD Order,Education Initial or Follow up Brief Note Current Diagnosis Diabetes,Hypertension,Heart Failure Other Pertinent Diagnosis vascular dementia, cerebral atherosclerosis, metbaolic syndrome Current Diet Cardiac Labs/Tests Glucose:167 Pertinent Medications D50w 50ml [id number] Height 5 ft 8 in Weight 161 kg Parachute Body Weight (kg) 70.00 BMI 53.9 Weight Status Morbidly Obese Subjective/Other Information RD consulted for diet education. Pt presents with weakness, difficulty breathing , leg edema. HX of metabolic syndrome, obesity hyperventilation, bipolar disorder. Ignacio score of 14. Pt not a candidate for diet education at this time. Burn Absent Trauma Absent Minimum of two criteria No Nutrition Intervention Anticipated Discharge Needs: Unable to identify at this time Follow-Up By: 11/23/21 Additional Comments F/U for PO intake, glucose levels, need for diet education
[2021-11-22] MEDS: ARFORMOTEROL 15 MCG/2 ML NEBU IH SCH ×2 (10:25→21:16)
[2021-11-22] MEDS: BUDESONIDE 0.5 MG/2 ML NEBU IH SCH ×2 (10:30→21:16)
[2021-11-22] MEDS: ASPIRIN EC 81 MG TAB PO SCH (10:50)
[2021-11-22] MEDS: METOPROLOL TARTRATE 25 MG TAB PO SCH ×3 (10:50→21:29)
[2021-11-22] MEDS: INSULIN LISPRO 100 UNIT/ML SUB-Q SCH ×4 (11:26→21:30)
[2021-11-22] MEDS: busPIRone 10 MG TAB PO SCH ×2 (11:58→21:30)
--- NOTE | 2021-11-22 12:37 | Progress Note ---
Assessment and Plan Assessment: Atrial Tachycardia vs Atrial Flutter (anticoagulation deferred d/t short duration) Acute Respiratory Failure Acute HFpEF Morbid Obesity/OHS/?BRAYAN ?COPD HTN DM2 H/o Tobacco Abuse Echo 11/16/2021: Technically difficult study. EF 50 to 55%. Right ventricular systolic function is normal. No aortic regurgitation is present. Mild mitral regurgitation noted. Plan: Continue IV diuresis for now. F/u BMP in AM. Increase Lopressor to 12.5mg TID. Continue Verapamil 80mg q8h. Pt seen in conjunction with Dr. Guerra, who agrees with the assessment and plan of care. - Patient Problems (1) Atrial tachycardia Current Visit: Yes Status: Acute (2) (HFpEF) heart failure with preserved ejection fraction Current Visit: Yes Status: Acute (3) Morbid obesity Current Visit: Yes Status: Chronic (4) Obesity hypoventilation syndrome Current Visit: Yes Status: Chronic Subjective Date of service: 11/22/21 Principal diagnosis: HFpEF Interval history: C/o brief episodes of palpitations overnight, which correlate with short runs of PAT on tele. Otherwise SR 70s. Objective Vital Signs Temp Pulse Pulse Pulse Resp Resp Resp 11/22/21 12:00 78 88 14 11/22/21 11:46 98.1 F 11/22/21 11:30 103 H 20 11/22/21 11:00 89 16 11/22/21 10:50 94 H 11/22/21 10:30 107 H 13 11/22/21 10:20 11/22/21 10:00 97 H 18 11/22/21 09:30 90 13 11/22/21 09:00 65 25 H 11/22/21 08:30 88 19 11/22/21 08:10 67 11/22/21 08:00 75 75 24 11/22/21 07:30 77 16 11/22/21 07:22 99.9 F H 11/22/21 07:00 70 22 11/22/21 06:56 78 11/22/21 06:30 66 24 11/22/21 06:00 67 25 H 11/22/21 05:30 80 17 11/22/21 05:00 67 27 H 11/22/21 04:30 65 26 H 11/22/21 04:05 66 11/22/21 04:00 98.3 F 68 68 27 H 11/22/21 03:30 78 32 H 11/22/21 03:00 88 16 11/22/21 02:30 67 24 11/22/21 02:00 64 27 H 11/22/21 01:30 66 31 H 11/22/21 01:00 68 12 11/22/21 00:30 65 29 H 11/22/21 00:25 65 11/22/21 00:01 70 31 H 11/22/21 00:00 99.4 F 11/21/21 23:31 79 13 11/21/21 23:00 81 18 11/21/21 22:31 89 14 11/21/21 22:15 83 11/21/21 22:13 85 11/21/21 22:01 88 34 H 11/21/21 22:00 20 11/21/21 21:59 87 22 11/21/21 21:31 73 25 H 11/21/21 21:00 84 13 11/21/21 20:31 85 13 11/21/21 20:30 80 11/21/21 20:00 98.2 F 23 11/21/21 19:31 85 12 11/21/21 19:23 93 H 10 L 11/21/21 19:21 86 12 11/21/21 19:19 87 15 11/21/21 19:17 86 26 H 11/21/21 19:15 87 10 L 11/21/21 19:13 87 20 11/21/21 19:11 85 17 11/21/21 19:09 86 14 11/21/21 19:07 88 17 11/21/21 19:05 87 10 L 11/21/21 19:03 86 16 11/21/21 19:01 86 17 11/21/21 19:00 87 18 11/21/21 18:59 87 32 H 11/21/21 18:57 94 H 17 11/21/21 18:55 85 34 H 11/21/21 18:53 84 33 H 11/21/21 18:51 89 25 H 11/21/21 18:49 82 24 11/21/21 18:47 95 H 18 11/21/21 18:45 103 H 24 11/21/21 18:43 92 H 15 11/21/21 18:41 73 26 H 11/21/21 18:39 75 27 H 11/21/21 18:37 75 25 H 11/21/21 18:35 79 28 H 11/21/21 18:33 79 26 H 11/21/21 18:31 78 28 H 11/21/21 18:29 80 29 H 11/21/21 18:27 79 26 H 11/21/21 18:25 82 32 H 11/21/21 18:23 83 30 H 11/21/21 18:21 83 30 H 11/21/21 18:19 86 34 H 11/21/21 18:17 86 35 H 11/21/21 18:15 87 21 11/21/21 18:13 14 11/21/21 18:11 89 13 11/21/21 18:09 96 H 15 11/21/21 18:07 98 H 12 11/21/21 18:05 90 13 11/21/21 18:03 90 14 11/21/21 18:01 91 H 16 11/21/21 18:00 92 H 17 11/21/21 17:59 91 H 25 H 11/21/21 17:57 89 23 11/21/21 17:55 96 H 14 11/21/21 17:53 95 H 24 11/21/21 17:51 109 H 20 11/21/21 17:49 106 H 16 11/21/21 17:47 101 H 17 11/21/21 16:00 98 F 90 14 11/21/21 15:21 75 11/21/21 15:19 76 18 11/21/21 15:17 79 16 11/21/21 15:15 77 13 11/21/21 15:13 83 17 11/21/21 15:11 85 13 11/21/21 15:09 74 16 11/21/21 15:07 71 17 11/21/21 15:05 74 11 L 11/21/21 15:03 75 13 11/21/21 15:01 87 16 11/21/21 14:59 76 14 11/21/21 14:57 82 13 11/21/21 14:55 84 13 11/21/21 14:53 85 12 11/21/21 14:51 88 11 L 11/21/21 14:49 83 11 L 11/21/21 14:47 85 11 L 11/21/21 14:46 89 14 11/21/21 14:45 78 13 11/21/21 14:43 83 11 L 11/21/21 14:41 89 18 11/21/21 14:39 65 21 11/21/21 14:37 65 21 11/21/21 14:35 62 24 11/21/21 14:33 69 23 11/21/21 14:31 67 22 11/21/21 14:30 67 24 11/21/21 14:29 67 22 11/21/21 14:27 64 20 11/21/21 14:25 67 21 11/21/21 14:23 66 22 11/21/21 14:21 67 22 11/21/21 14:19 69 26 H 11/21/21 14:17 78 18 11/21/21 14:15 71 29 H 11/21/21 14:14 69 11/21/21 14:13 70 28 H 11/21/21 14:11 69 26 H 11/21/21 14:09 69 25 H 11/21/21 14:07 71 29 H 11/21/21 14:05 70 24 11/21/21 14:03 70 17 11/21/21 14:01 71 29 H 11/21/21 14:00 70 25 H 11/21/21 13:59 71 27 H 11/21/21 13:57 74 30 H 11/21/21 13:55 75 32 H 11/21/21 13:53 100 H 16 11/21/21 13:51 75 11 L 11/21/21 13:49 76 27 H 11/21/21 13:47 77 22 11/21/21 13:45 82 15 11/21/21 13:43 77 15 11/21/21 13:41 77 11 L 11/21/21 13:39 82 15 11/21/21 13:37 86 17 11/21/21 13:35 75 16 11/21/21 13:33 77 15 11/21/21 13:32 81 19 11/21/21 13:31 79 15 11/21/21 13:29 80 12 11/21/21 13:27 83 13 11/21/21 13:25 91 H 15 11/21/21 13:23 76 11 L 11/21/21 13:21 78 17 11/21/21 13:19 79 9 L 11/21/21 13:17 75 9 L 11/21/21 13:15 75 14 11/21/21 13:13 77 37 H 11/21/21 13:11 76 21 11/21/21 13:09 80 19 11/21/21 13:07 80 18 11/21/21 13:05 79 9 L 11/21/21 13:03 80 10 L 11/21/21 13:01 83 14 11/21/21 13:00 94 H 23 11/21/21 12:59 86 20 11/21/21 12:57 81 12 11/21/21 12:55 90 15 11/21/21 12:53 87 18 11/21/21 12:51 83 12 11/21/21 12:49 86 10 L 11/21/21 12:47 88 13 11/21/21 12:46 89 12 11/21/21 12:45 85 13 11/21/21 12:43 88 11 L 11/21/21 12:41 88 16 11/21/21 12:39 86 13 11/21/21 12:37 82 10 L BP Pulse Ox 11/22/21 12:00 143/69 91 11/22/21 11:46 11/22/21 11:30 121/69 94 11/22/21 11:00 121/69 95 11/22/21 10:50 138/76 11/22/21 10:30 138/76 96 11/22/21 10:20 99 11/22/21 10:00 138/76 91 11/22/21 09:30 135/58 94 11/22/21 09:00 135/58 91 11/22/21 08:30 124/61 92 11/22/21 08:10 11/22/21 08:00 124/61 96 11/22/21 07:30 132/55 85 11/22/21 07:22 11/22/21 07:00 132/55 88 11/22/21 06:56 132/53 11/22/21 06:30 132/53 90 11/22/21 06:00 132/53 89 11/22/21 05:30 163/70 90 11/22/21 05:00 163/70 88 11/22/21 04:30 140/64 91 11/22/21 04:05 09/18/22 04:00 140/64 90 09/18/22 03:30 137/54 90 11/22/21 03:00 174/75 90 11/22/21 02:30 137/54 87 11/22/21 02:00 137/54 88 11/22/21 01:30 159/67 90 11/22/21 01:00 159/67 93 11/22/21 00:30 87 11/22/21 00:25 11/22/21 00:01 119/51 87 11/22/21 00:00 11/21/21 23:31 138/61 88 11/21/21 23:00 138/61 87 11/21/21 22:31 141/58 94 11/21/21 22:15 141/58 11/21/21 22:13 141/58 11/21/21 22:01 141/58 91 11/21/21 22:00 11/21/21 21:59 93 11/21/21 21:31 164/75 92 11/21/21 21:00 164/75 94 11/21/21 20:31 142/61 92 11/21/21 20:30 11/21/21 20:00 142/61 94 11/21/21 19:31 171/78 85 11/21/21 19:23 171/78 93 11/21/21 19:21 171/78 89 11/21/21 19:19 171/78 91 11/21/21 19:17 171/78 89 11/21/21 19:15 171/78 90 11/21/21 19:13 171/78 90 11/21/21 19:11 171/78 91 11/21/21 19:09 171/78 91 11/21/21 19:07 171/78 92 11/21/21 19:05 171/78 90 11/21/21 19:03 171/78 92 11/21/21 19:01 171/78 93 11/21/21 19:00 171/78 93 11/21/21 18:59 160/79 92 11/21/21 18:57 160/79 93 11/21/21 18:55 160/79 90 11/21/21 18:53 160/79 91 11/21/21 18:51 160/79 92 11/21/21 18:49 160/79 94 11/21/21 18:47 160/79 95 11/21/21 18:45 160/79 96 11/21/21 18:43 160/79 94 11/21/21 18:41 160/79 90 11/21/21 18:39 160/79 91 11/21/21 18:37 160/79 91 11/21/21 18:35 160/79 90 11/21/21 18:33 160/79 89 11/21/21 18:31 160/79 88 11/21/21 18:29 160/79 91 11/21/21 18:27 160/79 92 11/21/21 18:25 160/79 95 11/21/21 18:23 160/79 92 11/21/21 18:21 160/79 92 11/21/21 18:19 160/79 92 11/21/21 18:17 160/79 93 11/21/21 18:15 160/79 93 11/21/21 18:13 160/79 94 11/21/21 18:11 160/79 93 11/21/21 18:09 160/79 93 11/21/21 18:07 160/79 93 11/21/21 18:05 160/79 95 11/21/21 18:03 160/79 95 11/21/21 18:01 160/79 94 11/21/21 18:00 160/79 94 11/21/21 17:59 157/74 95 11/21/21 17:57 157/74 96 11/21/21 17:55 157/74 94 11/21/21 17:53 157/74 95 11/21/21 17:51 157/74 91 11/21/21 17:49 157/74 95 11/21/21 17:47 157/74 96 11/21/21 16:00 96 11/21/21 15:21 142/53 11/21/21 15:19 142/53 91 11/21/21 15:17 142/53 90 11/21/21 15:15 142/53 91 11/21/21 15:13 142/53 92 11/21/21 15:11 142/53 93 11/21/21 15:09 142/53 95 11/21/21 15:07 142/53 95 11/21/21 15:05 142/53 94 11/21/21 15:03 142/53 94 11/21/21 15:01 142/53 92 11/21/21 14:59 137/44 94 11/21/21 14:57 137/44 94 11/21/21 14:55 137/44 93 11/21/21 14:53 137/44 93 11/21/21 14:51 137/44 92 11/21/21 14:49 137/44 95 11/21/21 14:47 137/44 95 11/21/21 14:46 137/44 95 11/21/21 14:45 142/46 93 11/21/21 14:43 142/46 97 11/21/21 14:41 142/46 95 11/21/21 14:39 142/46 95 11/21/21 14:37 142/46 94 11/21/21 14:35 142/46 95 11/21/21 14:33 142/46 95 11/21/21 14:31 142/46 96 11/21/21 14:30 142/46 95 11/21/21 14:29 132/45 95 11/21/21 14:27 132/45 94 11/21/21 14:25 132/45 94 11/21/21 14:23 132/45 93 11/21/21 14:21 132/45 91 11/21/21 14:19 132/45 90 11/21/21 14:17 132/45 92 11/21/21 14:15 132/45 11/21/21 14:14 11/21/21 14:13 118/44 93 11/21/21 14:11 118/44 87 11/21/21 14:09 118/44 90 11/21/21 14:07 118/44 91 11/21/21 14:05 118/44 89 11/21/21 14:03 118/44 90 11/21/21 14:01 118/44 90 11/21/21 14:00 118/44 93 11/21/21 13:59 126/51 90 11/21/21 13:57 126/51 11/21/21 13:55 126/51 11/21/21 13:53 126/51 94 11/21/21 13:51 126/51 97 11/21/21 13:49 126/51 95 11/21/21 13:47 126/51 94 09/17/22 13:45 126/51 90 11/21/21 13:43 79/57 93 11/21/21 13:41 79/57 94 11/21/21 13:39 79/57 94 11/21/21 13:37 79/57 91 11/21/21 13:35 79/57 92 11/21/21 13:33 79/57 92 11/21/21 13:32 79/57 91 11/21/21 13:31 79/57 91 11/21/21 13:29 116/48 68 L 11/21/21 13:27 116/48 92 11/21/21 13:25 116/48 92 11/21/21 13:23 116/48 94 11/21/21 13:21 116/48 94 11/21/21 13:19 116/48 95 11/21/21 13:17 116/48 11/21/21 13:15 116/48 11/21/21 13:13 139/100 95 11/21/21 13:11 139/100 95 11/21/21 13:09 139/100 94 11/21/21 13:07 139/100 95 11/21/21 13:05 139/100 95 11/21/21 13:03 139/100 89 11/21/21 13:01 139/100 95 11/21/21 13:00 139/100 96 11/21/21 12:59 121/75 96 11/21/21 12:57 121/75 96 11/21/21 12:55 125/53 97 11/21/21 12:53 125/53 94 11/21/21 12:51 125/53 95 11/21/21 12:49 125/53 95 11/21/21 12:47 125/53 94 11/21/21 12:46 125/53 95 11/21/21 12:45 125/53 95 11/21/21 12:43 129/75 95 11/21/21 12:41 129/75 95 11/21/21 12:39 129/75 93 11/21/21 12:37 129/75 93 - Physical Examination General: No Apparent Distress HEENT: Positive: EOMI, Normocephaly Neck: Negative: JVD/HJR Cardiac: Positive: Reg Rate and Rhythm, S1/S2 Lungs: Positive: Decreased Breath Sounds Neuro: Positive: Grossly Intact Abdomen: Positive: Soft Skin: Negative: Rash Extremities: Present: +2 Edema, warm - Imaging and Cardiology EKG: report reviewed, image reviewed Echo: report reviewed - Telemetry EKG Rhythm: Sinus Rhythm - EKG Sinus rhythms and dysrhythmias: sinus tachycardia Repolarization changes or abnormalities: nonspecific abnormality, ST segment, and/or T wave - Allied health notes Allied health notes reviewed: nursing
[2021-11-22] MEDS: FAMOTIDINE 20 MG TAB PO SCH (21:29)
[2021-11-22] MEDS: MELATONIN 5 MG TAB PO SCH (21:30)
[2021-11-23] MEDS ORDERED: METOPROLOL TARTRATE 5 MG/5 ML INJ IV ONE ×2 (00:46→03:59)
[2021-11-23] MEDS ORDERED: SODIUM CHLORIDE 0.9% 250ML 250 ML IV ONE (03:39)
[2021-11-23] MEDS: FUROSEMIDE 20 MG/2 ML INJ IV SCH ×2 (06:09→20:00)
[2021-11-23] MEDS: VERAPAMIL 80 MG TAB PO SCH ×3 (06:09→22:35)
[2021-11-23] MEDS ORDERED: METOPROLOL TARTRATE 5 MG/5 ML INJ IV NR (06:44)
--- NOTE | 2021-11-23 07:49 | Progress Note ---
Hospitalist Physical - Constitutional Vitals: Temp Pulse Resp BP Pulse Ox 98.6 F 157 H 19 114/87 93 11/23/21 03:32 11/23/21 06:09 11/23/21 03:32 11/23/21 04:22 11/23/21 03:32 General appearance: Present: no acute distress, well-nourished, obese HEART Score - HEART Score Troponin: Troponin T < 0.010 ng/mL (0.00-0.029) 11/16/21 19:31 Results - Labs CBC & Chem 7: 11/21/21 08:20 11/21/21 08:20 Labs: Laboratory Last Values WBC 8.5 K/mm3 (4.5-11.0) 11/21/21 08:20 RBC 4.31 M/mm3 (3.65-5.03) 11/21/21 08:20 Hgb 13.0 gm/dl (11.8-15.2) 11/21/21 08:20 Hct 40.7 % (35.5-45.6) 11/21/21 08:20 MCV 94 fl (84-94) 11/21/21 08:20 MCH 30 pg (28-32) 11/21/21 08:20 MCHC 32 % (32-34) 11/21/21 08:20 RDW 16.3 % (13.2-15.2) H 11/21/21 08:20 Plt Count 206 K/mm3 (140-440) 11/21/21 08:20 Add Manual Diff Complete 11/17/21 08:28 Total Counted 100 11/17/21 08:28 Seg Neuts % (Manual) 88.0 % (40.0-70.0) H 11/17/21 08:28 Band Neutrophils % 2.0 % 11/17/21 08:28 Lymphocytes % (Manual) 6.0 % (13.4-35.0) L 11/17/21 08:28 Reactive Lymphs % (Man) 0 % 11/17/21 08:28 Monocytes % (Manual) 4.0 % (0.0-7.3) 11/17/21 08:28 Eosinophils % (Manual) 0 % (0.0-4.3) 11/17/21 08:28 Basophils % (Manual) 0 % (0.0-1.8) 11/17/21 08:28 Metamyelocytes % 0 % 11/17/21 08:28 Myelocytes % 0 % 11/17/21 08:28 Promyelocytes % 0 % 11/17/21 08:28 Blast Cells % 0 % 11/17/21 08:28 Nucleated RBC % Not Reportable 11/17/21 08:28 Seg Neutrophils # Man 13.1 K/mm3 (1.8-7.7) H 11/17/21 08:28 Band Neutrophils # 0.3 K/mm3 11/17/21 08:28 Lymphocytes # (Manual) 0.9 K/mm3 (1.2-5.4) L 11/17/21 08:28 Abs React Lymphs (Man) 0.0 K/mm3 11/17/21 08:28 Monocytes # (Manual) 0.6 K/mm3 (0.0-0.8) 11/17/21 08:28 Eosinophils # (Manual) 0.0 K/mm3 (0.0-0.4) 11/17/21 08:28 Basophils # (Manual) 0.0 K/mm3 (0.0-0.1) 11/17/21 08:28 Metamyelocytes # 0.0 K/mm3 11/17/21 08:28 Myelocytes # 0.0 K/mm3 11/17/21 08:28 Promyelocytes # 0.0 K/mm3 11/17/21 08:28 Blast Cells # 0.0 K/mm3 11/17/21 08:28 WBC Morphology Not Reportable 11/17/21 08:28 Hypersegmented Neuts Not Reportable 11/17/21 08:28 Hyposegmented Neuts Not Reportable 11/17/21 08:28 Hypogranular Neuts Not Reportable 11/17/21 08:28 Smudge Cells Not Reportable 11/17/21 08:28 Toxic Granulation Not Reportable 11/17/21 08:28 Toxic Vacuolation Not Reportable 11/17/21 08:28 Dohle Bodies Not Reportable 11/17/21 08:28 Pelger-Huet Anomaly Not Reportable 11/17/21 08:28 Riya Rods Not Reportable 11/17/21 08:28 Platelet Estimate Consistent w auto 11/17/21 08:28 Clumped Platelets Not Reportable 11/17/21 08:28 Plt Clumps, EDTA Not Reportable 11/17/21 08:28 Large Platelets Not Reportable 11/17/21 08:28 Giant Platelets Not Reportable 11/17/21 08:28 Platelet Satelliting Not Reportable 11/17/21 08:28 Plt Morphology Comment Not Reportable 11/17/21 08:28 RBC Morphology Normal 11/17/21 08:28 Dimorphic RBCs Not Reportable 11/17/21 08:28 Polychromasia Not Reportable 11/17/21 08:28 Hypochromasia Not Reportable 11/17/21 08:28 Poikilocytosis Not Reportable 11/17/21 08:28 Anisocytosis Not Reportable 11/17/21 08:28 Microcytosis Not Reportable 11/17/21 08:28 Macrocytosis Not Reportable 11/17/21 08:28 Spherocytes Not Reportable 11/17/21 08:28 Pappenheimer Bodies Not Reportable 11/17/21 08:28 Sickle Cells Not Reportable 11/17/21 08:28 Target Cells Not Reportable 11/17/21 08:28 Tear Drop Cells Not Reportable 11/17/21 08:28 Ovalocytes Not Reportable 11/17/21 08:28 Stomatocytes 1+ 11/16/21 15:30 Helmet Cells Not Reportable 11/17/21 08:28 [place] Bodies Not Reportable 11/17/21 08:28 [place] Rings Not Reportable 11/17/21 08:28 [place] Cells Not Reportable 11/17/21 08:28 Bite Cells Not Reportable 11/17/21 08:28 Crenated Cell Not Reportable 11/17/21 08:28 Elliptocytes Not Reportable 11/17/21 08:28 Acanthocytes (Spur) Not Reportable 11/17/21 08:28 Rouleaux Not Reportable 11/17/21 08:28 Hemoglobin C Crystals Not Reportable 11/17/21 08:28 Schistocytes Not Reportable 11/17/21 08:28 Malaria parasites Not Reportable 11/17/21 08:28 Miguel Bodies Not Reportable 11/17/21 08:28 Hem Pathologist Commnt No 11/17/21 08:28 PT 13.6 Sec. (12.2-14.9) 11/16/21 15:30 INR 0.92 (0.87-1.13) 11/16/21 15:30 APTT 30.4 Sec. (24.2-36.6) 11/16/21 15:30 ABG pH 7.390 pH Units (7.350-7.450) 11/17/21 15:10 ABG pCO2 64.4 mm Hg 11/17/21 15:10 ABG pO2 42.0 mm Hg (80.0-90.0) L 11/17/21 15:10 ABG HCO3 38.1 mmol/L (20.0-26.0) H 11/17/21 15:10 ABG O2 Saturation 80.5 % (95.0-99.0) L 11/17/21 15:10 ABG O2 Content 15.3 (0.0-44) 11/17/21 15:10 ABG Base Excess 10.5 mmol/L (-2.0-3.0) H 11/17/21 15:10 ABG Hemoglobin 13.9 gm/dl (14.0-18.0) L 11/17/21 15:10 ABG Carboxyhemoglobin 1.8 % (0.0-5.0) 11/17/21 15:10 ABG Methemoglobin 0.6 % (0.0-1.5) 11/17/21 15:10 Oxyhemoglobin 78.6 % (95.0-99.0) L 11/17/21 15:10 FiO2 21 % 11/17/21 15:10 Sodium 139 mmol/L (137-145) 11/21/21 08:20 Potassium 3.9 mmol/L (3.6-5.0) 11/21/21 08:20 Chloride 93.6 mmol/L (98-107) L 11/21/21 08:20 Carbon Dioxide 40 mmol/L (22-30) H 11/21/21 08:20 Anion Gap 9 mmol/L 11/21/21 08:20 BUN 10 mg/dL (9-20) 11/21/21 08:20 Creatinine 0.8 mg/dL (0.8-1.3) 11/21/21 08:20 Estimated GFR > 60 ml/min 11/21/21 08:20 BUN/Creatinine Ratio 13 % 11/21/21 08:20 Glucose 167 mg/dL (75-100) H 11/21/21 08:20 POC Glucose 186 mg/dL (70-105) H 11/22/21 20:45 Calcium 8.6 mg/dL (8.4-10.2) 11/21/21 08:20 Phosphorus 3.50 mg/dL (2.5-4.5) 11/21/21 08:20 Magnesium 2.00 mg/dL (1.7-2.3) 11/21/21 08:20 Total Bilirubin 0.20 mg/dL (0.1-1.2) 11/16/21 15:30 AST 54 units/L (5-40) H 11/16/21 15:30 ALT 43 units/L (7-56) 11/16/21 15:30 Alkaline Phosphatase 79 units/L (35-129) 11/16/21 15:30 Troponin T < 0.010 ng/mL (0.00-0.029) 11/16/21 19:31 NT-Pro-B Natriuret Pep 3063 pg/mL (0-900) H 11/16/21 15:30 Total Protein 6.5 g/dL (6.3-8.2) 11/16/21 15:30 Albumin 3.5 g/dL (3.9-5) L 11/16/21 15:30 Albumin/Globulin Ratio 1.2 % 11/16/21 15:30 [place]/IV: Voiding Method Condom Catheter Active Medications - Current Medications Current Medications: Generic Name Dose Route Start Last Admin Trade Name Freq PRN Reason Stop Dose Admin Acetaminophen 650 mg 11/16/21 17:41 Acetaminophen 325 Mg Tab PO Q4H PRN Pain MILD(1-3)/Fever >100.5/VILLELA Albuterol 2.5 mg 11/16/21 17:41 Albuterol 2.5 Mg/3 Ml Nebu IH Q4HRT PRN Shortness Of Breath Arformoterol Tartrate 15 mcg 11/18/21 20:00 11/22/21 21:16 Arformoterol 15 Mcg/2 Ml Nebu IH 15 mcg Q12HRT JENNIFER Administration Aspirin 81 mg 11/17/21 10:00 11/22/21 10:50 Aspirin Ec 81 Mg Tab PO 81 mg QDAY JENNIFER Administration Budesonide 0.5 mg 11/18/21 20:00 11/22/21 21:16 Budesonide 0.5 Mg/2 Ml Nebu IH 0.5 mg Q12HRT JENNIFER Administration Buspirone HCl 30 mg 11/16/21 22:00 11/22/21 21:30 Buspirone 10 Mg Tab PO 30 mg BID JENNIFER Administration Dextrose 50 ml 11/21/21 11:30 Dextrose 50% In Water (25gm) 50 Ml Syringe IV Q30MIN PRN Hypoglycemia Protocol Famotidine 20 mg 11/21/21 22:00 11/22/21 21:29 Famotidine 20 Mg Tab PO 20 mg QHS JENNIFER Administration Furosemide 20 mg 11/21/21 18:00 11/23/21 06:09 Furosemide 20 Mg/2 Ml Inj IV 20 mg 0600,1800 JENNIFER Administration Hydromorphone HCl 0.5 mg 11/16/21 17:41 Hydromorphone 0.5 Mg/0.5 Ml Inj IV Q13H PRN Pain , Severe (7-10) Insulin Human Lispro 0 unit 11/21/21 11:30 11/22/21 21:30 Insulin Lispro 100 Unit/Ml SUB-Q 1 unit ACHS JENNIFER Administration Protocol Melatonin 5 mg 11/21/21 22:00 11/22/21 21:30 Melatonin 5 Mg Tab PO 5 mg QHS JENNIFER Administration Methocarbamol 500 mg 11/16/21 17:44 11/21/21 22:14 Methocarbamol 500 Mg Tab PO 500 mg BID PRN Administration Muscle Spasm Metoprolol Tartrate 12.5 mg 11/22/21 14:00 11/22/21 21:29 Metoprolol Tartrate 25 Mg Tab PO 12.5 mg TID JENNIFER Administration Ondansetron HCl 4 mg 11/16/21 17:41 Ondansetron 4 Mg/2 Ml Inj IV Q8H PRN Nausea And Vomiting Oxycodone/Acetaminophen 1 tab 11/16/21 17:41 11/17/21 20:58 Oxycodone /Acetaminophen 5-325mg Tab PO 1 tab Q6H PRN Administration Pain, Moderate (4-6) Sodium Chloride 10 ml 11/16/21 22:00 11/22/21 21:31 Sodium Chloride 0.9% 10 Ml Flush Syringe IV 10 ml BID JENNIFER Administration Sodium Chloride 10 ml 11/16/21 17:41 11/23/21 06:11 Sodium Chloride 0.9% 10 Ml Flush Syringe IV 10 ml PRN PRN Administration LINE FLUSH Trazodone HCl 50 mg 11/21/21 22:00 11/21/21 22:14 Trazodone 50 Mg Tab PO 50 mg QHS PRN Administration Insomnia Verapamil HCl 80 mg 11/17/21 14:00 11/23/21 06:09 Verapamil 80 Mg Tab PO 80 mg Q8HR JENNIFER Administration Nutrition/Malnutrition Assess - Dietary Evaluation Nutrition/Malnutrition Findings: Nutrition Notes Start: 11/21/21 13:21 Freq: Status: Active Protocol: Document 11/21/21 13:21 TW (Rec: 11/21/21 13:25 TW [id number]) Nutrition Notes Need for Assessment generated from: MD Order,Education Initial or Follow up Brief Note Current Diagnosis Diabetes,Hypertension,Heart Failure Other Pertinent Diagnosis vascular dementia, cerebral atherosclerosis, metbaolic syndrome Current Diet Cardiac Labs/Tests Glucose:167 Pertinent Medications D50w 50ml [id number] Height 5 ft 8 in Weight 161 kg [place] Body Weight (kg) 70.00 BMI 53.9 Weight Status Morbidly Obese Subjective/Other Information RD consulted for diet education. Pt presents with weakness, difficulty breathing , leg edema. HX of metabolic syndrome, obesity hyperventilation, bipolar disorder. Ignacio score of 14. Pt not a candidate for diet education at this time. Burn Absent Trauma Absent Minimum of two criteria No Nutrition Intervention Anticipated Discharge Needs: Unable to identify at this time Follow-Up By: 11/23/21 Additional Comments F/U for PO intake, glucose levels, need for diet education
[2021-11-23] MEDS: METOPROLOL TARTRATE 25 MG TAB PO SCH (08:33)
[2021-11-23] MEDS: INSULIN LISPRO 100 UNIT/ML SUB-Q SCH ×4 (08:35→22:36)
[2021-11-23 09:09] LABS: BUN/Creatinine Ratio 23; Blood Urea Nitrogen 18 mg/dL (9-20); Calcium 8.8 mg/dL (8.4-10.2); Hemolysis Index 0
[2021-11-23] MEDS: busPIRone 10 MG TAB PO SCH ×2 (09:22→21:39)
[2021-11-23] MEDS: ASPIRIN EC 81 MG TAB PO SCH (09:23)
[2021-11-23] MEDS: BUDESONIDE 0.5 MG/2 ML NEBU IH SCH ×2 (11:11→22:06)
[2021-11-23] MEDS: ARFORMOTEROL 15 MCG/2 ML NEBU IH SCH ×2 (11:12→22:06)
--- NOTE | 2021-11-23 11:45 | Discharge Summary ---
Providers - Providers Date of Admission: 11/16/21 17:42 Attending physician: TRUNG WHITESIDE MD 11/16/21 17:16 Consult to Physician [CONS] Urgent Comment: Consulting Provider: UBALDO SANTILLAN Physician Instructions: Reason For Exam: acute respiratory failure 11/17/21 14:24 Physical Therapy Evaluation and Treat [CONS] Routine Comment: Pt eval and treat Reason For Exam: weakness 11/19/21 12:21 Consult to Case Management [CONS] Routine Services Needed at Discharge: DME Equipment Notified:: CHUCK SPLITTER Additional Physician Instructions: need trilogy on discharge 11/21/21 10:20 Consult to Physician [CONS] Routine Comment: Consulting Provider: ARI NG Physician Instructions: Reason For Exam: Reconsult- SVT HR in the 170s 11/21/21 10:56 Consult to Dietitian/Nutrition [CONS] Routine Physician Instructions: Reason For Exam: Reason for Consult: Diet education Primary care physician: FINISHER DENTURE Hospitalization Reason for admission: Acute hypoxic respiratory failure Condition: Stable Hospital course: This is a 76-year-old male with known past medical history of HTN, DM, morbid obesity, and bipolar disorder initially admitted to the floor for acute hypoxic and hypercapnic respiratory failure. Patient was transferred to the ICU overnight on 11/21 due to SVT, HR in the 170, unresponsive to IV adenosine. ICU Course to Date: 11/21: Patient was placed on cardizem gtt in the ICU. Patient converted to SR, HR in the 70-80s. Cardizem gtt is off this morning, VSS. Low dose BB added, Cardiology reconsulted. Continue PO lasix, stat labs ordered. Wean O2 supplementation as tolerated for SPO2 above 88%, Bipap at night. Pulmonary is also following. If patient remains stable by this afternoon, okay to transfer to [facility]. 11/22: Patient seen and examined, continue support care, 6L salter, denied any pain nor any discomfort at this time. Off cardizem gtt and back to SR this time. Will transfer to Telemetry floor, Continue diuresis and anticipte discharge in a day or two 11/23: Patient seen and examined doing better this morning I did discuss with cardiology they anticipate that the patient can be discharged today. Patient will need home oxygen on discharge with concentrator that can provide up to 5 to 6 L of oxygen. We have been working on getting him an NIV trilogy if this is not obtainable with strongly recommend that due to his significant obesity hypoventilation syndrome with chronic hypoxic hypercapnic respiratory failure. Will require PSG and full pulmonary evaluation as outpatient Patient continues to go in and out of atrial flutter per cardiology feels that this is secondary to his underlying medical condition which includes but not limited to his morbid obesity counseling has been provided to him on need to lose weight. He verbalized understanding. As a result of the paroxysmal nature of this arrhythmia Eliquis is now being recommended for him of discussed with him the importance and the risk factors associated with medication he verbalized understanding. 20 minutes counseling provided to him on lifestyle modification including weight loss he verbalized understanding. Assessment and Plan #Supraventricular Tachycardia (SVT) # Atrial Flutter -paroxysmal #CHF (Congestive Heart Failure) with Preserved EF #Hypertension - Code met overnight due to SVT, HR in the 170 s/p X3 dose of adenosine with no response - S/p Cardizem gtt, Converted to SR - Low dose BB added. patient remains on ASA, PO lasix, HTZ, and Verapamil - Cardiology reconsulted - Continue blood pressure monitor per protocol - Maintain MAP above 65 - Strict and I&Os and Daily weight - Close monitoring of renal function, stat labs pending #Acute Hypoxic and Hypercapneic Respiratory Failure #Pneumonia with Mixed Bacteria and COPD Exacerbation #Obesity Hypoventilation Syndrome - Currently on 10L [place] - Completed X5days course of IV Antiobiotics - Pulmonary is following - Continue gentle diurese and Nebx treatment per Pulmo - Bipap at night - Continue O2 supplementation and wean as tolerated - Continue SPO2 monitoring for SPO2 goal above 92% - Weight loss and increase physical activity discharge - Follow up with Pulmonary outpatient for PFT and sleep apnea eval #Type 2 Diabetes Mellitus - Consistent carbohydrate diet - BG check and SSI ACHS - Avoid Hypoglycemia - Hypoglycemic protocol #Bipolar Disorder - Continue supportive measures - Home meds resumed . Disposition: 06 HOME HEALTH CARE SERVICE Final Discharge Diagnosis (Prints w/discharge instructions): #Supraventricular Tachycardia (SVT). # Atrial Flutter -paroxysmal. #CHF (Congestive Heart Failure) with Preserved EF. #Hypertension. #Acute Hypoxic and Hypercapneic Respiratory Failure. #Pneumonia with Mixed Bacteria and COPD Exacerbation. #Obesity Hypoventilation Syndrome Time spent for discharge: 35-minute Core Measure Documentation - Palliative Care Palliative Care/ Comfort Measures: Not Applicable - Core Measures Any of the following diagnoses?: none Exam - Physical Exam Narrative exam: General appearance: Present: no acute distress, well-nourished, obese - EENT Eyes: Present: PERRL, EOM intact ENT: hearing intact - Neck Neck: Present: normal ROM - Respiratory Respiratory effort: normal Respiratory: bilateral: diminished - Cardiovascular Rhythm: Irregular tachycardia Heart Sounds: Present: S1 & S2 - Extremities Extremities: no ischemia, pulses intact, pulses symmetrical Extremity abnormal: edema, erythema (BLE swelling and discoloration) - Peripheral Assessment Bilateral Lower Extremity Edema Type: Pitting Edema Degree: 3+ Capillary Refill: < 3 seconds Skin Temperature: Warm Generalized Edema Type: Non-pitting Edema Degree: 3+ Capillary Refill: < 3 seconds Skin Temperature: Warm Peripheral Pulses: within normal limits - Abdominal General gastrointestinal: soft, non-distended, normal bowel sounds, other (Obese) - Integumentary Integumentary: Present: warm, dry, erythema (BLE) - Psychiatric Psychiatric: appropriate mood/affect, cooperative - Neurologic Neurologic: CNII-XII intact, moves all extremities - Allied Health Allied health notes reviewed: nursing, case management - Constitutional Vitals: Temp Pulse Resp BP Pulse Ox 98.3 F 154 H 18 111/56 96 11/23/21 07:12 11/23/21 11:15 11/23/21 11:15 11/23/21 07:12 11/23/21 11:11 Plan Activity: advance as tolerated, fall precautions Diet: low fat, diabetic Special Instructions: restrict fluid intake to (1200cc/day), record daily weights, record daily BP diary, record blood sugar diary Follow up with: PRIMARY CARE, [Primary Care Provider] - 7 Days JESSICA HANDY MD [Staff Physician] - 7 Days DORIS MARC MD [Staff Physician] - 7 Days Prescriptions: Melatonin [Melatonin 5MG TAB] 5 mg PO QHS #10 tablet Famotidine [Pepcid] 20 mg PO QHS #30 tablet Fluticasone/Salmeterol [Advair Diskus 250-50 mcg] 1 puff IH BID #1 can verapamiL [Calan] 80 mg PO Q8HR #90 tablet Apixaban [Eliquis] 5 mg PO Q12HR #60 tablet Aspirin EC [Halfprin EC] 81 mg PO QDAY #30 tablet Furosemide [Lasix TAB] 40 mg PO QDAY #60 tab Metoprolol Xl [Metoprolol SUCCINATE ER TAB] 25 mg PO QDAY #30 tablet ALBUTEROL NEB's [Proventil 0.083% NEBS] 2.5 mg IH Q4HRT PRN #90 nebu PRN Reason: Shortness Of Breath methOCARBAMOL [Robaxin TAB] 500 mg PO BID PRN #14 tablet PRN Reason: Muscle Spasm Other Discharge Orders: Nebulizer (Amb) Location: None Selected
[2021-11-23 11:54] LABS: Hematocrit 43.3 % (35.5-45.6); Hemoglobin 13.8 gm/dl (11.8-15.2); Mean Corpuscular HGB Conc 32 % (32-34); Mean Corpuscular Volume 93 fl (84-94); Platelet Count 228 K/mm3 (140-440); Red Blood Count 4.65 M/mm3 (3.65-5.03); Red Cell Distribution Width 16.6 % (13.2-15.2)
[2021-11-23 12:03] LABS: INR 0.96 (0.87-1.13)
--- NOTE | 2021-11-23 12:52 | Progress Note ---
Assessment and Plan Patient is a 76-year-old male with a reported past medical history of hypertension, diabetes, obesity, and bipolar disorder presented to the ED in respiratory distress who reports SOB for at least 1 week Acute respiratory failure Acute HFpEF A flutter with RVR Obesity hypoventilation syndrome Pneumonia? Hypertension Morbid obesity Diabetes next Echo 11/16/2021- Technically difficult study. EF 50 to 55%. Right ventricular systolic function is normal. No aortic regurgitation is present. Mild mitral regurgitation noted. Plan: Patient currently on verapamil 80 mg p.o. 3 times daily and metoprolol 12.5 mg p.o. 3 times daily Will convert Lopressor to metoprolol XL 25 mg p.o. daily and initiate Eliquis for anticoagulation Due to patient's size and weight unable to perform ischemic eval. May be considered as an outpatient Cardiac status otherwise stable Patient follow-up with Dr. Sage, [facility] heart specialists, on 01/04/2022 at 9 AM in our [place] location. Phone #[phone] Patient seen in conjunction with Dr. Sage who agrees with this plan of care - Patient Problems (1) Acute heart failure with preserved ejection fraction (HFpEF) Current Visit: Yes Status: Acute (2) Acute respiratory failure with hypoxia and hypercapnia Current Visit: Yes Status: Acute (3) Opacities of both lungs present on chest x-ray Current Visit: Yes Status: Acute (4) Diabetes Current Visit: No Status: Acute (5) Hypertension Current Visit: No Status: Acute Qualifiers: Hypertension type: primary hypertension Qualified Code(s): I10 - Essential (primary) hypertension (6) Obesity hypoventilation syndrome Current Visit: Yes Status: Chronic (7) Pneumonia Current Visit: No Status: Acute Subjective Date of service: 11/23/21 Principal diagnosis: HFpEF,aflutter w/ RVR, obesity hypoventilation Interval history: Resting in bed in no acute distress Noncompliant with manager monitoring. However patient appears to be going into episodes of a flutter with RVR Objective Vital Signs Temp Pulse Pulse Resp Resp BP Pulse Ox 11/23/21 12:16 98.3 F 153 H 102/61 97 11/23/21 11:15 154 H 18 11/23/21 11:11 96 11/23/21 08:33 157 H 11/23/21 07:12 98.3 F 82 111/56 91 11/23/21 06:09 157 H 11/23/21 04:22 92 H 114/87 11/23/21 04:20 146 H 95 11/23/21 03:32 98.6 F 106 H 19 94/53 93 11/23/21 00:22 147 H 11/22/21 23:00 98.1 F 131 H 20 111/80 96 11/22/21 22:59 94 11/22/21 21:29 158 H 111/63 11/22/21 21:27 158 H 111/63 11/22/21 20:00 94 11/22/21 19:09 98.2 F 159 H 20 111/63 94 11/22/21 15:15 98.4 F 152 H 18 110/74 95 11/22/21 14:15 157 H 95 11/22/21 13:29 154 H - Physical Examination General: No Apparent Distress HEENT: Positive: EOMI, Normocephaly Neck: Positive: trachea midline. Negative: JVD/HJR Cardiac: Positive: Irregularly Regular Lungs: Positive: Decreased Breath Sounds Neuro: Positive: Grossly Intact Abdomen: Positive: Soft Skin: Negative: Rash Extremities: Present: edema, warm - Labs and Meds Coagulation 11/23/21 Range/Units 11:03 PT 13.8 (12.2-14.9) Sec. INR 0.96 (0.87-1.13) APTT 33.0 (24.2-36.6) Sec. CBC 11/23/21 Range/Units 11:03 WBC 11.0 (4.5-11.0) K/mm3 RBC 4.65 (3.65-5.03) M/mm3 Hgb 13.8 (11.8-15.2) gm/dl Hct 43.3 (35.5-45.6) % Plt Count 228 (140-440) K/mm3 Comprehensive Metabolic Panel 11/23/21 11/23/21 Range/Units 08:33 11:03 Sodium 139 (137-145) mmol/L Potassium 3.9 (3.6-5.0) mmol/L Chloride 93.2 L (98-107) mmol/L Carbon Dioxide 40 H (22-30) mmol/L BUN 18 (9-20) mg/dL Creatinine 0.8 0.8 (0.8-1.3) mg/dL Glucose 119 H (75-100) mg/dL Calcium 8.8 (8.4-10.2) mg/dL - Imaging and Cardiology EKG: report reviewed, image reviewed Echo: report reviewed - Telemetry EKG Rhythm: Atrial Flutter - EKG Sinus rhythms and dysrhythmias: sinus tachycardia Supraventricular dysrhythmia: atrial flutter Repolarization changes or abnormalities: nonspecific abnormality, ST segment, and/or T wave - Allied health notes Allied health notes reviewed: nursing
[2021-11-23] MEDS: METOPROLOL SUCCINATE XL 25 MG TAB PO SCH (13:44)
[2021-11-23] MEDS: APIXABAN 5 MG TAB PO SCH ×2 (13:47→21:39)
[2021-11-23] MEDS ORDERED: dilTIAZem 25 MG/5 ML INJ IV ONE (16:03)
[2021-11-23] MEDS: AMIODARONE 200 MG TAB PO SCH (16:34)
--- NOTE | 2021-11-23 17:33 | Event Note ---
Date: 11/23/21 Discharge was canceled as patient remains in atrial flutter. Has been started on amiodarone drip. We will monitor on telemetry. Encouraged to use BiPAP tonight as he was not using it yesterday. Diet has also been adjusted to include consistent carbs. Critical care time 35 minutes
[2021-11-23] MEDS: AMIODARONE HCL 450 MG in DEXTROSE 5% IN WATER 241 ML IV SCH (21:38)
[2021-11-23] MEDS: FAMOTIDINE 20 MG TAB PO SCH (21:39)
[2021-11-23] MEDS: MELATONIN 5 MG TAB PO SCH (21:43)
[2021-11-24] MEDS: BUDESONIDE 0.5 MG/2 ML NEBU IH SCH ×3 (08:00→20:57)
[2021-11-24] MEDS: ARFORMOTEROL 15 MCG/2 ML NEBU IH SCH ×3 (08:00→20:57)
[2021-11-24] MEDS: INSULIN LISPRO 100 UNIT/ML SUB-Q SCH ×4 (08:30→22:38)
[2021-11-24] MEDS: FUROSEMIDE 20 MG/2 ML INJ IV SCH ×2 (09:01→17:50)
[2021-11-24] MEDS: AMIODARONE 200 MG TAB PO SCH ×2 (09:01→16:32)
[2021-11-24] MEDS: APIXABAN 5 MG TAB PO SCH ×2 (09:48→21:10)
[2021-11-24] MEDS: METOPROLOL SUCCINATE XL 25 MG TAB PO SCH (09:48)
[2021-11-24] MEDS: ASPIRIN EC 81 MG TAB PO SCH (09:48)
[2021-11-24] MEDS: busPIRone 10 MG TAB PO SCH ×2 (09:48→21:10)
[2021-11-24] MEDS: AMIODARONE HCL 450 MG in DEXTROSE 5% IN WATER 241 ML IV SCH ×2 (09:56→15:40)
[2021-11-24 10:22] LABS: Hematocrit 42.4 % (35.5-45.6); Hemoglobin 14.3 gm/dl (11.8-15.2); Mean Corpuscular HGB Conc 34 % (32-34); Mean Corpuscular Volume 91 fl (84-94); Platelet Count 214 K/mm3 (140-440); Red Blood Count 4.66 M/mm3 (3.65-5.03); Red Cell Distribution Width 15.9 % (13.2-15.2)
[2021-11-24] MEDS: DIGOXIN 0.5 MG/2 ML INJ IV SCH ×3 (10:34→22:08)
[2021-11-24 10:47] LABS: Alanine Aminotransferase 21 units/L (7-56); Albumin 3.2 g/dL (3.9-5); BUN/Creatinine Ratio 23; Blood Urea Nitrogen 21 mg/dL (9-20); Hemolysis Index 1
--- NOTE | 2021-11-24 11:36 | Progress Note ---
Assessment and Plan 76 y/o male with obesity hypoventilation syndrome and acute respiratory failure likely from volume overload but could have component of COPD as well given smoking history. 11/24/21: no new pulmonary recs 11/20/21: Continue scheduled nebs. NIV therapy at night and PRN during the day. Weight loss. Will need full PFT and outpatient PSG at discharge 11/19/21: Continue supplemental O2, will need walk test prior to discharge. Bipap has been tried and failed in this patient, this is the reason I am seeking help from Trilogy to prevent recurrent hospitalizations. 1. May need to consider putting back on IV lasix 2. Will add BID Pulmicort and Brovana therapy 3. Hold on IV steroids unless oxygen requirement continues to increase 4. Patient is willing to use NIV at home. Spoke with CM. Will reach out to [facility]. Will also need home O2 based on room air ABG. 5. Patient requires volume ventilation and all other therapies including bipap have been considered and ruled out due to the severity of the disease state and life threatening conditions including CO2 retention. Due to increased probability of acute exacerbation, patient requires mouthpiece ventilation to be used during the day as needed in addition to QHS usage with facemask. Patient suffers from chronic respiratory failure secondary to Obesity Hypoventilation syndrome and likely COPD given his smoking history. Subjective Date of service: 11/24/21 Principal diagnosis: HFpEF,aflutter w/ RVR, obesity hypoventilation Interval history: Patient not discharged as he was still in Aflutter. Objective Vital Signs - 12hr 11/24/21 11/24/21 11/24/21 00:25 01:34 04:50 Temperature 98.3 F 97.7 F Pulse Rate 146 H 153 H Respiratory 20 20 Rate Respiratory 20 Rate [Right Upper Arm] Blood Pressure 112/69 Blood Pressure 109/82 [Right] O2 Sat by Pulse 88 92 Oximetry 11/24/21 11/24/21 11/24/21 05:19 09:00 10:34 Temperature 97.7 F Pulse Rate 156 H 160 H Respiratory 18 Rate Respiratory Rate [Right Upper Arm] Blood Pressure 118/81 Blood Pressure [Right] O2 Sat by Pulse 90 95 Oximetry Constitutional: alert, other (obese) Eyes: non-icteric ENT: oropharynx moist Neck: supple Effort: mildly labored Ascultation: Bilateral: rales Percussion: Bilateral: not dull Tactile fremitus: Bilateral: normal Cardiovascular: regular rate and rhythm Gastrointestinal: normoactive bowel sounds Extremities: edema, anasarca Neurologic: normal mental status, non-focal exam CBC and BMP: 11/24/21 10:00 11/24/21 10:00 ABG, PT/INR, D-dimer: ABG ABG pH 7.390 pH Units (7.350-7.450) 11/17/21 15:10 ABG pCO2 64.4 mm Hg 11/17/21 15:10 ABG pO2 42.0 mm Hg (80.0-90.0) L 11/17/21 15:10 ABG O2 Saturation 80.5 % (95.0-99.0) L 11/17/21 15:10 PT/INR, D-dimer PT 13.8 Sec. (12.2-14.9) 11/23/21 11:03 INR 0.96 (0.87-1.13) 11/23/21 11:03 Abnormal lab findings: Abnormal Labs 11/16/21 11/16/21 11/16/21 14:40 15:30 15:30 WBC 15.7 H RDW 16.4 H Seg Neuts % (Manual) 82.0 H Lymphocytes % (Manual) 12.0 L Seg Neutrophils # Man 12.9 H Lymphocytes # (Manual) ABG pH 7.200 L ABG pO2 69.5 L ABG HCO3 36.4 H ABG O2 Saturation 90.0 L ABG Base Excess 5.2 H ABG Hemoglobin 13.1 L Oxyhemoglobin 87.9 L Sodium 133 L Potassium 5.1 H Chloride 92.1 L Carbon Dioxide 32 H BUN Glucose 126 H POC Glucose Calcium AST 54 H NT-Pro-B Natriuret Pep Albumin 3.5 L 11/16/21 11/17/21 11/17/21 15:30 08:28 08:28 WBC 14.9 H RDW 16.2 H Seg Neuts % (Manual) 88.0 H Lymphocytes % (Manual) 6.0 L Seg Neutrophils # Man 13.1 H Lymphocytes # (Manual) 0.9 L ABG pH ABG pO2 ABG HCO3 ABG O2 Saturation ABG Base Excess ABG Hemoglobin Oxyhemoglobin Sodium 133 L Potassium Chloride 93.0 L Carbon Dioxide 38 H BUN Glucose 113 H POC Glucose Calcium AST NT-Pro-B Natriuret Pep 3063 H Albumin 11/17/21 11/18/21 11/18/21 15:10 11:43 14:36 WBC RDW Seg Neuts % (Manual) Lymphocytes % (Manual) Seg Neutrophils # Man Lymphocytes # (Manual) ABG pH ABG pO2 42.0 L ABG HCO3 38.1 H ABG O2 Saturation 80.5 L ABG Base Excess 10.5 H ABG Hemoglobin 13.9 L Oxyhemoglobin 78.6 L Sodium 135 L Potassium Chloride 85.9 L Carbon Dioxide 40 H BUN Glucose 115 H POC Glucose 116 H Calcium 8.3 L AST NT-Pro-B Natriuret Pep Albumin 11/18/21 11/19/21 11/21/21 14:54 16:31 02:57 WBC RDW Seg Neuts % (Manual) Lymphocytes % (Manual) Seg Neutrophils # Man Lymphocytes # (Manual) ABG pH ABG pO2 ABG HCO3 ABG O2 Saturation ABG Base Excess ABG Hemoglobin Oxyhemoglobin Sodium 135 L Potassium Chloride 88.1 L Carbon Dioxide 38 H BUN Glucose 150 H POC Glucose 145 H 167 H Calcium AST NT-Pro-B Natriuret Pep Albumin 11/21/21 11/21/21 11/21/21 08:20 08:20 11:03 WBC RDW 16.3 H Seg Neuts % (Manual) Lymphocytes % (Manual) Seg Neutrophils # Man Lymphocytes # (Manual) ABG pH ABG pO2 ABG HCO3 ABG O2 Saturation ABG Base Excess ABG Hemoglobin Oxyhemoglobin Sodium Potassium Chloride 93.6 L Carbon Dioxide 40 H BUN Glucose 167 H POC Glucose 139 H Calcium AST NT-Pro-B Natriuret Pep Albumin 11/21/21 11/21/21 11/22/21 16:46 21:53 07:44 WBC RDW Seg Neuts % (Manual) Lymphocytes % (Manual) Seg Neutrophils # Man Lymphocytes # (Manual) ABG pH ABG pO2 ABG HCO3 ABG O2 Saturation ABG Base Excess ABG Hemoglobin Oxyhemoglobin Sodium Potassium Chloride Carbon Dioxide BUN Glucose POC Glucose 159 H 186 H 130 H Calcium AST NT-Pro-B Natriuret Pep Albumin 11/22/21 11/22/21 11/22/21 11:34 15:13 20:45 WBC RDW Seg Neuts % (Manual) Lymphocytes % (Manual) Seg Neutrophils # Man Lymphocytes # (Manual) ABG pH ABG pO2 ABG HCO3 ABG O2 Saturation ABG Base Excess ABG Hemoglobin Oxyhemoglobin Sodium Potassium Chloride Carbon Dioxide BUN Glucose POC Glucose 211 H 181 H 186 H Calcium AST NT-Pro-B Natriuret Pep Albumin 11/23/21 11/23/21 11/23/21 07:14 08:33 11:03 WBC RDW 16.6 H Seg Neuts % (Manual) Lymphocytes % (Manual) Seg Neutrophils # Man Lymphocytes # (Manual) ABG pH ABG pO2 ABG HCO3 ABG O2 Saturation ABG Base Excess ABG Hemoglobin Oxyhemoglobin Sodium Potassium Chloride 93.2 L Carbon Dioxide 40 H BUN Glucose 119 H POC Glucose 129 H Calcium AST NT-Pro-B Natriuret Pep Albumin 11/23/21 11/23/21 11/24/21 12:15 21:40 07:32 WBC RDW Seg Neuts % (Manual) Lymphocytes % (Manual) Seg Neutrophils # Man Lymphocytes # (Manual) ABG pH ABG pO2 ABG HCO3 ABG O2 Saturation ABG Base Excess ABG Hemoglobin Oxyhemoglobin Sodium Potassium Chloride Carbon Dioxide BUN Glucose POC Glucose 146 H 134 H 138 H Calcium AST NT-Pro-B Natriuret Pep Albumin 11/24/21 11/24/21 10:00 10:00 WBC RDW 15.9 H Seg Neuts % (Manual) Lymphocytes % (Manual) Seg Neutrophils # Man Lymphocytes # (Manual) ABG pH ABG pO2 ABG HCO3 ABG O2 Saturation ABG Base Excess ABG Hemoglobin Oxyhemoglobin Sodium Potassium Chloride 92.1 L Carbon Dioxide 38 H BUN 21 H Glucose 158 H POC Glucose Calcium AST NT-Pro-B Natriuret Pep Albumin 3.2 L Allied health notes reviewed: nursing
--- NOTE | 2021-11-24 11:52 | Progress Note ---
Assessment and Plan Patient is a 76-year-old male with a reported past medical history of hypertension, diabetes, obesity, and bipolar disorder presented to the ED in respiratory distress who reports SOB for at least 1 week Acute respiratory failure Acute HFpEF A flutter with RVR Obesity hypoventilation syndrome Pneumonia? Hypertension Morbid obesity Diabetes next Echo 11/16/2021- Technically difficult study. EF 50 to 55%. Right ventricular systolic function is normal. No aortic regurgitation is present. Mild mitral regurgitation noted. Plan: Patient discharged held yesterday as patient went into a flutter with RVR Patient currently on verapamil 80 mg p.o. 3 times daily, metoprolol XL 25 mg p.o. daily, amiodarone 200 mg p.o. daily, amiodarone drip, Patient ate breakfast this a.m. therefore will initiate IV digoxin If unable to control patient's rate we will plan for KENNETH cardioversion in the a.m. Patient to be n.p.o. after midnight Eliquis for anticoagulation Due to patient's size and weight unable to perform ischemic eval. May be considered as an outpatient Patient follow-up with Dr. Sage, [facility] heart specialists, on 01/04/2022 at 9 AM in our [place] location. Phone #[phone] Patient seen in conjunction with Dr. Sage who agrees with this plan of care - Patient Problems (1) Acute heart failure with preserved ejection fraction (HFpEF) Current Visit: Yes Status: Acute (2) Acute respiratory failure with hypoxia and hypercapnia Current Visit: Yes Status: Acute (3) Opacities of both lungs present on chest x-ray Current Visit: Yes Status: Acute (4) Diabetes Current Visit: No Status: Acute (5) Hypertension Current Visit: No Status: Acute Qualifiers: Hypertension type: primary hypertension Qualified Code(s): I10 - Essential (primary) hypertension (6) Obesity hypoventilation syndrome Current Visit: Yes Status: Chronic (7) Pneumonia Current Visit: No Status: Acute Subjective Date of service: 11/24/21 Principal diagnosis: HFpEF,aflutter w/ RVR, obesity hypoventilation Interval history: Resting in bed in no acute distress. Patient a flutter with RVR rate 150s to 160s on telemetry Objective Vital Signs Temp Pulse Pulse Resp Resp BP BP 11/24/21 10:34 160 H 11/24/21 09:00 97.7 F 156 H 18 118/81 11/24/21 05:19 11/24/21 04:50 97.7 F 153 H 20 109/82 11/24/21 01:34 20 11/24/21 00:25 98.3 F 146 H 20 112/69 11/23/21 22:22 147 H 32 H 11/23/21 22:06 11/23/21 22:00 167 H 11/23/21 20:31 87 120/86 11/23/21 17:22 152 H 11/23/21 16:35 157 H 11/23/21 16:16 111/77 11/23/21 16:13 97.3 F L 109/78 11/23/21 16:00 18 11/23/21 13:48 157 H 11/23/21 13:44 157 H 11/23/21 12:16 98.3 F 153 H 102/61 Pulse Ox 11/24/21 10:34 11/24/21 09:00 95 11/24/21 05:19 90 11/24/21 04:50 92 11/24/21 01:34 11/24/21 00:25 88 11/23/21 22:22 95 11/23/21 22:06 95 11/23/21 22:00 96 11/23/21 20:31 97 11/23/21 17:22 87 11/23/21 16:35 11/23/21 16:16 11/23/21 16:13 11/23/21 16:00 11/23/21 13:48 11/23/21 13:44 11/23/21 12:16 97 - Physical Examination General: No Apparent Distress HEENT: Positive: EOMI, Normocephaly Neck: Positive: trachea midline. Negative: JVD/HJR Cardiac: Positive: irregularly irregular, Tachycardia Lungs: Positive: Decreased Breath Sounds Neuro: Positive: Grossly Intact Abdomen: Positive: Soft Skin: Negative: Rash Extremities: Present: edema, warm - Labs and Meds Cardiac Enzymes 11/24/21 Range/Units 10:00 AST 38 (5-40) units/L Coagulation 11/23/21 Range/Units 11:03 PT 13.8 (12.2-14.9) Sec. INR 0.96 (0.87-1.13) APTT 33.0 (24.2-36.6) Sec. CBC 11/23/21 11/24/21 Range/Units 11:03 10:00 WBC 11.0 9.8 (4.5-11.0) K/mm3 RBC 4.65 4.66 (3.65-5.03) M/mm3 Hgb 13.8 14.3 (11.8-15.2) gm/dl Hct 43.3 42.4 (35.5-45.6) % Plt Count 228 214 (140-440) K/mm3 Comprehensive Metabolic Panel 11/23/21 11/24/21 Range/Units 11:03 10:00 Sodium 139 (137-145) mmol/L Potassium 3.7 (3.6-5.0) mmol/L Chloride 92.1 L (98-107) mmol/L Carbon Dioxide 38 H (22-30) mmol/L BUN 21 H (9-20) mg/dL Creatinine 0.8 0.9 (0.8-1.3) mg/dL Glucose 158 H (75-100) mg/dL Calcium 9.0 (8.4-10.2) mg/dL AST 38 (5-40) units/L ALT 21 (7-56) units/L Alkaline Phosphatase 69 (35-129) units/L Total Protein 6.3 (6.3-8.2) g/dL Albumin 3.2 L (3.9-5) g/dL - Imaging and Cardiology EKG: report reviewed, image reviewed Echo: report reviewed - Telemetry EKG Rhythm: Atrial Flutter - EKG Supraventricular dysrhythmia: atrial flutter Repolarization changes or abnormalities: nonspecific abnormality, ST segment, and/or T wave - Allied health notes Allied health notes reviewed: nursing
[2021-11-24] MEDS: VERAPAMIL 80 MG TAB PO SCH ×3 (13:58→21:11)
--- NOTE | 2021-11-24 14:27 | Progress Note ---
Assessment and Plan Assessment and plan: Hospital course: This is a 76-year-old male with known past medical history of HTN, DM, morbid obesity, and bipolar disorder initially admitted to the floor for acute hypoxic and hypercapnic respiratory failure. Patient was transferred to the ICU overnight on 11/21 due to SVT, HR in the 170, unresponsive to IV adenosine. ICU Course to Date: 11/21: Patient was placed on cardizem gtt in the ICU. Patient converted to SR, HR in the 70-80s. Cardizem gtt is off this morning, VSS. Low dose BB added, Cardiology reconsulted. Continue PO lasix, stat labs ordered. Wean O2 supplementation as tolerated for SPO2 above 88%, Bipap at night. Pulmonary is also following. If patient remains stable by this afternoon, okay to transfer to [facility]. 11/22: Patient seen and examined, continue support care, 6L salter, denied any pain nor any discomfort at this time. Off cardizem gtt and back to SR this time. Will transfer to Telemetry floor, Continue diuresis and anticipte discharge in a day or two 11/23: Patient seen and examined doing better this morning I did discuss with cardiology they anticipate that the patient can be discharged today. Patient will need home oxygen on discharge with concentrator that can provide up to 5 to 6 L of oxygen. We have been working on getting him an NIV trilogy if this is not obtainable with strongly recommend that due to his significant obesity hypoventilation syndrome with chronic hypoxic hypercapnic respiratory failure. Will require PSG and full pulmonary evaluation as outpatient Patient continues to go in and out of atrial flutter per cardiology feels that this is secondary to his underlying medical condition which includes but not limited to his morbid obesity counseling has been provided to him on need to lo se weight. He verbalized understanding. As a result of the paroxysmal nature of this arrhythmia Eliquis is now being recommended for him of discussed with him the importance and the risk factors associated with medication he verbalized understanding. 20 minutes counseling provided to him on lifestyle modification including weight loss he verbalized understanding. 11/24: Ventricular rate remains 140-160. Remainder of vitals stable, in no distress. Initiated on digoxin today in addition to amiodorone. D/w Dr. Sage. May consider KENNETH cardioversion if unable to control HR. Assessment and Plan #Supraventricular Tachycardia (SVT) # Atrial Flutter -paroxysmal #CHF (Congestive Heart Failure) with Preserved EF #Hypertension - Code met overnight due to SVT, HR in the 170 s/p X3 dose of adenosine with no response - S/p Cardizem gtt, Converted to SR - Low dose BB added. patient remains on ASA, PO lasix, HTZ, and Verapamil - Cardiology reconsulted - Continue blood pressure monitor per protocol - Maintain MAP above 65 - Strict and I&Os and Daily weight - Close monitoring of renal function, stat labs pending #Acute Hypoxic and Hypercapneic Respiratory Failure #Pneumonia with Mixed Bacteria and COPD Exacerbation #Obesity Hypoventilation Syndrome - Currently on 10L Salter - Completed X5days course of IV Antiobiotics - Pulmonary is following - Continue gentle diurese and Nebx treatment per Pulmo - Bipap at night - Continue O2 supplementation and wean as tolerated - Continue SPO2 monitoring for SPO2 goal above 92% - Weight loss and increase physical activity discharge - Follow up with Pulmonary outpatient for PFT and sleep apnea eval #Type 2 Diabetes Mellitus - Consistent carbohydrate diet - BG check and SSI ACHS - Avoid Hypoglycemia - Hypoglycemic protocol #Bipolar Disorder - Continue supportive measures - Home meds resumed History Interval history: Resting comfortably. No acute complaints. Hospitalist Physical - Physical exam Narrative exam: - Physical Exam Narrative exam: General appearance: Present: no acute distress, well-nourished, obese - EENT Eyes: Present: PERRL, EOM intact ENT: hearing intact - Neck Neck: Present: normal ROM - Respiratory Respiratory effort: normal Respiratory: bilateral: diminished - Cardiovascular Rhythm: Irregular tachycardia Heart Sounds: Present: S1 & S2 - Extremities Extremities: no ischemia, pulses intact, pulses symmetrical Extremity abnormal: edema, erythema (BLE swelling and discoloration) - Peripheral Assessment Bilateral Lower Extremity Edema Type: Pitting Edema Degree: 3+ Capillary Refill: < 3 seconds Skin Temperature: Warm Generalized Edema Type: Non-pitting Edema Degree: 3+ Capillary Refill: < 3 seconds Skin Temperature: Warm Peripheral Pulses: within normal limits - Abdominal General gastrointestinal: soft, non-distended, normal bowel sounds, other (Obese) - Integumentary Integumentary: Present: warm, dry, erythema (BLE) - Psychiatric Psychiatric: appropriate mood/affect, cooperative - Neurologic Neurologic: CNII-XII intact, moves all extremities - Allied Health Allied health notes reviewed: nursing, case management - Constitutional Vitals: Temp Pulse Resp BP Pulse Ox 97.7 F 160 H 18 138/71 95 11/24/21 09:00 11/24/21 10:34 11/24/21 09:00 11/24/21 13:58 11/24/21 09:00 General appearance: Present: no acute distress, well-nourished, obese HEART Score - HEART Score Troponin: Troponin T < 0.010 ng/mL (0.00-0.029) 11/16/21 19:31 Results - Labs CBC & Chem 7: 11/24/21 10:00 11/24/21 10:00 Labs: Laboratory Last Values WBC 9.8 K/mm3 (4.5-11.0) 11/24/21 10:00 RBC 4.66 M/mm3 (3.65-5.03) 11/24/21 10:00 Hgb 14.3 gm/dl (11.8-15.2) 11/24/21 10:00 Hct 42.4 % (35.5-45.6) 11/24/21 10:00 MCV 91 fl (84-94) 11/24/21 10:00 MCH 31 pg (28-32) 11/24/21 10:00 MCHC 34 % (32-34) 11/24/21 10:00 RDW 15.9 % (13.2-15.2) H 11/24/21 10:00 Plt Count 214 K/mm3 (140-440) 11/24/21 10:00 Add Manual Diff Complete 11/17/21 08:28 Total Counted 100 11/17/21 08:28 Seg Neuts % (Manual) 88.0 % (40.0-70.0) H 11/17/21 08:28 Band Neutrophils % 2.0 % 11/17/21 08:28 Lymphocytes % (Manual) 6.0 % (13.4-35.0) L 11/17/21 08:28 Reactive Lymphs % (Man) 0 % 11/17/21 08:28 Monocytes % (Manual) 4.0 % (0.0-7.3) 11/17/21 08:28 Eosinophils % (Manual) 0 % (0.0-4.3) 11/17/21 08:28 Basophils % (Manual) 0 % (0.0-1.8) 11/17/21 08:28 Metamyelocytes % 0 % 11/17/21 08:28 Myelocytes % 0 % 11/17/21 08:28 Promyelocytes % 0 % 11/17/21 08:28 Blast Cells % 0 % 11/17/21 08:28 Nucleated RBC % Not Reportable 11/17/21 08:28 Seg Neutrophils # Man 13.1 K/mm3 (1.8-7.7) H 11/17/21 08:28 Band Neutrophils # 0.3 K/mm3 11/17/21 08:28 Lymphocytes # (Manual) 0.9 K/mm3 (1.2-5.4) L 11/17/21 08:28 Abs React Lymphs (Man) 0.0 K/mm3 11/17/21 08:28 Monocytes # (Manual) 0.6 K/mm3 (0.0-0.8) 11/17/21 08:28 Eosinophils # (Manual) 0.0 K/mm3 (0.0-0.4) 11/17/21 08:28 Basophils # (Manual) 0.0 K/mm3 (0.0-0.1) 11/17/21 08:28 Metamyelocytes # 0.0 K/mm3 11/17/21 08:28 Myelocytes # 0.0 K/mm3 11/17/21 08:28 Promyelocytes # 0.0 K/mm3 11/17/21 08:28 Blast Cells # 0.0 K/mm3 11/17/21 08:28 WBC Morphology Not Reportable 11/17/21 08:28 Hypersegmented Neuts Not Reportable 11/17/21 08:28 Hyposegmented Neuts Not Reportable 11/17/21 08:28 Hypogranular Neuts Not Reportable 11/17/21 08:28 Smudge Cells Not Reportable 11/17/21 08:28 Toxic Granulation Not Reportable 11/17/21 08:28 Toxic Vacuolation Not Reportable 11/17/21 08:28 Dohle Bodies Not Reportable 11/17/21 08:28 Pelger-Huet Anomaly Not Reportable 11/17/21 08:28 Riya Rods Not Reportable 11/17/21 08:28 Platelet Estimate Consistent w auto 11/17/21 08:28 Clumped Platelets Not Reportable 11/17/21 08:28 Plt Clumps, EDTA Not Reportable 11/17/21 08:28 Large Platelets Not Reportable 11/17/21 08:28 Giant Platelets Not Reportable 11/17/21 08:28 Platelet Satelliting Not Reportable 11/17/21 08:28 Plt Morphology Comment Not Reportable 11/17/21 08:28 RBC Morphology Normal 11/17/21 08:28 Dimorphic RBCs Not Reportable 11/17/21 08:28 Polychromasia Not Reportable 11/17/21 08:28 Hypochromasia Not Reportable 11/17/21 08:28 Poikilocytosis Not Reportable 11/17/21 08:28 Anisocytosis Not Reportable 11/17/21 08:28 Microcytosis Not Reportable 11/17/21 08:28 Macrocytosis Not Reportable 11/17/21 08:28 Spherocytes Not Reportable 11/17/21 08:28 Pappenheimer Bodies Not Reportable 11/17/21 08:28 Sickle Cells Not Reportable 11/17/21 08:28 Target Cells Not Reportable 11/17/21 08:28 Tear Drop Cells Not Reportable 11/17/21 08:28 Ovalocytes Not Reportable 11/17/21 08:28 Stomatocytes 1+ 11/16/21 15:30 Helmet Cells Not Reportable 11/17/21 08:28 Ybarra-Karns Bodies Not Reportable 11/17/21 08:28 [place] Rings Not Reportable 11/17/21 08:28 Faviola Cells Not Reportable 11/17/21 08:28 Bite Cells Not Reportable 11/17/21 08:28 Crenated Cell Not Reportable 11/17/21 08:28 Elliptocytes Not Reportable 11/17/21 08:28 Acanthocytes (Spur) Not Reportable 11/17/21 08:28 Rouleaux Not Reportable 11/17/21 08:28 Hemoglobin C Crystals Not Reportable 11/17/21 08:28 Schistocytes Not Reportable 11/17/21 08:28 Malaria parasites Not Reportable 11/17/21 08:28 Miguel Bodies Not Reportable 11/17/21 08:28 Hem Pathologist Commnt No 11/17/21 08:28 PT 13.8 Sec. (12.2-14.9) 11/23/21 11:03 INR 0.96 (0.87-1.13) 11/23/21 11:03 APTT 33.0 Sec. (24.2-36.6) 11/23/21 11:03 ABG pH 7.390 pH Units (7.350-7.450) 11/17/21 15:10 ABG pCO2 64.4 mm Hg 11/17/21 15:10 ABG pO2 42.0 mm Hg (80.0-90.0) L 11/17/21 15:10 ABG HCO3 38.1 mmol/L (20.0-26.0) H 11/17/21 15:10 ABG O2 Saturation 80.5 % (95.0-99.0) L 11/17/21 15:10 ABG O2 Content 15.3 (0.0-44) 11/17/21 15:10 ABG Base Excess 10.5 mmol/L (-2.0-3.0) H 11/17/21 15:10 ABG Hemoglobin 13.9 gm/dl (14.0-18.0) L 11/17/21 15:10 ABG Carboxyhemoglobin 1.8 % (0.0-5.0) 11/17/21 15:10 ABG Methemoglobin 0.6 % (0.0-1.5) 11/17/21 15:10 Oxyhemoglobin 78.6 % (95.0-99.0) L 11/17/21 15:10 FiO2 21 % 11/17/21 15:10 Sodium 139 mmol/L (137-145) 11/24/21 10:00 Potassium 3.7 mmol/L (3.6-5.0) 11/24/21 10:00 Chloride 92.1 mmol/L (98-107) L 11/24/21 10:00 Carbon Dioxide 38 mmol/L (22-30) H 11/24/21 10:00 Anion Gap 13 mmol/L 11/24/21 10:00 BUN 21 mg/dL (9-20) H 11/24/21 10:00 Creatinine 0.9 mg/dL (0.8-1.3) 11/24/21 10:00 Estimated GFR > 60 ml/min 11/24/21 10:00 BUN/Creatinine Ratio 23 % 11/24/21 10:00 Glucose 158 mg/dL (75-100) H 11/24/21 10:00 POC Glucose 138 mg/dL (70-105) H 11/24/21 07:32 Calcium 9.0 mg/dL (8.4-10.2) 11/24/21 10:00 Phosphorus 3.50 mg/dL (2.5-4.5) 11/21/21 08:20 Magnesium 2.00 mg/dL (1.7-2.3) 11/21/21 08:20 Total Bilirubin 0.60 mg/dL (0.1-1.2) 11/24/21 10:00 AST 38 units/L (5-40) 11/24/21 10:00 ALT 21 units/L (7-56) 11/24/21 10:00 Alkaline Phosphatase 69 units/L (35-129) 11/24/21 10:00 Troponin T < 0.010 ng/mL (0.00-0.029) 11/16/21 19:31 NT-Pro-B Natriuret Pep 3063 pg/mL (0-900) H 11/16/21 15:30 Total Protein 6.3 g/dL (6.3-8.2) 11/24/21 10:00 Albumin 3.2 g/dL (3.9-5) L 11/24/21 10:00 Albumin/Globulin Ratio 1.0 % 11/24/21 10:00 TSH 1.340 mlU/mL (0.270-4.200) 11/24/21 10:00 Free T4 1.10 ng/dL (0.76-1.46) 11/24/21 10:00 Hammond/IV: Voiding Method Urinal Active Medications - Current Medications Current Medications: Generic Name Dose Route Start Last Admin Trade Name Freq PRN Reason Stop Dose Admin Acetaminophen 650 mg 11/16/21 17:41 Acetaminophen 325 Mg Tab PO Q4H PRN Pain MILD(1-3)/Fever >100.5/VILLELA Albuterol 2.5 mg 11/16/21 17:41 Albuterol 2.5 Mg/3 Ml Nebu IH Q4HRT PRN Shortness Of Breath Amiodarone HCl 200 mg 11/23/21 17:00 11/24/21 09:01 Amiodarone 200 Mg Tab PO 200 mg 0500,1700 JENNIFER Administration Apixaban 5 mg 11/23/21 12:00 11/24/21 09:48 Apixaban 5 Mg Tab PO 5 mg Q12HR JENNIFER Administration Protocol Arformoterol Tartrate 15 mcg 11/18/21 20:00 11/24/21 08:00 Arformoterol 15 Mcg/2 Ml Nebu IH Not Given Q12HRT JENNIFER Aspirin 81 mg 11/17/21 10:00 11/24/21 09:48 Aspirin Ec 81 Mg Tab PO 81 mg QDAY JENNIFER Administration Budesonide 0.5 mg 11/18/21 20:00 11/24/21 08:00 Budesonide 0.5 Mg/2 Ml Nebu IH Not Given Q12HRT JENNIFER Buspirone HCl 30 mg 11/16/21 22:00 11/24/21 09:48 Buspirone 10 Mg Tab PO 30 mg BID JENNIFER Administration Dextrose 50 ml 11/21/21 11:30 Dextrose 50% In Water (25gm) 50 Ml Syringe IV Q30MIN PRN Hypoglycemia Protocol Digoxin 0.25 mg 11/24/21 10:30 11/24/21 10:34 Digoxin 0.5 Mg/2 Ml Inj IV 11/25/21 04:31 0.25 mg Q6H JENNIFER Administration Famotidine 20 mg 11/21/21 22:00 11/23/21 21:39 Famotidine 20 Mg Tab PO 20 mg QHS JENNIFER Administration Furosemide 20 mg 11/21/21 18:00 11/24/21 09:01 Furosemide 20 Mg/2 Ml Inj IV 20 mg 0600,1800 JENNIFER Administration Hydromorphone HCl 0.5 mg 11/16/21 17:41 Hydromorphone 0.5 Mg/0.5 Ml Inj IV Q13H PRN Pain , Severe (7-10) AMIODARONE HCL 450 mg/ 250 mls @ 33.333 mls/hr 11/23/21 19:00 11/24/21 09:56 Dextrose IV 1 mg/min DIRECT JENNIFER 33.333 mls/hr Administration Protocol 1 MG/MIN Insulin Human Lispro 0 unit 11/21/21 11:30 11/24/21 12:04 Insulin Lispro 100 Unit/Ml SUB-Q Not Given ACHS JENNIFER Protocol Melatonin 5 mg 11/21/21 22:00 11/23/21 21:43 Melatonin 5 Mg Tab PO 5 mg QHS JENNIFER Administration Methocarbamol 500 mg 11/16/21 17:44 11/21/21 22:14 Methocarbamol 500 Mg Tab PO 500 mg BID PRN Administration Muscle Spasm Metoprolol Succinate 25 mg 11/23/21 12:00 11/24/21 09:48 Metoprolol Succinate Xl 25 Mg Tab PO 25 mg QDAY JENNIFER Administration Ondansetron HCl 4 mg 11/16/21 17:41 Ondansetron 4 Mg/2 Ml Inj IV Q8H PRN Nausea And Vomiting Oxycodone/Acetaminophen 1 tab 11/16/21 17:41 11/17/21 20:58 Oxycodone /Acetaminophen 5-325mg Tab PO 1 tab Q6H PRN Administration Pain, Moderate (4-6) Sodium Chloride 10 ml 11/16/21 22:00 11/24/21 09:49 Sodium Chloride 0.9% 10 Ml Flush Syringe IV 10 ml BID JENNIFER Administration Sodium Chloride 10 ml 11/16/21 17:41 11/24/21 09:52 Sodium Chloride 0.9% 10 Ml Flush Syringe IV 10 ml PRN PRN Administration LINE FLUSH Trazodone HCl 50 mg 11/21/21 22:00 11/21/21 22:14 Trazodone 50 Mg Tab PO 50 mg QHS PRN Administration Insomnia Verapamil HCl 80 mg 11/17/21 14:00 11/24/21 13:58 Verapamil 80 Mg Tab PO 80 mg Q8HR JENNIFER Administration Nutrition/Malnutrition Assess - Dietary Evaluation Nutrition/Malnutrition Findings: Nutrition Notes Start: 11/21/21 13:21 Freq: Status: Active Protocol: Document 11/23/21 14:48 CM (Rec: 11/23/21 15:00 CM [email or web address]) Co-Sign 11/23/21 14:48 WW Nutrition Notes Initial or Follow up Assessment Current Diagnosis Diabetes,Hypertension,Heart Failure,Respiratory Failure Other Pertinent Diagnosis OHS Current Diet Cardiac Diet, Obesity, Vascular Dementia, Cerebral Atherosclerosis Labs/Tests 11/23 Cl 93.2 CO2 40 Pertinent Medications 11/23 Budesonide Lasix Height 5 ft 8 in Weight 147.8 kg Leander Body Weight (kg) 70.00 BMI 49.5 Intake Prior to Admission Good Weight change and time frame No unintentional wt 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 Weight Status Morbidly Obese Subjective/Other Information RD follow-up per protocol. Pt reported no prior diet education to visit today - did not want to discuss d/t dizziness, but agreed to receiving handouts to review. Percent of energy/protein needs met: Cardiac Diet provides 2230kcal (100%) / 85g PRO (79%) q day Burn Absent Trauma Absent GI Symptoms None Food Allergy No Skin Integrity/Comment Redness, flaking / breakdown Current % PO Good (75-100%) Minimum of two criteria No Fluid Accumulation N/A Reduced Gusset Folder Strength N/A (non-severe) Protein-Calorie Malnutrition N\A #1 Nutrition Diagnosis Food and nutrition-related knowledge deficit Etiology Lack of prior diet education As Evidenced by Signs and Symptoms Pt reported no explanation of reducing sodium or monitoring carbohydrate intake prior to visit. Is patient on ventilator? No Is Patient Ambulatory and/or Out of Bed Yes REE-([place]-ambulatory/OOB) [ 2850.250 [id number]] Kcal/Kg value to use for calculation 15 Approximate Energy Requirements Using 2217 kcal/Kg Additional Notes 1.0-1.2g/kg AdjBW PRO; 108- 130g PRO q day Fluid: 30mL/kg AdjBW or per MD Nutrition Intervention Change Diet Order: Continue current diet order Teaching Recipient Patient Learning Readiness Fair Teaching Methods Handout Response to Teaching Refuses to learn Education Handouts Provided NCM Low Sodium Nutrition Therapy Barriers to Learning Physical RD phone number provided Yes Patient aware of follow up options Yes Goal #1 Pt to consume >75% of estimated energy/protein needs through current diet order Goal #2 Pt to review and maintain knowledge regarding nutrition education handouts Follow-Up By: 11/30/21 Additional Comments Monitor %PO intake and need for further diet education.
[2021-11-24] MEDS: FAMOTIDINE 20 MG TAB PO SCH (21:10)
[2021-11-24] MEDS: MELATONIN 5 MG TAB PO SCH (22:07)
[2021-11-25] MEDS: AMIODARONE HCL 450 MG in DEXTROSE 5% IN WATER 241 ML IV SCH (04:03)
[2021-11-25] MEDS: DIGOXIN 0.5 MG/2 ML INJ IV SCH (04:09)
[2021-11-25] MEDS: AMIODARONE 200 MG TAB PO SCH (06:14)
[2021-11-25] MEDS: VERAPAMIL 80 MG TAB PO SCH (06:14)
[2021-11-25] MEDS: FUROSEMIDE 20 MG/2 ML INJ IV SCH (06:15)
[2021-11-25 06:25] LABS: Hematocrit 43.4 % (35.5-45.6); Hemoglobin 14.2 gm/dl (11.8-15.2); Mean Corpuscular HGB Conc 33 % (32-34); Mean Corpuscular Volume 92 fl (84-94); Platelet Count 205 K/mm3 (140-440); Red Blood Count 4.71 M/mm3 (3.65-5.03); Red Cell Distribution Width 16.5 % (13.2-15.2)
[2021-11-25] MEDS ORDERED: propofoL 200 MG/20 ML VIAL IV ONE ×2 (08:25)
[2021-11-25] MEDS: INSULIN LISPRO 100 UNIT/ML SUB-Q SCH ×2 (08:28→12:30)
--- NOTE | 2021-11-25 08:36 | Progress Note ---
Assessment and Plan Assessment and plan: Hospital course: This is a 76-year-old male with known past medical history of HTN, DM, morbid obesity, and bipolar disorder initially admitted to the floor for acute hypoxic and hypercapnic respiratory failure. Patient was transferred to the ICU overnight on 11/21 due to SVT, HR in the 170, unresponsive to IV adenosine. ICU Course to Date: 11/21: Patient was placed on cardizem gtt in the ICU. Patient converted to SR, HR in the 70-80s. Cardizem gtt is off this morning, VSS. Low dose BB added, Cardiology reconsulted. Continue PO lasix, stat labs ordered. Wean O2 supplementation as tolerated for SPO2 above 88%, Bipap at night. Pulmonary is also following. If patient remains stable by this afternoon, okay to transfer to [facility]. 11/22: Patient seen and examined, continue support care, 6L salter, denied any pain nor any discomfort at this time. Off cardizem gtt and back to SR this time. Will transfer to Telemetry floor, Continue diuresis and anticipte discharge in a day or two 11/23: Patient seen and examined doing better this morning I did discuss with cardiology they anticipate that the patient can be discharged today. Patient will need home oxygen on discharge with concentrator that can provide up to 5 to 6 L of oxygen. We have been working on getting him an NIV trilogy if this is not obtainable with strongly recommend that due to his significant obesity hypoventilation syndrome with chronic hypoxic hypercapnic respiratory failure. Will require PSG and full pulmonary evaluation as outpatient Patient continues to go in and out of atrial flutter per cardiology feels that this is secondary to his underlying medical condition which includes but not limited to his morbid obesity counseling has been provided to him on need to lo se weight. He verbalized understanding. As a result of the paroxysmal nature of this arrhythmia Taye is now being recommended for him of discussed with him the importance and the risk factors associated with medication he verbalized understanding. 20 minutes counseling provided to him on lifestyle modification including weight loss he verbalized understanding. 11/24: Ventricular rate remains 140-160. Remainder of vitals stable, in no distress. Initiated on digoxin today in addition to amiodorone. D/w Dr. Sage. May consider KENNETH cardioversion if unable to control HR. 11/25: Assessment and Plan #Supraventricular Tachycardia (SVT) # Atrial Flutter -paroxysmal #CHF (Congestive Heart Failure) with Preserved EF #Hypertension - Code met overnight due to SVT, HR in the 170 s/p X3 dose of adenosine with no response - S/p Cardizem gtt, Converted to SR - Low dose BB added. patient remains on ASA, PO lasix, HTZ, and Verapamil - Cardiology reconsulted - Continue blood pressure monitor per protocol - Maintain MAP above 65 - Strict and I&Os and Daily weight - Close monitoring of renal function, stat labs pending #Acute Hypoxic and Hypercapneic Respiratory Failure #Pneumonia with Mixed Bacteria and COPD Exacerbation #Obesity Hypoventilation Syndrome - Currently on 10L [place] - Completed X5days course of IV Antiobiotics - Pulmonary is following - Continue gentle diurese and Nebx treatment per Pulmo - Bipap at night - Continue O2 supplementation and wean as tolerated - Continue SPO2 monitoring for SPO2 goal above 92% - Weight loss and increase physical activity discharge - Follow up with Pulmonary outpatient for PFT and sleep apnea eval #Type 2 Diabetes Mellitus - Consistent carbohydrate diet - BG check and SSI ACHS - Avoid Hypoglycemia - Hypoglycemic protocol #Bipolar Disorder - Continue supportive measures - Home meds resumed Hospitalist Physical - Physical exam Narrative exam: - Physical Exam Narrative exam: General appearance: Present: no acute distress, well-nourished, obese - EENT Eyes: Present: PERRL, EOM intact ENT: hearing intact - Neck Neck: Present: normal ROM - Respiratory Respiratory effort: normal Respiratory: bilateral: diminished - Cardiovascular Rhythm: Irregular tachycardia Heart Sounds: Present: S1 & S2 - Extremities Extremities: no ischemia, pulses intact, pulses symmetrical Extremity abnormal: edema, erythema (BLE swelling and discoloration) - Peripheral Assessment Bilateral Lower Extremity Edema Type: Pitting Edema Degree: 3+ Capillary Refill: < 3 seconds Skin Temperature: Warm Generalized Edema Type: Non-pitting Edema Degree: 3+ Capillary Refill: < 3 seconds Skin Temperature: Warm Peripheral Pulses: within normal limits - Abdominal General gastrointestinal: soft, non-distended, normal bowel sounds, other (Obese) - Integumentary Integumentary: Present: warm, dry, erythema (BLE) - Psychiatric Psychiatric: appropriate mood/affect, cooperative - Neurologic Neurologic: CNII-XII intact, moves all extremities - Allied Health Allied health notes reviewed: nursing, case management - Constitutional Vitals: Temp Pulse Resp BP Pulse Ox 97.5 F L 154 H 18 132/58 97 11/25/21 05:38 11/25/21 06:14 11/25/21 05:38 11/25/21 06:14 11/25/21 05:40 General appearance: Present: no acute distress, well-nourished, obese HEART Score - HEART Score Troponin: Troponin T < 0.010 ng/mL (0.00-0.029) 11/16/21 19:31 Results - Labs CBC & Chem 7: 11/25/21 05:27 11/24/21 10:00 Labs: Laboratory Last Values WBC 11.2 K/mm3 (4.5-11.0) H 11/25/21 05:27 RBC 4.71 M/mm3 (3.65-5.03) 11/25/21 05:27 Hgb 14.2 gm/dl (11.8-15.2) 11/25/21 05:27 Hct 43.4 % (35.5-45.6) 11/25/21 05:27 MCV 92 fl (84-94) 11/25/21 05:27 MCH 30 pg (28-32) 11/25/21 05:27 MCHC 33 % (32-34) 11/25/21 05:27 RDW 16.5 % (13.2-15.2) H 11/25/21 05:27 Plt Count 205 K/mm3 (140-440) 11/25/21 05:27 Add Manual Diff Complete 11/17/21 08:28 Total Counted 100 11/17/21 08:28 Seg Neuts % (Manual) 88.0 % (40.0-70.0) H 11/17/21 08:28 Band Neutrophils % 2.0 % 11/17/21 08:28 Lymphocytes % (Manual) 6.0 % (13.4-35.0) L 11/17/21 08:28 Reactive Lymphs % (Man) 0 % 11/17/21 08:28 Monocytes % (Manual) 4.0 % (0.0-7.3) 11/17/21 08:28 Eosinophils % (Manual) 0 % (0.0-4.3) 11/17/21 08:28 Basophils % (Manual) 0 % (0.0-1.8) 11/17/21 08:28 Metamyelocytes % 0 % 11/17/21 08:28 Myelocytes % 0 % 11/17/21 08:28 Promyelocytes % 0 % 11/17/21 08:28 Blast Cells % 0 % 11/17/21 08:28 Nucleated RBC % Not Reportable 11/17/21 08:28 Seg Neutrophils # Man 13.1 K/mm3 (1.8-7.7) H 11/17/21 08:28 Band Neutrophils # 0.3 K/mm3 11/17/21 08:28 Lymphocytes # (Manual) 0.9 K/mm3 (1.2-5.4) L 11/17/21 08:28 Abs React Lymphs (Man) 0.0 K/mm3 11/17/21 08:28 Monocytes # (Manual) 0.6 K/mm3 (0.0-0.8) 11/17/21 08:28 Eosinophils # (Manual) 0.0 K/mm3 (0.0-0.4) 11/17/21 08:28 Basophils # (Manual) 0.0 K/mm3 (0.0-0.1) 11/17/21 08:28 Metamyelocytes # 0.0 K/mm3 11/17/21 08:28 Myelocytes # 0.0 K/mm3 11/17/21 08:28 Promyelocytes # 0.0 K/mm3 11/17/21 08:28 Blast Cells # 0.0 K/mm3 11/17/21 08:28 WBC Morphology Not Reportable 11/17/21 08:28 Hypersegmented Neuts Not Reportable 11/17/21 08:28 Hyposegmented Neuts Not Reportable 11/17/21 08:28 Hypogranular Neuts Not Reportable 11/17/21 08:28 Smudge Cells Not Reportable 11/17/21 08:28 Toxic Granulation Not Reportable 11/17/21 08:28 Toxic Vacuolation Not Reportable 11/17/21 08:28 Dohle Bodies Not Reportable 11/17/21 08:28 Pelger-Huet Anomaly Not Reportable 11/17/21 08:28 Riya Rods Not Reportable 11/17/21 08:28 Platelet Estimate Consistent w auto 11/17/21 08:28 Clumped Platelets Not Reportable 11/17/21 08:28 Plt Clumps, EDTA Not Reportable 11/17/21 08:28 Large Platelets Not Reportable 11/17/21 08:28 Giant Platelets Not Reportable 11/17/21 08:28 Platelet Satelliting Not Reportable 11/17/21 08:28 Plt Morphology Comment Not Reportable 11/17/21 08:28 RBC Morphology Normal 11/17/21 08:28 Dimorphic RBCs Not Reportable 11/17/21 08:28 Polychromasia Not Reportable 11/17/21 08:28 Hypochromasia Not Reportable 11/17/21 08:28 Poikilocytosis Not Reportable 11/17/21 08:28 Anisocytosis Not Reportable 11/17/21 08:28 Microcytosis Not Reportable 11/17/21 08:28 Macrocytosis Not Reportable 11/17/21 08:28 Spherocytes Not Reportable 11/17/21 08:28 Pappenheimer Bodies Not Reportable 11/17/21 08:28 Sickle Cells Not Reportable 11/17/21 08:28 Target Cells Not Reportable 11/17/21 08:28 Tear Drop Cells Not Reportable 11/17/21 08:28 Ovalocytes Not Reportable 11/17/21 08:28 Stomatocytes 1+ 11/16/21 15:30 Helmet Cells Not Reportable 11/17/21 08:28 Ybarra-Schoolcraft Bodies Not Reportable 11/17/21 08:28 [place] Rings Not Reportable 11/17/21 08:28 Faviola Cells Not Reportable 11/17/21 08:28 Bite Cells Not Reportable 11/17/21 08:28 Crenated Cell Not Reportable 11/17/21 08:28 Elliptocytes Not Reportable 11/17/21 08:28 Acanthocytes (Spur) Not Reportable 11/17/21 08:28 Rouleaux Not Reportable 11/17/21 08:28 Hemoglobin C Crystals Not Reportable 11/17/21 08:28 Schistocytes Not Reportable 11/17/21 08:28 Malaria parasites Not Reportable 11/17/21 08:28 Miguel Bodies Not Reportable 11/17/21 08:28 Hem Pathologist Commnt No 11/17/21 08:28 PT 13.8 Sec. (12.2-14.9) 11/23/21 11:03 INR 0.96 (0.87-1.13) 11/23/21 11:03 APTT 33.0 Sec. (24.2-36.6) 11/23/21 11:03 ABG pH 7.390 pH Units (7.350-7.450) 11/17/21 15:10 ABG pCO2 64.4 mm Hg 11/17/21 15:10 ABG pO2 42.0 mm Hg (80.0-90.0) L 11/17/21 15:10 ABG HCO3 38.1 mmol/L (20.0-26.0) H 11/17/21 15:10 ABG O2 Saturation 80.5 % (95.0-99.0) L 11/17/21 15:10 ABG O2 Content 15.3 (0.0-44) 11/17/21 15:10 ABG Base Excess 10.5 mmol/L (-2.0-3.0) H 11/17/21 15:10 ABG Hemoglobin 13.9 gm/dl (14.0-18.0) L 11/17/21 15:10 ABG Carboxyhemoglobin 1.8 % (0.0-5.0) 11/17/21 15:10 ABG Methemoglobin 0.6 % (0.0-1.5) 11/17/21 15:10 Oxyhemoglobin 78.6 % (95.0-99.0) L 11/17/21 15:10 FiO2 21 % 11/17/21 15:10 Sodium 139 mmol/L (137-145) 11/24/21 10:00 Potassium 3.7 mmol/L (3.6-5.0) 11/24/21 10:00 Chloride 92.1 mmol/L (98-107) L 11/24/21 10:00 Carbon Dioxide 38 mmol/L (22-30) H 11/24/21 10:00 Anion Gap 13 mmol/L 11/24/21 10:00 BUN 21 mg/dL (9-20) H 11/24/21 10:00 Creatinine 0.9 mg/dL (0.8-1.3) 11/24/21 10:00 Estimated GFR > 60 ml/min 11/24/21 10:00 BUN/Creatinine Ratio 23 % 11/24/21 10:00 Glucose 158 mg/dL (75-100) H 11/24/21 10:00 POC Glucose 153 mg/dL (70-105) H 11/24/21 21:58 Calcium 9.0 mg/dL (8.4-10.2) 11/24/21 10:00 Phosphorus 3.50 mg/dL (2.5-4.5) 11/21/21 08:20 Magnesium 2.00 mg/dL (1.7-2.3) 11/21/21 08:20 Total Bilirubin 0.60 mg/dL (0.1-1.2) 11/24/21 10:00 AST 38 units/L (5-40) 11/24/21 10:00 ALT 21 units/L (7-56) 11/24/21 10:00 Alkaline Phosphatase 69 units/L (35-129) 11/24/21 10:00 Troponin T < 0.010 ng/mL (0.00-0.029) 11/16/21 19:31 NT-Pro-B Natriuret Pep 3063 pg/mL (0-900) H 11/16/21 15:30 Total Protein 6.3 g/dL (6.3-8.2) 11/24/21 10:00 Albumin 3.2 g/dL (3.9-5) L 11/24/21 10:00 Albumin/Globulin Ratio 1.0 % 11/24/21 10:00 TSH 1.340 mlU/mL (0.270-4.200) 11/24/21 10:00 Free T4 1.10 ng/dL (0.76-1.46) 11/24/21 10:00 Hammond/IV: Voiding Method Urinal Active Medications - Current Medications Current Medications: Generic Name Dose Route Start Last Admin Trade Name Freq PRN Reason Stop Dose Admin Acetaminophen 650 mg 11/16/21 17:41 Acetaminophen 325 Mg Tab PO Q4H PRN Pain MILD(1-3)/Fever >100.5/VILLELA Albuterol 2.5 mg 11/16/21 17:41 Albuterol 2.5 Mg/3 Ml Nebu IH Q4HRT PRN Shortness Of Breath Amiodarone HCl 200 mg 11/23/21 17:00 11/25/21 06:14 Amiodarone 200 Mg Tab PO 200 mg 0500,1700 JENNIFER Administration Apixaban 5 mg 11/23/21 12:00 11/24/21 21:10 Apixaban 5 Mg Tab PO 5 mg Q12HR JENNIFER Administration Protocol Arformoterol Tartrate 15 mcg 11/18/21 20:00 11/24/21 20:57 Arformoterol 15 Mcg/2 Ml Nebu IH Not Given Q12HRT JENNIFER Aspirin 81 mg 11/17/21 10:00 11/24/21 09:48 Aspirin Ec 81 Mg Tab PO 81 mg QDAY JENNIFER Administration Benzocaine 3 spray 11/25/21 09:00 Benzocaine 20% Top [place] 0.5 Ml Unit Dose MM 11/25/21 12:00 PREOP NR Budesonide 0.5 mg 11/18/21 20:00 11/24/21 20:57 Budesonide 0.5 Mg/2 Ml Nebu IH Not Given Q12HRT JENNIFER Buspirone HCl 30 mg 11/16/21 22:00 11/24/21 21:10 Buspirone 10 Mg Tab PO 30 mg BID JENNIFER Administration Dextrose 50 ml 11/21/21 11:30 Dextrose 50% In Water (25gm) 50 Ml Syringe IV Q30MIN PRN Hypoglycemia Protocol Famotidine 20 mg 11/21/21 22:00 11/24/21 21:10 Famotidine 20 Mg Tab PO 20 mg QHS JENNIFER Administration Furosemide 20 mg 11/21/21 18:00 11/25/21 06:15 Furosemide 20 Mg/2 Ml Inj IV 20 mg 0600,1800 JENNIFER Administration Hydromorphone HCl 0.5 mg 11/16/21 17:41 Hydromorphone 0.5 Mg/0.5 Ml Inj IV Q13H PRN Pain , Severe (7-10) AMIODARONE HCL 450 mg/ 250 mls @ 33.333 mls/hr 11/23/21 19:00 11/25/21 04:03 Dextrose IV 1 mg/min DIRECT JENNIFER 33.333 mls/hr Administration Protocol 1 MG/MIN Sodium Chloride 1,000 mls @ 42 mls/hr 11/25/21 09:00 Nacl 0.9% 1000 Ml IV DIRECT JENNIFER Insulin Human Lispro 0 unit 11/21/21 11:30 11/25/21 08:28 Insulin Lispro 100 Unit/Ml SUB-Q Not Given ACHS [facility] Protocol Melatonin 5 mg 11/21/21 22:00 11/24/21 22:07 Melatonin 5 Mg Tab PO 5 mg QHS JENNIFER Administration Methocarbamol 500 mg 11/16/21 17:44 11/21/21 22:14 Methocarbamol 500 Mg Tab PO 500 mg BID PRN Administration Muscle Spasm Metoprolol Succinate 25 mg 11/23/21 12:00 11/24/21 09:48 Metoprolol Succinate Xl 25 Mg Tab PO 25 mg QDAY JENNIFER Administration Ondansetron HCl 4 mg 11/16/21 17:41 Ondansetron 4 Mg/2 Ml Inj IV Q8H PRN Nausea And Vomiting Oxycodone/Acetaminophen 1 tab 11/16/21 17:41 11/17/21 20:58 Oxycodone /Acetaminophen 5-325mg Tab PO 1 tab Q6H PRN Administration Pain, Moderate (4-6) Sodium Chloride 10 ml 11/16/21 22:00 11/24/21 21:12 Sodium Chloride 0.9% 10 Ml Flush Syringe IV 10 ml BID JENNIFER Administration Sodium Chloride 10 ml 11/16/21 17:41 11/24/21 09:52 Sodium Chloride 0.9% 10 Ml Flush Syringe IV 10 ml PRN PRN Administration LINE FLUSH Trazodone HCl 50 mg 11/21/21 22:00 11/21/21 22:14 Trazodone 50 Mg Tab PO 50 mg QHS PRN Administration Insomnia Verapamil HCl 80 mg 11/17/21 14:00 11/25/21 06:14 Verapamil 80 Mg Tab PO 80 mg Q8HR JENNIFER Administration Nutrition/Malnutrition Assess - Dietary Evaluation Nutrition/Malnutrition Findings: Nutrition Notes Start: 11/21/21 13:21 Freq: Status: Active Protocol: Document 11/23/21 14:48 CM (Rec: 11/23/21 15:00 CM [email or web address]) Co-Sign 11/23/21 14:48 WW Nutrition Notes Initial or Follow up Assessment Current Diagnosis Diabetes,Hypertension,Heart Failure,Respiratory Failure Other Pertinent Diagnosis OHS Current Diet Cardiac Diet, Obesity, Vascular Dementia, Cerebral Atherosclerosis Labs/Tests 11/23 Cl 93.2 CO2 40 Pertinent Medications 11/23 Budesonide Lasix Height 5 ft 8 in Weight 147.8 kg [place] Body Weight (kg) 70.00 BMI 49.5 Intake Prior to Admission Good Weight change and time frame No unintentional wt loss ORTHOTIST per malnutrition screening tool assessment. Weight Status Morbidly Obese Subjective/Other Information RD follow-up per protocol. Pt reported no prior diet education to visit today - did not want to discuss d/t dizziness, but agreed to receiving handouts to review. Percent of energy/protein needs met: Cardiac Diet provides 2230kcal (100%) / 85g PRO (79%) q day Burn Absent Trauma Absent GI Symptoms None Food Allergy No Skin Integrity/Comment Redness, flaking / breakdown Current % PO Good (75-100%) Minimum of two criteria No Fluid Accumulation N/A Reduced Lab Aide Strength N/A (non-severe) Protein-Calorie Malnutrition N\A #1 Nutrition Diagnosis Food and nutrition-related knowledge deficit Etiology Lack of prior diet education As Evidenced by Signs and Symptoms Pt reported no explanation of reducing sodium or monitoring carbohydrate intake prior to visit. Is patient on ventilator? No Is Patient Ambulatory and/or Out of Bed Yes REE-([facility]-ambulatory/OOB) [ 2850.250 [id number]] Kcal/Kg value to use for calculation 15 Approximate Energy Requirements Using 2217 kcal/Kg Additional Notes 1.0-1.2g/kg AdjBW PRO; 108- 130g PRO q day Fluid: 30mL/kg AdjBW or per MD Nutrition Intervention Change Diet Order: Continue current diet order Teaching Recipient Patient Learning Readiness Fair Teaching Methods Handout Response to Teaching Refuses to learn Education Handouts Provided NCM Low Sodium Nutrition Therapy Barriers to Learning Physical RD phone number provided Yes Patient aware of follow up options Yes Goal #1 Pt to consume >75% of estimated energy/protein needs through current diet order Goal #2 Pt to review and maintain knowledge regarding nutrition education handouts Follow-Up By: 11/30/21 Additional Comments Monitor %PO intake and need for further diet education.
--- NOTE | 2021-11-25 08:43 | Anesthesia Consultation ---
Anesthesia Consult and Med Hx Date of service: 11/25/21 - Airway Anesthetic Teeth Evaluation: Poor (some missing teeth) ROM Head & Neck: Adequate Mental/Hyoid Distance: Adequate Mallampati Class: Class III Intubation Access Assessment: Possibly Difficult - Pre-Operative Health Status ASA Pre-Surgery Classification: ASA4 Proposed Anesthetic Plan: MAC - Pulmonary Hx Asthma: No Hx Respiratory Symptoms: Yes (SOB, hypoventilation syndrome) COPD: No Hx Pneumonia: Yes (bilateral on chest x-ray) - Cardiovascular System Hx Hypertension: Yes Hx Coronary Artery Disease: No (non ischemic heart failure with preserved EF) Hx Cardia Arrhythmia: Yes (Atrial flutter with RVR) Hx Peripheral Vascular Disease: Yes (cerebral atherosclerosis) - Central Nervous System Hx Psychiatric Problems: Yes (Bipolar symdrome, Depression, vascular dementia) - Endocrine Hx End Stage Renal Disease: No Hx Insulin Dependent Diabetes: Yes - Other Systems Hx Obesity: Yes (BMI 49.5)
--- NOTE | 2021-11-25 08:47 | Anesthesia Day of Surgery ---
Anesthesia Day of Surgery - Day of Surgery Patient Examined: Yes Patient H&P Reviewed: Yes Patient is NPO: Yes
[2021-11-25] MEDS ORDERED: SODIUM CHLORIDE 0.9% 1000 ML 1,000 ML IV SCH (09:00)
[2021-11-25] MEDS ORDERED: BENZOCAINE 20% TOP SPRAY 0.5 ML UNIT DOSE MM NR (09:00)
--- NOTE | 2021-11-25 09:41 | Post Anesthesia Evaluation ---
- Post Anesthesia Evaluation Patient Participated: Yes Airway Patent: Yes Stable Respiratory Function: Yes Nausea/Vomiting: No Temp > 96.8F: Yes Pain Manageable: Yes Adequeate Hydration: Yes Anesthesia Complications: No Block Receding Appropriately: Not Applicable Patient on Ventilator: No
[2021-11-25] MEDS: ARFORMOTEROL 15 MCG/2 ML NEBU IH SCH (09:55)
[2021-11-25] MEDS: BUDESONIDE 0.5 MG/2 ML NEBU IH SCH (09:55)
[2021-11-25] MEDS ORDERED: FUROSEMIDE 40 MG TAB PO SCH (10:00)
[2021-11-25 11:31] VITALS: BP 124/61
[2021-11-25] MEDS ORDERED: VERAPAMIL 80 MG TAB PO SCH (12:00)
[2021-11-25] MEDS ORDERED: VERAPAMIL 120 MG TAB PO SCH (12:00)
[2021-11-25] MEDS: APIXABAN 5 MG TAB PO SCH (12:02)
[2021-11-25] MEDS: busPIRone 10 MG TAB PO SCH (12:02)
[2021-11-25] MEDS: ASPIRIN EC 81 MG TAB PO SCH (12:02)
--- NOTE | 2021-11-25 13:30 | Discharge Summary ---
Providers - Providers Date of Admission: 11/16/21 17:42 Date of discharge: 11/25/21 Attending physician: KELLY ARCE MD 11/16/21 17:16 Consult to Physician [CONS] Urgent Comment: Consulting Provider: UBALDO SANTILLAN Physician Instructions: Reason For Exam: acute respiratory failure 11/17/21 14:24 Physical Therapy Evaluation and Treat [CONS] Routine Comment: Pt eval and treat Reason For Exam: weakness 11/19/21 12:21 Consult to Case Management [CONS] Routine Services Needed at Discharge: DME Equipment Notified:: APPLICATION DEVELOPMENT DIRECTOR Additional Physician Instructions: need trilogy on discharge 11/21/21 10:20 Consult to Physician [CONS] Routine Comment: Consulting Provider: ARI NG Physician Instructions: Reason For Exam: Reconsult- SVT HR in the 170s 11/21/21 10:56 Consult to Dietitian/Nutrition [CONS] Routine Physician Instructions: Reason For Exam: Reason for Consult: Diet education Primary care physician: FELLER OPERATOR Hospitalization Reason for admission: shortness of breath Condition: Stable Hospital course: Hospital course: This is a 76-year-old male with known past medical history of HTN, DM, morbid obesity, and bipolar disorder initially admitted to the floor for acute hypoxic and hypercapnic respiratory failure. Patient was transferred to the ICU overnight on 11/21 due to SVT, HR in the 170, unresponsive to IV adenosine. ICU Course to Date: 11/21: Patient was placed on cardizem gtt in the ICU. Patient converted to SR, HR in the 70-80s. Cardizem gtt is off this morning, VSS. Low dose BB added, Cardiology reconsulted. Continue PO lasix, stat labs ordered. Wean O2 supplementation as tolerated for SPO2 above 88%, Bipap at night. Pulmonary is also following. If patient remains stable by this afternoon, okay to transfer to IM. 11/22: Patient seen and examined, continue support care, 6L [place], denied any pain nor any discomfort at this time. Off cardizem gtt and back to SR this time. Will transfer to Telemetry floor, Continue diuresis and anticipte discharge in a day or two 11/23: Patient seen and examined doing better this morning I did discuss with cardiology they anticipate that the patient can be discharged today. Patient will need home oxygen on discharge with concentrator that can provide up to 5 to 6 L of oxygen. We have been working on getting him an NIV trilogy if this is not obtainable with strongly recommend that due to his significant obesity hypoventilation syndrome with chronic hypoxic hypercapnic respiratory failure. Will require PSG and full pulmonary evaluation as outpatient Patient continues to go in and out of atrial flutter per cardiology feels that this is secondary to his underlying medical condition which includes but not limited to his morbid obesity counseling has been provided to him on need to lose weight. He verbalized understanding. As a result of the paroxysmal nature of this arrhythmia Eliquis is now being recommended for him of discussed with him the importance and the risk factors associated with medication he verbalized understanding. 20 minutes counseling provided to him on lifestyle modification including weight loss he verbalized understanding. 11/24: Ventricular rate remains 140-160. Remainder of vitals stable, in no dist ress. Initiated on digoxin today in addition to amiodorone. D/w Dr. Sage. May consider KENNETH cardioversion if unable to control HR. 11/25: status post cardioversion. maintaining nsr, rate 60's. d/w dr. sage. ok to discharge home with verapamil and amiodrone. Patient to follow up in office. D/w cm re: home oxygen arrangements which have been set up. patient advised to follow up with pcp in 1-2 weeks. discharge meds: Melatonin, famotidine, fluticasone/salmeterol, verapamil, amiodarone, apixaban, aspirin, furosemide, metoprolol XL, albuterol nebulizer, methocarbamol Assessment and Plan #Supraventricular Tachycardia (SVT) # Atrial Flutter -paroxysmal #Acute on chronic CHF (Congestive Heart Failure) with Preserved EF #Hypertension - Code met overnight due to SVT, HR in the 170 s/p X3 dose of adenosine with no response - S/p Cardizem gtt, Converted to SR - Low dose BB added. patient remains on ASA, PO lasix, HTZ, and Verapamil - Cardiology reconsulted - Continue blood pressure monitor per protocol - Maintain MAP above 65 - Strict and I&Os and Daily weight - Close monitoring of renal function, stat labs pending #Acute Hypoxic and Hypercapneic Respiratory Failure #Pneumonia with Mixed Bacteria and COPD Exacerbation #Obesity Hypoventilation Syndrome - Currently on 10L [place] - Completed X5days course of IV Antiobiotics - Pulmonary is following - Continue gentle diurese and Nebx treatment per Pulmo - Bipap at night - Continue O2 supplementation and wean as tolerated - Continue SPO2 monitoring for SPO2 goal above 92% - Weight loss and increase physical activity discharge - Follow up with Pulmonary outpatient for PFT and sleep apnea eval #Type 2 Diabetes Mellitus - Consistent carbohydrate diet - BG check and SSI ACHS - Avoid Hypoglycemia - Hypoglycemic protocol #Bipolar Disorder - Continue supportive measures - Home meds resumed Disposition: HOME / SELF CARE / HOMELESS Final Discharge Diagnosis (Prints w/discharge instructions): acute hypoxic respiratory failure, supraventricular tachycardia, atrial flutter, acute on chronic congestive heart failure with preserved ef. Time spent for discharge: 35 Core Measure Documentation - Palliative Care Palliative Care/ Comfort Measures: Not Applicable - Core Measures Any of the following diagnoses?: none Exam - Physical Exam Narrative exam: Hospitalist Physical - Physical exam Narrative exam: - Physical Exam Narrative exam: General appearance: Present: no acute distress, well-nourished, obese - EENT Eyes: Present: PERRL, EOM intact ENT: hearing intact - Neck Neck: Present: normal ROM - Respiratory Respiratory effort: normal Respiratory: bilateral: diminished - Cardiovascular Rhythm: Irregular tachycardia Heart Sounds: Present: S1 & S2 - Extremities Extremities: no ischemia, pulses intact, pulses symmetrical Extremity abnormal: edema, erythema (BLE swelling and discoloration) - Peripheral Assessment Bilateral Lower Extremity Edema Type: Pitting Edema Degree: 3+ Capillary Refill: < 3 seconds Skin Temperature: Warm Generalized Edema Type: Non-pitting Edema Degree: 3+ Capillary Refill: < 3 seconds Skin Temperature: Warm Peripheral Pulses: within normal limits - Abdominal General gastrointestinal: soft, non-distended, normal bowel sounds, other (Obese) - Integumentary Integumentary: Present: warm, dry, erythema (BLE) - Psychiatric Psychiatric: appropriate mood/affect, cooperative - Neurologic Neurologic: CNII-XII intact, moves all extremities - Allied Health Allied health notes reviewed: nursing, case management - Constitutional Vitals: Temp Pulse Resp BP Pulse Ox 98.9 F 63 18 124/61 94 11/25/21 11:13 11/25/21 11:13 11/25/21 11:13 11/25/21 12:38 11/25/21 11:13 Plan Follow up with: PRIMARY CARE,MD [Primary Care Provider] - 7 Days DORIS MARC MD [Staff Physician] - 7 Days JESSICA SAGE MD [Staff Physician] - 7 Days Prescriptions: Melatonin [Melatonin 5MG TAB] 5 mg PO QHS #10 tablet Famotidine [Pepcid] 20 mg PO QHS #30 tablet Fluticasone/Salmeterol [Advair Diskus 250-50 mcg] 1 puff IH BID #1 can verapamiL [Calan] 80 mg PO Q8HR #90 tablet Apixaban [Eliquis] 5 mg PO Q12HR #60 tablet Aspirin EC [Halfprin EC] 81 mg PO QDAY #30 tablet Furosemide [Lasix TAB] 40 mg PO QDAY #60 tab Metoprolol Xl [Metoprolol SUCCINATE ER TAB] 25 mg PO QDAY #30 tablet ALBUTEROL NEB's [Proventil 0.083% NEBS] 2.5 mg IH Q4HRT PRN #90 nebu PRN Reason: Shortness Of Breath methOCARBAMOL [Robaxin TAB] 500 mg PO BID PRN #14 tablet PRN Reason: Muscle Spasm Other Discharge Orders: Nebulizer (Amb) Location: None Selected
--- NOTE | 2021-11-25 13:40 | Progress Note ---
Assessment and Plan Patient is a 76-year-old male with a reported past medical history of hypertension, diabetes, obesity, and bipolar disorder presented to the ED in respiratory distress who reports SOB for at least 1 week Acute respiratory failure Acute HFpEF A flutter with RVR Obesity hypoventilation syndrome Pneumonia? Hypertension Morbid obesity Diabetes next Echo 11/16/2021- Technically difficult study. EF 50 to 55%. Right ventricular systolic function is normal. No aortic regurgitation is present. Mild mitral regurgitation noted. Plan: Patient for KENNETH cardioversion today. Patient was suggested cardioverted to sinus rhythm Will stop amiodarone drip, and metoprolol. Continue amiodarone 20 mg p.o.twice daily Increase to verapamil 120 mg p.o. 4 times daily Continue Eliquis for anticoagulation If patient remains in sinus rhythm patient may be discharged from cardiac standpoint Due to patient's size and weight unable to perform ischemic eval. May be considered as an outpatient Patient follow-up with Dr. Sage, [facility] heart specialists, on 01/04/2022 at 9 AM in our [place] location. Phone #[phone] Patient seen in conjunction with Dr. Sage who agrees with this plan of care - Patient Problems (1) Acute heart failure with preserved ejection fraction (HFpEF) Current Visit: Yes Status: Acute (2) Acute respiratory failure with hypoxia and hypercapnia Current Visit: Yes Status: Acute (3) Opacities of both lungs present on chest x-ray Current Visit: Yes Status: Acute (4) Diabetes Current Visit: No Status: Acute (5) Hypertension Current Visit: No Status: Acute Qualifiers: Hypertension type: primary hypertension Qualified Code(s): I10 - Essential (primary) hypertension (6) Obesity hypoventilation syndrome Current Visit: Yes Status: Chronic (7) Pneumonia Current Visit: No Status: Acute Subjective Date of service: 11/25/21 Principal diagnosis: HFpEF,aflutter w/ RVR, obesity hypoventilation Interval history: Patient for KENNETH cardioversion this a.m. Patient previously a flutter is rate 80s to 90s with episodes into the 150s following cardioversion patient with sinus rhythm Objective Vital Signs Temp Temp Temp Pulse Pulse Pulse Resp 11/25/21 12:38 11/25/21 11:13 98.9 F 63 18 11/25/21 10:30 65 11/25/21 10:15 63 11/25/21 10:00 70 18 11/25/21 09:45 66 11/25/21 09:26 98.6 F 76 11/25/21 09:01 98.0 F 80 11/25/21 06:14 154 H 11/25/21 05:40 57 L 11/25/21 05:38 97.5 F L 18 11/25/21 02:00 11/25/21 01:32 78 11/25/21 01:29 97.4 F L 20 11/24/21 22:08 96 H 11/24/21 22:00 11/24/21 21:09 151 H 11/24/21 20:46 11/24/21 20:11 149 H 11/24/21 20:09 98.1 F 20 11/24/21 17:44 97.7 F 141 H 18 11/24/21 15:00 82 11/24/21 13:58 11/24/21 13:56 63 18 Resp Resp BP BP BP Pulse Ox Pulse Ox 11/25/21 12:38 124/61 11/25/21 11:13 124/61 94 11/25/21 10:30 20 126/74 100 11/25/21 10:15 22 132/48 100 11/25/21 10:00 16 129/75 96 99 11/25/21 09:45 27 H 129/60 99 11/25/21 09:26 11 L 136/65 100 11/25/21 09:01 16 136/60 11/25/21 06:14 132/58 11/25/21 05:40 97 11/25/21 05:38 132/58 11/25/21 02:00 87 11/25/21 01:32 96 11/25/21 01:29 110/75 11/24/21 22:08 11/24/21 22:00 97 11/24/21 21:09 110/74 11/24/21 20:46 97 11/24/21 20:11 97 11/24/21 20:09 110/74 11/24/21 17:44 127/81 96 11/24/21 15:00 11/24/21 13:58 138/71 11/24/21 13:56 138/71 93 Pulse Ox 11/25/21 12:38 11/25/21 11:13 11/25/21 10:30 11/25/21 10:15 11/25/21 10:00 11/25/21 09:45 11/25/21 09:26 11/25/21 09:01 99 11/25/21 06:14 11/25/21 05:40 11/25/21 05:38 11/25/21 02:00 11/25/21 01:32 11/25/21 01:29 11/24/21 22:08 11/24/21 22:00 11/24/21 21:09 11/24/21 20:46 11/24/21 20:11 11/24/21 20:09 11/24/21 17:44 11/24/21 15:00 11/24/21 13:58 11/24/21 13:56 - Physical Examination General: No Apparent Distress HEENT: Positive: EOMI, Normocephaly Neck: Positive: trachea midline. Negative: JVD/HJR Cardiac: Positive: Reg Rate and Rhythm Lungs: Positive: Decreased Breath Sounds Neuro: Positive: Grossly Intact Abdomen: Positive: Soft Skin: Negative: Rash Extremities: Present: edema, warm - Labs and Meds CBC 11/25/21 Range/Units 05:27 WBC 11.2 H (4.5-11.0) K/mm3 RBC 4.71 (3.65-5.03) M/mm3 Hgb 14.2 (11.8-15.2) gm/dl Hct 43.4 (35.5-45.6) % Plt Count 205 (140-440) K/mm3 - Imaging and Cardiology EKG: report reviewed, image reviewed Echo: report reviewed - Telemetry EKG Rhythm: Sinus Rhythm - EKG Sinus rhythms and dysrhythmias: sinus tachycardia Repolarization changes or abnormalities: nonspecific abnormality, ST segment, and/or T wave - Allied health notes Allied health notes reviewed: nursing
--- NOTE | 2021-11-26 11:34 | Electrocardiograph Report ---
[facility] Test Date: 2021-11-25 Test Time: 10:04:36 Pat Name: DAVE BARRIENTOS Department: Room: A457 1 Gender: M [employer]: ENA : 1945 Requested By: JESSICA HANDY Order Number: [id number] Reading MD: Junior Ngay Measurements Intervals [place] Rate: 61 P: 46 ND: 198 QRS: 104 QRSD: 144 T: 16 QT: 447 QTc: 452 Interpretive Statements Sinus rhythm Right bundle branch block Compared to ECG 11/16/2021 15:29:11 Left posterior fascicular block no longer present Electronically Signed On 11-26-2021 11:33:59 EDT by Junior Nagy
== END 2021-11-25 14:42 | disposition home health service (06) | DRG 871 ==
LOC: ED 12:05 → 4A 17:42 → CC1 11-21 03:36 → IMCU 11-21 15:51 → 4A 11-22 12:32
PROVIDERS: ADMIT Internal Medicine; ATTEND Internal Medicine
PROC: 4A033R1 Measurement of Arterial Saturation, Peripheral, Percutaneous Approach (ICD-10-PCS; principal; 2021-11-16)
PROC: 5A09457 Assistance with Respiratory Ventilation, 24-96 Consecutive Hours, Continuous Positive Airway Pressure (ICD-10-PCS; 2021-11-16)
PROC: 5A0935A Assistance with Respiratory Ventilation, Less than 24 Consecutive Hours, High Flow/Velocity Cannula (ICD-10-PCS; 2021-11-21)
PROC: 5A0935A Assistance with Respiratory Ventilation, Less than 24 Consecutive Hours, High Flow/Velocity Cannula (ICD-10-PCS; 2021-11-22)
PROC: 5A09357 Assistance with Respiratory Ventilation, Less than 24 Consecutive Hours, Continuous Positive Airway Pressure (ICD-10-PCS; 2021-11-23)
PROC: 5A0935A Assistance with Respiratory Ventilation, Less than 24 Consecutive Hours, High Flow/Velocity Cannula (ICD-10-PCS; 2021-11-23)
DX: A41.9 Sepsis, unspecified organism (principal); I50.23 Acute on chronic systolic (congestive) heart failure; J15.8 Pneumonia due to other specified bacteria; J96.01 Acute respiratory failure with hypoxia; J96.02 Acute respiratory failure with hypercapnia; E66.2 Morbid (severe) obesity with alveolar hypoventilation; Z68.43 Body mass index [BMI] 50.0-59.9, adult; J44.1 Chronic obstructive pulmonary disease with (acute) exacerbation; J44.0 Chronic obstructive pulmonary disease with (acute) lower respiratory infection; I48.92 Unspecified atrial flutter; I47.1 Supraventricular tachycardia; I11.0 Hypertensive heart disease with heart failure; F31.9 Bipolar disorder, unspecified; Z79.82 Long term (current) use of aspirin; F41.9 Anxiety disorder, unspecified; F01.50 Vascular dementia, unspecified severity, without behavioral disturbance, psychotic disturbance, mood disturbance, and anxiety; I67.2 Cerebral atherosclerosis; E88.81 Metabolic syndrome and other insulin resistance; E78.5 Hyperlipidemia, unspecified; Z83.3 Family history of diabetes mellitus; Z82.49 Family history of ischemic heart disease and other diseases of the circulatory system
CPT/HCPCS: 36415; 36600; 71045; 80048; 80053; 82565; 82803; 82962; 83735; 83880; 84100; 84439; 84443; 84484; 85007; 85025; 85027; 85610; 85730; 87040; 92960; 93005; 93306; 93312; 93320; 93325; 94640; 94660; 94760; 96365; 96367; 96375; 96376; 99291; G0378; J3490; Q9967; C8929; J0153; J0282; J0456; J0696; J1160; J1815; J1940; J2704; J7030; J7050